=== PATIENT | female | born 1985 | race Caucasian/White ===

== ENCOUNTER 2018-01-27 13:06 | Inpatient (IN) | payer OTHER ==
[2018-01-27] MEDS ORDERED: Ondansetron ODT 4 MG TAB PO PRN (13:47)
[2018-01-27] MEDS ORDERED: Ondansetron PF 4 MG/2 ML Vial IVP PRN (13:47)
[2018-01-27] MEDS ORDERED: Dextrose 5% in Water 1,000 ML IV PRN (13:47)
[2018-01-27] MEDS ORDERED: Dextrose 50% Abboject 50 ML SYRINGE SLOW IVP PRN (13:47)
[2018-01-27] MEDS ORDERED: Sodium Chloride 0.9% 10 ML ONE (13:54)
[2018-01-27] MEDS ORDERED: HumaLOG 300 UNITS/3 ML VIAL SC SCH (14:00)
--- NOTE | 2018-01-27 14:16 | PDOC.FPRHP ---
- History of Present Illness Chief Complaint: uncontrolled blood sugars History of Present Illness: 32F seen today at clinic for routine Ob visit. She is a at 9.3 weeks dated by 6.2 week US. Denies vaginal bleeding, LOF, abdominal pain/cramping. Endorses movement. PMH significant for chronic hypertension and pregestational IDDM. Per patient, her BS normally ranged from 350 to 400 prior to . For the last 9 weeks her fasting AM BS readings have been between 150 and 200. She is being admitted for uncontrolled BS with a need to titrate insulin. She is currently asymptomatic with no complaints. She has been compliant with her medication regimen. PCP has been titrating insulin dosages in OP setting with mild success. - Allergies/Adverse Reactions Allergies Allergy/AdvReac Type Severity Reaction Status Date / Time diphenhydramine Allergy Verified 01/27/18 14:17 [From Benadryl] - Home Medications Comments: She has titrated her Lantus to 20u qAM and Novolog to 13u before meals per her PCP's instructions - History PMHx: chronic HTN, IDDM, HLD, depression PSHx: bilateral tympanostomy tubes, adenoidectomy FHx: mother of lung cancer at age 60; father of colon cancer at age 53 Social: negative x 3 - Review of Systems General: denies: fever/chills, weight/appetite/sleep changes ENT: denies: nasal congestion, rhinorrhea Respiratory: denies: cough, congestion Cardiovascular: denies: chest pain, palpitation Gastrointestinal: reports: nausea. denies: diarrhea, abdominal pain Genitourinary: denies: dysuria, polyuria Skin: denies: rashes, lesions Musculoskeletal: denies: pain, tenderness Neurological: denies: numbness, syncope Psychological: denies: anxiety, depression - Vital signs BP: 125/75 HR: 94 RR: 16 Tmax: 97.6 Pox: 98% on RA - Physical Exam Constitutional: NAD HEENT: normocephalic and atraumatic Neck: supple, trachea midline Heart: RRR, normal S1/S2 Lungs: CTAB, no respiratory distress Abdomen: soft, non-tender, no masses/distention Neurological: no focal deficit, CN II-XII intact Skin: no rash/lesions, good turgor Psychiatric: normal mood and affect FMR H&P: Results - Labs Result Diagrams: 01/27/18 14:11 FMR H&P: A/P - Problem List (1) IDDM (insulin dependent diabetes mellitus) Current Visit: No Status: Chronic Priority: High Code(s): E11.9 - TYPE 2 DIABETES MELLITUS WITHOUT COMPLICATIONS; Z79.4 - INDUSTRIAL HYGIENIST (CURRENT) USE OF INSULIN Assessment and Plan: Last A1C: 10.3 Initiate Lantus 30u qAM with Humalog 17u premeal and mild SSI to cover Accuchecks: fasting AM, premeal, 2 hours post-prandial, and 0200 overnight Titrate accordingly (2) Hypertension Current Visit: No Status: Chronic Priority: Medium Code(s): I10 - ESSENTIAL (PRIMARY) HYPERTENSION Qualifiers: Hypertension type: essential hypertension Qualified Code(s): I10 - Essential (primary) hypertension Assessment and Plan: 2+ urine protein in office today Order 24h urine protein CMP pending Pressures well controlled on admission; continue to monitor (3) Intrauterine normal Current Visit: No Status: Acute Code(s): Z34.90 - ENCNTR FOR SUPRVSN OF NORMAL , UNSP, UNSP TRIMESTER FMR H&P: Upper Level - Plan Date/Time: 01/27/18 1408 I, [], have evaluated this patient and agree with findings/plan as outlined by internal medicine doctor resident. Pertinent changes/additions are listed here. Attending Addendum - Attending Addendum Date/Time: 01/28/18 1051 I personally evaluated the patient and discussed the management with Dr. Sheriff. I agree with and repeated the History, Examination, Assessment and Plan documented above with any addition or exceptions noted below. I have previously discussed in clinic her risks, including malformations, CHD, IUGR, LGA, Shoulder dystocia and NICU stay. She has failed outpatient titration and we will watch her very closely in the hospital. She voices understanding.
[2018-01-27 14:38] LABS: ALT (SGPT) 25 U/L (8-55); AST (SGOT) 20 U/L (5-34); Albumin 3.5 g/dL (3.5-5.0); Alkaline Phosphatase 66 U/L (40-150); Anion Gap 11 mmol/L (10-20); BUN (Urea Nitrogen) 9 mg/dL (7.0-18.7); Bilirubin, Total 0.2 mg/dL (0.2-1.2); Calc. Creatinine Clearance 0 mL/min (70-130); Carbon Dioxide 23 mmol/L (22-29); Chloride 106 mmol/L (98-107); Estimated GFR-MDRD Greater than 90; Glucose 190 mg/dL (70-105); Potassium 3.9 mmol/L (3.5-5.1); Protein, Total 6.5 g/dL (6.0-8.3); Sodium 136 mmol/L (136-145)
[2018-01-27] MEDS: HumaLOG 300 UNITS/3 ML VIAL SC SCH ×2 (15:28→18:57)
[2018-01-27] MEDS: HumaLOG 300 UNITS/3 ML VIAL SC PRN ×2 (15:29→18:57)
[2018-01-27 16:12] VITALS: BMI 50.1
[2018-01-27] MEDS: Acetaminophen 325 MG TAB PO PRN (19:22)
[2018-01-28 02:44] LABS: Glucose Accucheck Confirmation 109 mg/dl (70-105)
[2018-01-28] MEDS: Acetaminophen 325 MG TAB PO PRN ×2 (06:07→16:46)
--- NOTE | 2018-01-28 08:34 | PDOC.FM ---
- Subjective Subjective: 32 yo @9.4wks by 6.4wk elver admitted for uncontrolled type 2 diabetes. She was started on insulin about one week ago with difficulty in obtaining control. Prior to insulin she was on metformin and glyburide. Her regimen was increased yesterday upon admission to 30U Lantus qAM and 17U humalog AC. So far she has needed an additional 4 units. She denies complaints this morning. She was diagnosed with type 2 diabetes at 21 years old and she also has hypertension. She used to take amlodipine, which was dc'd upon discovering she was . Her father has it as well. Her mother and father also have hypertension also. - Objective MAR Reviewed: Yes Vital Signs & Weight: Vital Signs (12 hours) Temp Pulse Resp BP Pulse Ox 01/28/18 08:15 91 131/74 01/28/18 07:51 98.3 F 90 18 154/74 H 99 01/28/18 03:39 98.3 F 94 16 123/78 98 01/27/18 23:20 98.2 F 85 20 130/75 Weight Weight 131.995 kg I&O: 01/27/18 01/28/18 01/29/18 06:59 06:59 06:59 Output Total 750 Balance -750 Result Diagrams: 01/27/18 14:11 <Kesha Lockett - Last Filed: 01/28/18 09:19> - Objective Vital Signs & Weight: Vital Signs (12 hours) Temp Pulse Resp BP Pulse Ox 01/28/18 11:49 97.8 F 88 20 129/60 01/28/18 08:15 91 131/74 99 01/28/18 07:51 98.3 F 90 18 154/74 H 99 01/28/18 03:39 98.3 F 94 16 123/78 98 Weight Weight 131.995 kg I&O: 01/27/18 01/28/18 01/29/18 06:59 06:59 06:59 Output Total 750 150 Balance -750 -150 Result Diagrams: 01/27/18 14:11 <Magdi Zhang - Last Filed: 01/28/18 13:56> Phys Exam - Physical Examination Constitutional: NAD HEENT: PERRLA, moist MMs Respiratory: no wheezing, no rales, no rhonchi, clear to auscultation bilateral Cardiovascular: RRR, no significant murmur Gastrointestinal: soft, non-tender, no distention Musculoskeletal: no edema, pulses present Neurological: non-focal, normal sensation Psychiatric: normal affect, A&O x 3 Skin: no rash <Kesha Lockett - Last Filed: 01/28/18 09:19> Dx/Plan (1) Type 2 diabetes mellitus affecting in first trimester, antepartum Code(s): O24.111 - PRE-EXISTING TYPE 2 DIABETES, IN , FIRST TRIMESTER Status: Chronic (2) First trimester Code(s): Z34.91 - ENCNTR FOR SUPRVSN OF NORMAL PREG, UNSP, FIRST TRIMESTER Status: Acute (3) Hypertension Code(s): I10 - ESSENTIAL (PRIMARY) HYPERTENSION Status: Chronic Qualifiers: Hypertension type: essential hypertension Qualified Code(s): I10 - Essential (primary) hypertension - Plan Plan: 32 yo @9.4wks by 6.4wk sono admitted for uncontrolled type 2 diabetes. #sIUP #Type 2 Diabetes, uncontrolled, affecting -accuchecks AC, postprandial, and qAm fasting -regimen increased to 30U Lantus daily and 17U Humalog AC -mild sliding scale onboard; so far since admission yesterday afternoon, pt has required 4U Humalog additionally -will consult dietitian for support on diet #Chronic Hypertension -pt was taking amlodipine which was dc'd in -will monitor here -24 hour urine protein in progess 2/2 2+ protein on urine dip in clinic -24 hour urine protien in clinic: 1500mg/24 hr #sIUP- -HR, would recommend aspirin at 12 weeks and recommend MFM referral, and surveillance starting at 32 weeks -Follow-up with him upon discharge regarding management <Kesha Lockett - Last Filed: 01/28/18 09:19> Attending Addendum - Attending Addendum Date/Time: 01/28/18 0682 I personally evaluated the patient and discussed the management with Dr. Lizet Zamarripa. I agree with the History, Examination, Assessment and Plan documented above with any addition or exceptions noted below. No c/o's. Vitals stable, single episode SBP >140. Insulin adjusted. Dietary counselling. Weight neutral . Supervised self-administration of insulin and monitoring of accuchecks. <Magdi Zhang - Last Filed: 01/28/18 13:56>
[2018-01-28] MEDS ORDERED: Insulin Glargine 30 UNITS in Pre-Filled Syringe 1 EACH SC SCH (09:00)
[2018-01-28] MEDS: HumaLOG 300 UNITS/3 ML VIAL SC SCH ×3 (09:01→17:49)
[2018-01-28 14:56] LABS: Collection Duration 24 hrs; Urine Total Volume 1200 mL (600-1600)
[2018-01-28 15:24] LABS: Protein - 24 Hr 1080 mg/24 hr (Less than 300); Protein, Urine 90 mg/dL (1-14)
[2018-01-28] MEDS ORDERED: Ondansetron ODT 4 MG TAB PO PRN (16:03)
[2018-01-28] MEDS: HumaLOG 300 UNITS/3 ML VIAL SC PRN (17:49)
--- NOTE | 2018-01-29 08:07 | PDOC.FM ---
- Subjective Subjective: No acute events overnight. - Objective MAR Reviewed: Yes Vital Signs & Weight: Vital Signs (12 hours) Temp Pulse Resp BP Pulse Ox 01/29/18 03:24 98.3 F 92 18 140/81 97 01/28/18 23:37 97.9 F 82 18 140/73 100 Weight Weight 86.183 kg I&O: 01/28/18 01/29/18 01/30/18 06:59 06:59 06:59 Output Total 750 150 Balance -750 -150 Result Diagrams: 01/27/18 14:11 Phys Exam - Physical Examination Constitutional: NAD HEENT: PERRLA, moist MMs Respiratory: no wheezing, no rales, clear to auscultation bilateral Cardiovascular: RRR, no significant murmur Gastrointestinal: soft, non-tender Musculoskeletal: no edema, pulses present Neurological: non-focal Psychiatric: normal affect, A&O x 3 Skin: no rash Dx/Plan (1) Type 2 diabetes mellitus affecting in first trimester, antepartum Code(s): O24.111 - PRE-EXISTING TYPE 2 DIABETES, IN , FIRST TRIMESTER Status: Chronic (2) First trimester Code(s): Z34.91 - ENCNTR FOR SUPRVSN OF NORMAL PREG, UNSP, FIRST TRIMESTER Status: Acute (3) Hypertension Code(s): I10 - ESSENTIAL (PRIMARY) HYPERTENSION Status: Chronic Qualifiers: Hypertension type: essential hypertension Qualified Code(s): I10 - Essential (primary) hypertension - Plan Plan: 32 yo @9.5wks by 6.4wk elver admitted for uncontrolled type 2 diabetes. #Type 2 Diabetes, uncontrolled, affecting -accuchecks AC, postprandial, and qAm fasting -regimen increased to 30U Lantus daily and 17U Humalog AC, required additional 6U Lispo overnight -Increased 33U Lantus daily and to 18U AC today. Will also change sliding scale to the same short acting that she is using before meals. -will consult dietitian for support on diet #Chronic Hypertension -pt was taking amlodipine which was dc'd in -will monitor here -24 hour urine protein here showed 1080mg/24 hours -24 hour urine protien in clinic: 1500mg/24 hr #sIUP- -High risk, would recommend aspirin at 12 weeks and recommend MFM referral -Follow-up with him upon discharge regarding management
[2018-01-29] MEDS ORDERED: Insulin Glargine 33 UNITS in Pre-Filled Syringe 1 EACH SC SCH (09:00)
[2018-01-29] MEDS: HumaLOG 300 UNITS/3 ML VIAL SC SCH ×3 (09:46→18:08)
[2018-01-29] MEDS: HumaLOG 300 UNITS/3 ML VIAL SC PRN (12:48)
[2018-01-29 20:20] VITALS: BP 139/70; TEMP 98
== END 2018-01-29 21:30 | disposition home or self-care (01) | DRG 832 ==
LOC: OBSVTOIN 13:06 → 3SW 13:06
PROVIDERS: ADMIT Family Medicine; ATTEND Family Medicine
DX: O24.111 Pre-existing type 2 diabetes mellitus, in pregnancy, first trimester (principal); O10.011 Pre-existing essential hypertension complicating pregnancy, first trimester; E11.65 Type 2 diabetes mellitus with hyperglycemia; Z3A.09 9 weeks gestation of pregnancy; N76.0 Acute vaginitis; O09.891 Supervision of other high risk pregnancies, first trimester; O99.341 Other mental disorders complicating pregnancy, first trimester; F41.9 Anxiety disorder, unspecified; F32.9 Major depressive disorder, single episode, unspecified; Z79.4 Long term (current) use of insulin; E78.5 Hyperlipidemia, unspecified
CPT/HCPCS: 36415; 36416; 80053; 82947; 84156; Q0162

== ENCOUNTER 2018-06-17 21:00 | Inpatient (IN) | payer OTHER ==
[~2018-06-17 21:00] MED LIST: ISOVUE-370 76%-LOCM 1 ML ONE
[2018-06-17 21:50] VITALS: BMI 46.3
[2018-06-17 23:25] LABS: #Eosinphils 0.1 thou/uL (0.0-0.7); #Lymphocytes 3.2 thou/uL (1.20-3.40); #Monocytes 0.7 thou/uL (0.11-0.59); #Neutrophils 12.2 thou/uL (1.40-6.50); %Basophils 0.2 % (0.0-1.0); %Eosinophils 0.5 % (0.0-10.0); %Lymphocytes 19.7 % (21.0-51.0); %Monocytes 4.2 % (0.0-10.0); %Neutrophils 75.4 % (42.0-75.0); Hemoglobin 11.2 g/dL (12.0-16.0); Mean Corpuscular Hemoglobin 25.4 pg (27.0-31.0); Mean Corpuscular Volume 79.4 fL (78.0-98.0); Mean Platelet Volume 7.1 fL (7.4-10.4); Platelet Count 282 thou/uL (130-400); RBC Distribution Width 13.6 % (11.5-14.5); Red Blood Cell (RBC) Count 4.43 mill/uL (4.20-5.40); White Blood Cell (WBC) Count 16.1 thou/uL (4.8-10.8)
--- NOTE | 2018-06-17 23:25 | PDOC.FPRHP ---
- Allergies/Adverse Reactions Allergies Allergy/AdvReac Type Severity Reaction Status Date / Time diphenhydramine Allergy Hives Verified 06/17/18 21:37 [From Benadryl] - Home Medications Medication Instructions Recorded Confirmed Type Pnv No.95/Ferrous Fum/Folic AC 1 each PO DAILY 01/27/18 06/17/18 History [ Vitamin Tablet] metFORMIN HCl [Metformin HCl] 1 tablet PO DAILY 01/27/18 06/17/18 History pyridOXINE [Vitamin B 6] 100 mg PO DAILY 01/27/18 06/17/18 History FLUoxetine HCl [Prozac] 20 mg PO HS 06/17/18 06/17/18 History HumaLOG [HumaLOG Vial] 21 units SC AC 06/17/18 06/17/18 History Insulin Glargine [Lantus Vial] 40 units SC QPM 06/17/18 06/17/18 History Ranitidine HCl [Zantac 75] 75 mg PO DAILY 06/17/18 06/17/18 History - History PMHx: PSHx: FHx: Social: - Vital signs BP: [] HR: [] RR: [] Tmax: [] Pox: []% on [] Wt: [] FMR H&P: Upper Level - Plan Date/Time: 06/17/18 8053 I, [], have evaluated this patient and agree with findings/plan as outlined by design intern resident. Pertinent changes/additions are listed here.
--- NOTE | 2018-06-17 23:28 | PDOC.FPROB ---
FMR OB H&P: HPI - History of Present Illness Chief Complaint: Headache Indentification: G1 History of Present Illness: 33yo G1 at 30.3w EGA by 12.1w US with hx of cHTN, DM2, and migraine presents for evaluation of headache, and stroke like symptoms. Pt reports she took her BP at work on a self checking station and had 203/100. She checked again at home and 140/80. She decided to come to [facility] because she started having a HEAD that has worsened up to time of evaluation. Additionally pt complains of "white blobs" visual disturbance in her peripheral vision. She reports that she has hx of migrain but became concerned when she also started having L facial numbness and facial droop. Facial symptoms lasted 10 minutes, resolved spontaneously and resumed an hour later only to resolve again after 2 minutes. No vaginal bleeding /LOF/contractions, good mvmt. Primary Care Physician: Doctor Mal Vargas FMR OB H&P: Current - Care : 1 Gestational age: 30.3 Dating Criteria: 12.1w US - OB Labs Blood type: O RH: positive Antibody Screen: negative HIV: negative RPR: negative HepBsAg: negative Gonorrhea: negative Chlamydia: negative FMR OB H&P: History - Past Medical History PMH: DM2, cHTN, PCOS, seizure d/o, migraine, chronic sinus tachycardia - Surgical History Sx History: tonsills - Social History Social History: denies t/a/d - Family History Family History: [place]- mother FMR OB H&P: Medications - Current Home Medications: Medication Instructions Recorded Confirmed Type Pnv No.95/Ferrous Fum/Folic AC 1 each PO DAILY 01/27/18 06/17/18 History [ Vitamin Tablet] metFORMIN HCl [Metformin HCl] 1 tablet PO DAILY 01/27/18 06/17/18 History pyridOXINE [Vitamin B 6] 100 mg PO DAILY 01/27/18 06/17/18 History FLUoxetine HCl [Prozac] 20 mg PO HS 06/17/18 06/17/18 History HumaLOG [HumaLOG Vial] 21 units SC AC 06/17/18 06/17/18 History Insulin Glargine [Lantus Vial] 40 units SC QPM 06/17/18 06/17/18 History Ranitidine HCl [Zantac 75] 75 mg PO DAILY 06/17/18 06/17/18 History Allergies/Adverse Reactions: Allergies Allergy/AdvReac Type Severity Reaction Status Date / Time diphenhydramine Allergy Hives Verified 06/17/18 21:37 [From Benadryl] FMR OB H&P: ROS - Review of Systems General: denies: fever/chills, fatigue, recent trauma Eyes: reports: vision changes. denies: double vision ENT: denies: nasal congestion, ringing in ears Cardiovascular: denies: chest pain, palpitation Respiratory: denies: cough, congestion Gastrointestinal: denies: abdominal pain, diarrhea Genitourinary (Female): denies: incontinence, dysuria Musculoskeletal: denies: pain, stiffness Neurologic: reports: numbness, headache. denies: syncope, seizures, weakness, loss of counsciousness Integumentary: denies: itching, rash Endocrine: denies: cold intolerance, heat intolerance Hematologic/Lymphatic: denies: prolonged or excessive bleeding Psychological: denies: anxiety, paranoia FMR OB H&P: Vital Signs - Maternal Vital signs: Vital Signs - First Documented Temp Pulse Resp BP 98.2 F 105 H 20 140/82 06/17/18 21:22 06/17/18 21:22 06/17/18 21:22 06/17/18 21:22 FMR OB H&P: Physical Exam - Physical Exam General: NAD, awake, alert and oriented HEENT: EOMI, grossly normal vision, grossly normal hearing Neck: supple, trachea midline Chest: non-tender to palpation Breast: symmetric Heart: RRR, normal S1/S2 General: CTAB, no respiratory distress Abdomen: soft, gravid Musculoskeletal: pulses present, no atrophy Neurological: sensation to pain,touch and proprioception grossly normal, DTR +2 , strength +5, no clonus, no tremor, no focal deficit, other (L facial sensation 4/5, otherwise CN 2-12 intact) Skin: no rash, good tugor Lymphatic: no purpura, no petechia Psychiatric: intact recent and remote memory, good judgement and insight FMR OB H&P: Results - Labs Lab results: Laboratory Results - last 24 hr 06/17/18 23:18 WBC 16.1 H RBC 4.43 Hgb 11.2 L Hct 35.2 L MCV 79.4 MCH 25.4 L MCHC 32.0 RDW 13.6 Plt Count 282 MPV 7.1 L Neutrophils % 75.4 H Lymphocytes % 19.7 L Monocytes % 4.2 Eosinophils % 0.5 Basophils % 0.2 Neutrophils # 12.2 H Lymphocytes # 3.2 Monocytes # 0.7 H Eosinophils # 0.1 Basophils # 0.0 FMR OB H&P: A/P - Problem List (1) Diabetes Current Visit: Yes Status: Acute Code(s): E11.9 - TYPE 2 DIABETES MELLITUS WITHOUT COMPLICATIONS (2) Migraine Current Visit: Yes Status: Acute Code(s): G43.909 - MIGRAINE, UNSP, NOT INTRACTABLE, WITHOUT STATUS MIGRAINOSUS (3) Hypertension Current Visit: No Status: Chronic Code(s): I10 - ESSENTIAL (PRIMARY) HYPERTENSION Qualifiers: Hypertension type: essential hypertension Qualified Code(s): I10 - Essential (primary) hypertension Discussion: Complex migraine vs. TIA vs. CVA A- L facial symptoms and home BP taken at work concerning for stroke though pt does have hx of migraine and visual aura is typical. BPs are stable on floor now with SBP not exceeding 140. P- Activate code green/code stroke with attached imaging and labwork -CT brain w/o contrast -CTA head and neck w/wo contrast -use shield to avoid irradiating fetus -pending normal workup will consider transfer to [facility] with neuro checks, q- shift NST, and AM MRI chronic hypertension A- readings on self check machine at [facility] were quite elevated however checks at home and in labor and delivery consistent with pressures taken in clinic SBP 140 at highest. Pt had 24hr protein collected in clinic early in the morning P- CBC, CMP, urine protein/cr - will check to see if clinic lab 24 urine protein has resulted - monitor BP and for severe pressure symptoms DM -home meds Addendum - Attending - Attending Attestation Date/Time: 06/18/18 0600 I personally evaluated the patient and discussed the management with Dr. Zimmerman and Divine. I agree with and repeated the History, Examination, Assessment and Plan documented above with any addition or exceptions noted below. Headache resolved by the time I evaluated her. She has had a couple episodes of facial numbness and feeling like her face is weak. No arm or leg numbness or weakness. No dysarthria or dysphagia. CN II-XII specifically testing and symmetric with the exception of v1 on the left. Motor 5/5; SILT otherwise. No clonus. No inc DTRs.
[2018-06-17 23:30] LABS: PTT 26.8 SEC (22.9-36.1); Prothrombin Time 13.6 SEC (12.0-14.7)
--- NOTE | 2018-06-17 23:39 | CT ---
FHead CT without contrast 06/17/2018 COMPARISON: none HISTORY: Left-sided facial droop and numbness, headache TECHNIQUE: Axial CT imaging at 5 mm intervals from vertex through skull base without contrast FINDINGS: The imaged paranasal sinuses/mastoid air cells demonstrate a few inferior opacified mastoid air cells on the right. No acute osseous abnormality is noted. No intracranial hemorrhage, midline s hift, mass effect, or ventricular enlargement. IMPRESSION: No intracranial hemorrhage.
[2018-06-17 23:40] LABS: ALT (SGPT) 27 U/L (8-55); AST (SGOT) 22 U/L (5-34); Albumin 3.4 g/dL (3.5-5.0); Alkaline Phosphatase 70 U/L (40-150); Anion Gap 16 mmol/L (10-20); BUN (Urea Nitrogen) 9 mg/dL (7.0-18.7); Bilirubin, Total 0.2 mg/dL (0.2-1.2); CK (CPK) 37 U/L (29-168); Calc. Creatinine Clearance 284 mL/min (70-130); Calcium 9.3 mg/dL (7.8-10.44); Carbon Dioxide 21 mmol/L (22-29); Chloride 104 mmol/L (98-107); Estimated GFR-MDRD Greater than 90; Globulin 3.5 g/dL (2.4-3.5); Glucose 102 mg/dL (70-105); Potassium 3.7 mmol/L (3.5-5.1); Protein, Total 6.9 g/dL (6.0-8.3); Sodium 137 mmol/L (136-145)
[2018-06-17 23:45] LABS: CKMB 1.1 ng/mL (0-6.6); Troponin I Less than 0.010 ng/mL (< 0.028)
[2018-06-17 23:58] LABS: Syphilis Antibody Nonreactive (Nonreactive); Syphilis Antibody Index 0.11 S/CO (<1.00 Non-Reactive)
--- NOTE | 2018-06-17 23:58 | CT ---
FCT angiogram of head and neck: 06/17/2018 COMPARISON: None HISTORY: Headache, left-sided facial droop and numbness TECHNIQUE: Axial CT imaging at 1.25 mm intervals from vertex through lung apices with IV contrast usi ng a CT angiogram protocol. Coronal and sagittal 3-D reformatted imaging obtained. FINDINGS: The visualized lung apices are unremarkable. The paranasal sinuses and mastoid air cells demonstrate partial opacification of the right mastoid ai r cells. Polypoid mucosal thickening of the left maxillary sinus inferiorly noted. Parotid glands and submandibular glands grossly unremarkable. Thyroid gland, cricoid cartilage, thyroid cartilage, hyoi d bone, and tonsillar pillars grossly unremarkable. No lymphadenopathy is seen within the neck. Origin of the great vessels appears grossly unremarkable. Detailed assessment of the structures of th e neck somewhat limited on the basis of streak artifact associated with body habitus. Bilateral verte bral arteries appear grossly unremarkable. No hemodynamically significant stenosis on the basis of NASCET criteria is seen involving the common carotid artery or the internal carotid artery on either side. The basilar artery appears patent as do the branches of the basilar artery. The M1 segment and A1 seg ment appears patent bilaterally. No central arterial occlusion. No acute osseous abnormality. IMPRESSION: No acute findings. Results called to Dr. Zimmerman at 11:55 PM 06/17/2018
[2018-06-17 23:59] LABS: HBSAg Index 0.43 S/CO (0-0.99); Hep B Surf Ag Non-Reactive S/CO (NonReactive)
[2018-06-18] MEDS ORDERED: Ondansetron PF 4 MG/2 ML Vial IVP PRN (00:19)
[2018-06-18 00:21] LABS: Amphetamine Not Detected (NotDetected); Barbiturates Screen Not Detected (NotDetected); Benzodiazepine Screen Not Detected (NotDetected); Cocaine Metabolite Screen Not Detected (NotDetected); Medtox Reader # READER 1; Methadone Not Detected (NotDetected); Methamphetamine Not Detected (NotDetected); Opiate Screen Not Detected (NotDetected); Oxycodone Screen Not Detected (NotDetected); Phencyclidine (PCP) Not Detected (NotDetected); THC/Cannabinoid Screen Not Detected (NotDetected); Tricyclic Screen Not Detected (NotDetected)
[2018-06-18 00:22] LABS: Medtox Control Line Valid? VALID (VALID)
[2018-06-18 00:25] LABS: Creatinine, Urine 186.42 mg/dL (47-110)
[2018-06-18] MEDS ORDERED: Dextrose 50% Abboject 50 ML SYRINGE SLOW IVP PRN (00:30)
[2018-06-18] MEDS ORDERED: Dextrose 5% in Water 1,000 ML IV PRN (00:30)
[2018-06-18] MEDS ORDERED: Acetaminophen 500 MG TAB PO PRN (01:14)
--- NOTE | 2018-06-18 02:19 | CON ---
DATE OF CONSULTATION: 06/18/2018 REFERRING PHYSICIAN: Dr. Chiang. CHIEF COMPLAINT: Headache and elevated blood pressures with facial paresthesias or tingling. HISTORY OF PRESENT ILLNESS: The patient is a 33-year-old G1, P0 female with an intrauterine at 30 weeks and 4 days, who presented to Labor and Delivery after experiencing a high blood pressure in the 200 systolic by a [employer] automatic cuff and associated facial drooping and numbness. Upon arrival, the patient was noted to have blood pressures in the 140s. A code green was called and a stroke assessment was performed and imaging was also performed, which revealed negative results. At time of my evaluation, the patient reports that she is feeling somewhat better. She is still having headache that she describes as frontal. She denies any light or sound sensitivity or any significant nausea associated with it. She does report she has a history of migraines and in the last month or so has been having about 3 migraines a week. The patient reports that this headache does not have the intensity that her migraines have. She did take Tylenol earlier today and has had some benefit. The patient reports that she has been having borderline normal to elevated blood pressures in the office in the 130s to 140s over 80s to 90s. Her nurse did report that she had a 24 hour urine collection that was turned in earlier today. The patient denies any recent fever. She does report a chronic intermittent cough. She reports nausea with vomiting a couple times a week. She denies chest pain. She reports some shortness of breath in the last few weeks. Denies diarrhea or constipation. Denies any new rashes. Denies hip problems, knee problems, or muscle weakness. Denies vaginal bleeding or leakage of fluid. Denies urinary urgency. The patient reports that she is a diabetic and her blood sugars have been ranging in the 130s to 140s 2 hours postprandial. PAST MEDICAL HISTORY: Anxiety, prediabetes and heartburn. ALLERGIES: BENADRYL. MEDICATIONS: 1. Metformin. 2. B6. 3. Prozac 20 mg at night. 4. Humalog 21 units before meals and Lantus 40 units at night. 5. Zantac 75 mg daily. SOCIAL HISTORY: Denies drug, alcohol or tobacco use. OB LABS: Unavailable at time of dictation. REVIEW OF SYSTEMS: Per HPI. PAST SURGICAL HISTORY: The patient reports tonsillectomy. PHYSICAL EXAMINATION: VITAL SIGNS: The patient's blood pressure here in Labor and Delivery have been primarily in the mild range, 140s to 150 systolic over 70s to 80s diastolic. She has had a single 166/86 and had couple normal blood pressures as low as 125/65, heart rate in the 100s, respiratory rate 20, temperature 98.2. GENERAL: She appears to be in no acute distress. She is alert, oriented, cooperative, pleasant to interact with. HEAD: Normocephalic, atraumatic. LUNGS: Clear to auscultation bilaterally. HEART: Has regular rate, was slightly tachycardic and regular rhythm. heart tracing demonstrates the fetus in the 140s with moderate long-term variability, positive 15/15 accelerations. Tocometer showing no contractions. LABORATORY DATA: White count of 16.1, hemoglobin 11.2, hematocrit 35.2, platelets 282,000. PT 13.6, INR 1.08, PTT 26.8. Sodium 137, potassium 3.7, creatinine 0.59, glucose of 102, AST of 22, ALT of 27, CK-MB 1.1, troponin less than 0.010. Urine shows a urine random protein of 88 and creatinine of 186, which gives her a ratio of 0.47. Urine drug screen is negative. Syphilis is nonreactive. Blood type is O positive. Antibody screen is negative. ASSESSMENT AND PLAN: The patient is a 33-year-old female with preeclampsia, diabetes and anxiety. Preeclampsia is diagnosed by elevated blood pressures and proteinuria. Her diabetes is reportedly under moderate control. Her blood sugar at this time is within normal limits at 102. The patient has had a single severe range pressure. Should she continue to have severe range pressures, recommendations would be to institute magnesium and attempt to find an oral regimen that can control her pressures into the 140s and 150 systolic and 90s diastolic. Should this be difficult to do, recommendations with the delivery after institution of steroids is possible. However, this time her pressures have been primarily mild range without any intervention. Should she need intervention, labetalol 20 mg IV or hydralazine 10 mg would be at reasonable place to start. Another option would be 20 mg of nifedipine sublingually. The patient is being admitted to the Family Medicine team. We would continue her home medications and given that the patient has just returned a 24 hour urine collection this morning, we would not necessarily repeat another one at this time. If not done so yet, an ultrasound to determine presentation and weight would be appropriate. Also given her total picture, it may be appropriate to institute a course of steroids for lung maturity. Thank you for the opportunity to participate in Ms. Casi Sheriff's acid missed care. Addendum. correction: Pt does have baseline proteinuria with baseline at 1500- and repeat 24hr urine protein at 250 Pt has chtn but no clear evidence of si preeclampsia at this time. Job ID: [id number] [facility] CENTERStalin
--- NOTE | 2018-06-18 06:08 | PDOC.EVN ---
Event Note - Event Note Event Note: 24 urine protein from clinic in 1T was 1500 mg.
[2018-06-18] MEDS: HumaLOG 300 UNITS/3 ML VIAL SC SCH ×2 (07:52→12:33)
--- NOTE | 2018-06-18 08:07 | PDOC.OBAPN ---
FMR OB AP PN: Sub - Interval History Hospital Day: 2 Chief Complaint: HEAD, elevated BP Indentification: 33yo G1 @ 30.3 wks Interval History: Patient doing well this AM, resting in bed. No recurrence of symptoms. FMR OB AP PN: Obj - Maternal Vital signs: BP: 128-141/54-91 HR: 92-112 RR: 20 Tmax: 98.2 Pox: 98% on RA Wt: 130.2kg - Urine output I&O: 06/17/18 06/18/18 06/19/18 06:59 06:59 06:59 Intake Total 600 Output Total 150 Balance 450 FMR OB AP PN: Exam - Physical Exam General: NAD, awake, alert and oriented HEENT: normocephalic and atraumatic, PERRLA, EOMI, MMM, grossly normal vision, grossly normal hearing Neck: supple, FROM Chest: non-tender to palpation, no lesions Heart: RRR, normal S1/S2, no murmurs/rubs/gallops, pulses present, no edema General: CTAB, no respiratory distress, good air movement, no rales/rhonchi, no wheezing, no retractions Abdomen: soft, non-tender, bowel sound present Musculoskeletal: normal gait and station, FROM in all four extremities Neurological: cranial nerves II through XII intact, sensation to pain,touch and proprioception grossly normal Skin: no rash, good tugor, capillary refill <2 seconds Psychiatric: intact recent and remote memory, good judgement and insight, normal mood and affect FMR OB AP PN: Data - Labs Lab results: Laboratory Results - last 24 hr 06/17/18 06/17/18 06/17/18 23:16 23:18 23:18 WBC RBC Hgb Hct MCV MCH MCHC RDW Plt Count MPV Neutrophils % Lymphocytes % Monocytes % Eosinophils % Basophils % Neutrophils # Lymphocytes # Monocytes # Eosinophils # Basophils # PT 13.6 INR 1.0 APTT 26.8 Sodium Potassium Chloride Carbon Dioxide Anion Gap BUN Creatinine Estimated GFR (MDRD) Glucose POC Glucose Calcium Total Bilirubin AST ALT Alkaline Phosphatase Creatine Kinase CK-MB (CK-2) Troponin I Serum Total Protein Albumin Globulin Albumin/Globulin Ratio U Random Total Protein Urine Creatinine Urine Opiates Screen Ur Oxycodone Screen Urine Methadone Screen Ur Propoxyphene Screen Ur Barbiturates Screen Ur Tricyclics Screen Ur Phencyclidine Scrn Ur Amphetamines Screen U Methamphetamines Scrn U Benzodiazepines Scrn U Cocaine Metab Screen U Cannabinoids Screen Drug Screen Comment Syphilis IgG/IgM Ab Nonreactive Hep Bs Antigen Non-Reactive Blood Type Antibody Screen 06/17/18 06/17/18 06/17/18 23:18 23:18 23:18 WBC 16.1 H RBC 4.43 Hgb 11.2 L Hct 35.2 L MCV 79.4 MCH 25.4 L MCHC 32.0 RDW 13.6 Plt Count 282 MPV 7.1 L Neutrophils % 75.4 H Lymphocytes % 19.7 L Monocytes % 4.2 Eosinophils % 0.5 Basophils % 0.2 Neutrophils # 12.2 H Lymphocytes # 3.2 Monocytes # 0.7 H Eosinophils # 0.1 Basophils # 0.0 PT INR APTT Sodium 137 Potassium 3.7 Chloride 104 Carbon Dioxide 21 L Anion Gap 16 BUN 9 Creatinine 0.59 L Estimated GFR (MDRD) Greater than 90 Glucose 102 POC Glucose Calcium 9.3 Total Bilirubin 0.2 AST 22 ALT 27 Alkaline Phosphatase 70 Creatine Kinase 37 CK-MB (CK-2) Troponin I Serum Total Protein 6.9 Albumin 3.4 L Globulin 3.5 Albumin/Globulin Ratio 1.0 L U Random Total Protein Urine Creatinine Urine Opiates Screen Ur Oxycodone Screen Urine Methadone Screen Ur Propoxyphene Screen Ur Barbiturates Screen Ur Tricyclics Screen Ur Phencyclidine Scrn Ur Amphetamines Screen U Methamphetamines Scrn U Benzodiazepines Scrn U Cocaine Metab Screen U Cannabinoids Screen Drug Screen Comment Syphilis IgG/IgM Ab Hep Bs Antigen Blood Type O POSITIVE Antibody Screen NEGATIVE 06/17/18 06/17/18 06/17/18 23:18 23:56 23:56 WBC RBC Hgb Hct MCV MCH MCHC RDW Plt Count MPV Neutrophils % Lymphocytes % Monocytes % Eosinophils % Basophils % Neutrophils # Lymphocytes # Monocytes # Eosinophils # Basophils # PT INR APTT Sodium Potassium Chloride Carbon Dioxide Anion Gap BUN Creatinine Estimated GFR (MDRD) Glucose POC Glucose Calcium Total Bilirubin AST ALT Alkaline Phosphatase Creatine Kinase CK-MB (CK-2) 1.1 Troponin I Less than 0.010 Serum Total Protein Albumin Globulin Albumin/Globulin Ratio U Random Total Protein 88 H Urine Creatinine 186.42 H Urine Opiates Screen Not Detected Ur Oxycodone Screen Not Detected Urine Methadone Screen Not Detected Ur Propoxyphene Screen Not Detected Ur Barbiturates Screen Not Detected Ur Tricyclics Screen Not Detected Ur Phencyclidine Scrn Not Detected Ur Amphetamines Screen Not Detected U Methamphetamines Scrn Not Detected U Benzodiazepines Scrn Not Detected U Cocaine Metab Screen Not Detected U Cannabinoids Screen Not Detected Drug Screen Comment Syphilis IgG/IgM Ab Hep Bs Antigen Blood Type Antibody Screen 06/18/18 06/18/18 06/18/18 00:00 01:19 06:29 WBC RBC Hgb Hct MCV MCH MCHC RDW Plt Count MPV Neutrophils % Lymphocytes % Monocytes % Eosinophils % Basophils % Neutrophils # Lymphocytes # Monocytes # Eosinophils # Basophils # PT INR APTT Sodium Potassium Chloride Carbon Dioxide Anion Gap BUN Creatinine Estimated GFR (MDRD) Glucose POC Glucose 111 H 100 Calcium Total Bilirubin AST ALT Alkaline Phosphatase Creatine Kinase CK-MB (CK-2) Troponin I Serum Total Protein Albumin Globulin Albumin/Globulin Ratio U Random Total Protein Urine Creatinine Urine Opiates Screen Ur Oxycodone Screen Urine Methadone Screen Ur Propoxyphene Screen Ur Barbiturates Screen Ur Tricyclics Screen Ur Phencyclidine Scrn Ur Amphetamines Screen U Methamphetamines Scrn U Benzodiazepines Scrn U Cocaine Metab Screen U Cannabinoids Screen Drug Screen Comment Syphilis IgG/IgM Ab Hep Bs Antigen Blood Type O POSITIVE Antibody Screen - Imaging Imaging: CT brain: nml CTA head/neck: nml MRI pending FMR OB AP PN: A/P - Problem List (1) Diabetes Current Visit: Yes Status: Acute Code(s): E11.9 - TYPE 2 DIABETES MELLITUS WITHOUT COMPLICATIONS (2) Migraine Current Visit: Yes Status: Acute Code(s): G43.909 - MIGRAINE, UNSP, NOT INTRACTABLE, WITHOUT STATUS MIGRAINOSUS (3) Intrauterine normal Current Visit: No Status: Acute Code(s): Z34.90 - ENCNTR FOR SUPRVSN OF NORMAL , UNSP, UNSP TRIMESTER (4) Hypertension Current Visit: No Status: Chronic Code(s): I10 - ESSENTIAL (PRIMARY) HYPERTENSION Qualifiers: Hypertension type: essential hypertension Qualified Code(s): I10 - Essential (primary) hypertension (5) IDDM (insulin dependent diabetes mellitus) Current Visit: No Status: Chronic Code(s): E11.9 - TYPE 2 DIABETES MELLITUS WITHOUT COMPLICATIONS; 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 TIA A- L facial symptoms and home BP taken at work concerning for stroke though pt does have hx of migraine and visual aura is typical. BPs are stable on floor now with SBP not exceeding 140. Suspect complex migraine more likely. - CT brain w/o contrast: nml; CTA head and neck w/wo contrast: nml - used shield to avoid irradiating fetus during these exams - Will continue with neuro checks, q-shift NST, and AM MRI pending Chronic hypertension A- readings on self check machine at [facility] were quite elevated however checks at home and in labor and delivery consistent with pressures taken in clinic SBP 140 at highest. Pt had 24hr protein collected in clinic early in the morning on 06/17/18 that came back 1500. - CBC: WBC 16.1, Hgb 11.2, Plt 282; CMP nml, urine protein/cr:0.46 - monitor BP and for severe pressure symptoms - continue daily asa DM - Will discuss stopping metformin on rounds, need to gain better control of sugars IUP, complicated by above factors - Will give dose of steroids for lung maturity DISPO: discharge today after results of MRI Case discussed with Dr. Ellison Discussion: Date/Time: 06/18/18 08 This H&P was discussed with [] and [] who agree with the above documentation and plan. FMR H&P: Upper Level - Pertinent history Upper Level/AOB Attestation 33 yo G1 at 30.4 wks dated by 12.1 wk US. PMH includes cHTN, Type F Diabetes, hx seizure disorder not currently on medications, hx migraines. Presented from work with CC of HEAD, flashing lights in her vision, and left sided facial numbness and left facial droop. Checked BP at work and found to be 200s/100s. Had resolved upon arrival to hospital. - Pertinent findings Vitals: 2 BP of 140s/90s. otherwise WNL CV: RRR Pulm CTA-B Neuro: CN2-12 intact, no focal deficits Labs: at baseline. - Plan Date/Time: 06/18/18 09 I, Mal Vargas MD, have evaluated this patient and agree with findings/plan as outlined by wedding planning internship resident. Pertinent changes/additions are listed here. 1. TIA vs Complex migraine vs. Pre-eclampsia superimposed on cHTN: BP have returned to baseline. Labs normal. CT normal. Plan for MRI today. Suspect complex migraine. 2. cHTN: BP meds not indicated 3. DM type F: continue accuchecks. will discuss stopping metformin on . 4. Patient had repeat baseline labs drawn in clinic on Thursday. results pending. Will call [facility] today. Addendum - Attending - Attending Attestation Date/Time: 06/18/18 [id number] I personally evaluated the patient and discussed the management with Dr. Beltran and Dr. Vargas I agree with the History, Examination, Assessment and Plan documented above with any addition or exceptions noted below. 33 yo female at 29.5 wks by 6.2 wk sono here for evaluation of elevated blood pressure HD#1 HERRERA: 08/29/18 Patient denies any symptoms currently. Patient reports increase in frequency of migraine headaches over the past 2 wks. Reports previously only occurred a few times a month during now occurring 3 times per week. No change in type of headache just increase in frequency. Patient concerned yesterday due to severe range blood pressures at work. Patient reports monitoring blood pressure at work 3 times at 10 minute rest intervals. Blood pressure ranged from 170 to 200 sBP over 100 dBP. Associated yesterday with facial numbness. No longer with symptoms. Does report noticing spots in her vision the other day that lasted only seconds. VS reviewed. Labs reviewed. Imaging reviewed. NAD. RRR. No murmurs. CTAB. No wheezing. Gravid. Nontender. BS present. Trace edema 1. cHTN with superimposed preeclampsia: Patient with spikes of severe range blood pressures. Reviewed nurse monitoring. Report severe range pressures but not documented in chart. Instructed to document all blood pressures. Instructed to call with severe range pressures. Patient's home logs consistent with normotension to mild range pressures only (until last night). Patient with improved proteinuria. Labs stable. Uric acid increased to 7.3 which is concerning for progression of disease. EKG without evidence of arrhythmia or conduction abnormality. Will start steroids for FLM due to risk for PTD because of early preE. Continue to closely monitor daily weights and blood pressures. Will obtain growth q 2 to 4 wks. Weekly BPP and umbilical artery dopplers as indicated. Trend labs q 72 hours or as indicated. Keep inpatient at this time. Will re-evaluate on daily basis to adjust plan but currently patient appears to have superimposed preeclampsia with risk for progression. 24 hour protein = 1500 mg (01/12/18) --> 225 mg (06/17/18) Cr = 0.52 --> 0.45 --> 0.59 --> 0.55 AST = 17 --> 19 --> 22 --> 21 PLT = 285 --> 299 --> 282 --> 220 Uric acid = 7.3 --> 7.3 29.5 wks EFW = 1465g (42%) JAY = 10.3 cm BPP = 8/8 S/D ratio = 1.89 2. Class F, pregestational DM: Has been seen by M for level II sono and ECHO. Reports reviewed. Grossly normal. However, patient has not been following up as directed. Patient currently on Lantus and Lispro. Will continue and adjust as needed for fasting goal of < 95 and 2 hours pp < 120. Continue carb controlled diet with 3 regular meals and 2 snacks. Adjustments made based on steroid dosing. A1c = 10.7% (01/12/18) --> 6.2% (06/17/18) 3. BMI 47: Patient with metabolic syndrome and PCOS. Unsure total weight gain in at this time. Continue daily weights. TSH (3.050 --> 0.948) WNL. Encourage breast feeding. 4. Migraine with aura: Patient with longstanding history of migraine headaches. Notes an increase in frequency over the past 2 wks. Yesterday possible complex migraine due to facial parasthesia. CT/CTA negative. 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 5. Rule out TIA: see #4. ECHO reviewed. No structural abnormalities. 6. hx of childhood seizure disorder: Last seizure age 9. Initial seizure at age 5. Was on Tegretol up to age 11. Level II sono grossly normal. 7. MDD: On SSRI. Watch for progression due to new diagnosis. 8. Childhood asthma: Resolved. 9. Family hx: CVA, CHD, HTN, DM, Thyroid dz, lung cancer, colon cancer 10. sIUP: IOB labs reviewed. No NIPT. Anatomy reviewed. Flu 01/2018. Tdap 2018. 3T negative. GBS negative (4/4/19) Dispo: Will continue to monitor inpatient. Will have laborist re-evaluate every 48 to 72 hours if stable. Vishal
[2018-06-18] MEDS: Prenatal Vitamin 1 TAB PO SCH (08:59)
[2018-06-18] MEDS: Famotidine 20 MG TAB PO SCH (08:59)
[2018-06-18] MEDS: pyridOXINE 50 MG (B6) TAB PO SCH (09:00)
[2018-06-18] MEDS ORDERED: metFORMIN 500 MG TAB PO SCH (09:00)
[2018-06-18] MEDS ORDERED: Aspirin 81 mg Enteric Coated Tablet PO SCH (10:15)
[2018-06-18 10:41] LABS: #Eosinphils 0.2 thou/uL (0.0-0.7); #Lymphocytes 2.6 thou/uL (1.20-3.40); #Monocytes 0.7 thou/uL (0.11-0.59); #Neutrophils 8.1 thou/uL (1.40-6.50); %Eosinophils 1.8 % (0.0-10.0); %Lymphocytes 22.2 % (21.0-51.0); %Monocytes 5.6 % (0.0-10.0); %Neutrophils 70.4 % (42.0-75.0); Hemoglobin 10.5 g/dL (12.0-16.0); Mean Corpuscular HGB CONC 32.7 g/dL (32.0-36.0); Mean Corpuscular Hemoglobin 25.5 pg (27.0-31.0); Mean Platelet Volume 6.8 fL (7.4-10.4); Platelet Count 220 thou/uL (130-400); RBC Distribution Width 13.5 % (11.5-14.5); Red Blood Cell (RBC) Count 4.11 mill/uL (4.20-5.40); White Blood Cell (WBC) Count 11.6 thou/uL (4.8-10.8)
[2018-06-18 11:04] LABS: ALT (SGPT) 27 U/L (8-55); AST (SGOT) 21 U/L (5-34); Albumin 2.9 g/dL (3.5-5.0); Alkaline Phosphatase 61 U/L (40-150); Anion Gap 11 mmol/L (10-20); BUN (Urea Nitrogen) 8 mg/dL (7.0-18.7); Bilirubin, Total 0.2 mg/dL (0.2-1.2); Calc. Creatinine Clearance 305 mL/min (70-130); Calcium 9.1 mg/dL (7.8-10.44); Carbon Dioxide 24 mmol/L (22-29); Chloride 105 mmol/L (98-107); Estimated GFR-MDRD Greater than 90; Glucose 94 mg/dL (70-105); Potassium 3.8 mmol/L (3.5-5.1); Protein, Total 5.9 g/dL (6.0-8.3); Sodium 136 mmol/L (136-145); Uric Acid 7.3 mg/dL (2.6-6.0)
--- NOTE | 2018-06-18 12:16 | ULT ---
OB ULTRASOUND UMBILICAL DOPPLER NONSTRESS BIOPHYSICAL PROFILE: HISTORY: Hypertension. Diabetes. TIA versus stroke. COMPARISON: None. TECHNIQUE: Sagittal and transverse imaging of a gravid uterus is performed. Nonstress biophysical profile is performed. Umbilical Doppler imaging is performed with color flow and Doppler imaging. FINDINGS: There is a single intrauterine gestation with variable/vertex presentation. Posterior placenta. The presence or absence of previa is difficult to assess on this examination due to shadowing. Cervix i s poorly defined. heart tones with a rate of 140 to 152 b.p.m. Amniotic fluid index is 10.3. BIOMETRY: BPD 7.80 cm, 31 weeks 2 days Head circumference 29.26 cm, 32 weeks 2 days Abdominal circumference 26.23 cm, 30 weeks 3 days Femur length 5.25 cm, 28 weeks 0 days Average age by sonography 30 weeks 4 days. Estimated delivery date is 08/23/2018. Estimated weight is 1,465 gm +/- 217 gm. NONSTRESS BIOPHYSICAL PROFILE: tone: 2. movement: 2. breathin. Amniotic fluid: 2. Total Score: 8 out of 8. Amniotic fluid index is 10.3 cm. UMBILICAL DOPPLER: At cord insertion 47.5 cm/s, at mid umbilical 42.8 cm/s, at placenta 51.4 cm/s. SD RATIOS: At the level of fetus 2.51, mid umbilical 1.89, at placenta 2.11. IMPRESSION: 1. Limited evaluation of the cervix. 2. Single intrauterine gestation with heart tones. Average age by sonography is 30 weeks 4 da ys. 3. Estimated weight is 1,465 gm +/- 217 gm. 4. Limited evaluation of the cervix. Cervical length cannot be determined. 5. Umbilical artery Doppler as above. 6. 8 out of 8 nonstress biophysical profile. POS: OFF
--- NOTE | 2018-06-18 12:41 | MRI ---
FBrain MRI without contrast: 06/18/2018 COMPARISON: None HISTORY: Facial droop and numbness TECHNIQUE: Multiplanar multisequence MR imaging of the brain obtained without contrast FINDINGS: The cerebellar tonsils extend approximately 7 mm below the axial level of the foramen magnu m suggesting mild Chiari I malformation. There is polypoid mucosal thickening involving the alveolar recess of the left maxillary sinus. Nonspecific right mastoid effusion. The diffusion weighted imaging demonstrates no evidence for acute infarction. The axial gradient echo imaging demonstrates no evidence for intracranial hemorrhage. No midline shift or mass effect. No ab normal white matter signal. Regional bone marrow signal intensity appears within normal limits. IMPRESSION: No evidence for acute infarction or intracranial hemorrhage. Incidental findings as detai led above.
--- NOTE | 2018-06-18 14:33 | EKG ---
Test Reason : STAT Blood Pressure : / mmHG Vent. Rate : 098 BPM Atrial Rate : 098 BPM P-R Int : 126 ms QRS Dur : 082 ms QT Int : 370 ms P-R-T Axes : 043 026 018 degrees QTc Int : 472 ms Normal sinus rhythm Normal ECG No previous ECGs available Confirmed by KAMERON ODONNELL, DR. John ([id number]) on 06/18/2018 2:32:56 PM Referred By: CHUCHO Confirmed By:DR. Alvaro MELO MD
--- NOTE | 2018-06-18 14:41 | PDOC.EVN ---
Event Note - Event Note Event Note: Performed through review of patient's clinic chart. Baseline 24 urine protein was 1500mg/24hr. Repeat from yesterday showed 225mg/24hr. A1c trended down from 10.7% to 6.2%. GBS negative. echo report obtained and was normal. Repeat labs from this morning show slight down trending in H&H and platelets. CMP unremarkable. Uric acid is 7.3 which is unchanged from last night. BPP/NST 10/ 10 today with normal growth and umbilical cord dopplers. MRI was negative except for an incidental Chiari 1 malformation noted. Discussed PMH and HPI in detail with patient and Dr. Ellison present. Stated her chronic migraines have become more frequent. No seizures since she was between age 9 and 11. Dx with DM2 and HTN at age 24 and has had intermittent care for these conditions as funding was available. 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 States she had a diabetic eye exam this . A&P: 1. Complex migraine vs cHTN with superimposed pre-eclampsia: continue ASA until delivery. Continue to monitor BP. Patient given specific instructions for when to call nursing staff. Nursing staff given specific parameters to contact residents. Instructed to document every BP and notify residents if 2 consecutive BP >160/100. Repeat CBC, CMP and uric acid in the morning. Discussed with patient and her sister potential clinical courses which include d /c home with close follow up vs hospitalization until delivery. They were both in agreement with either course. Will discuss case with neonatology in the event the child must be delivered early. Will start betamethasone injections today to promote lung maturity. 2. Type F DM2: Increased insulin dose to compensate for steroids. Will monitor closely. Q shift NSTs. SSI coverage provided. Metformin discontinued. CARMEN for eye exam sent today. 3. Sinus tachycardia: TTE ordered 4. Hx Seizure: monitor. has been seizure free for > 15 years.
[2018-06-18] MEDS: Betamet Acet/Betamet Na Ph 30 MG/5 ML VIAL IM SCH (14:49)
[2018-06-18] MEDS ORDERED: HumaLOG 300 UNITS/3 ML VIAL SC SCH ×2 (17:00→18:38)
[2018-06-18] MEDS: FLUoxetine HCl 20 MG CAP PO SCH (20:22)
[2018-06-18] MEDS: Ubidecarenone 50 MG CAP PO SCH (20:23)
[2018-06-18] MEDS: Magnesium Oxide 400 MG TAB PO SCH (20:24)
[2018-06-18] MEDS ORDERED: Insulin Glargine 80 UNITS in Pre-Filled Syringe 1 EACH SC SCH (21:00)
[2018-06-18] MEDS ORDERED: Insulin Glargine 40 UNITS in Pre-Filled Syringe 1 EACH SC SCH (21:00)
[2018-06-18] MEDS: Insulin Glargine 60 UNITS in Pre-Filled Syringe SC SCH (21:41)
--- NOTE | 2018-06-18 22:37 | PDOC.EVN ---
Event Note - Event Note Event Note: Evening-shift NST Contractions: absent Baseline rate: 140s Accelerations: present Variability: moderate Overall assessment: reactive tracing. Attending Note: Tracing reviewed. Reactive. Vishal
[2018-06-19 06:14] LABS: #Lymphocytes 2.2 thou/uL (1.20-3.40); #Monocytes 0.6 thou/uL (0.11-0.59); #Neutrophils 13.5 thou/uL (1.40-6.50); %Basophils 0.1 % (0.0-1.0); %Eosinophils 0.3 % (0.0-10.0); %Lymphocytes 13.4 % (21.0-51.0); %Monocytes 3.7 % (0.0-10.0); %Neutrophils 82.6 % (42.0-75.0); Hemoglobin 11.1 g/dL (12.0-16.0); Mean Corpuscular HGB CONC 32.4 g/dL (32.0-36.0); Mean Corpuscular Hemoglobin 25.6 pg (27.0-31.0); Mean Corpuscular Volume 78.9 fL (78.0-98.0); Mean Platelet Volume 7.3 fL (7.4-10.4); Platelet Count 260 thou/uL (130-400); RBC Distribution Width 13.4 % (11.5-14.5); Red Blood Cell (RBC) Count 4.34 mill/uL (4.20-5.40); White Blood Cell (WBC) Count 16.4 thou/uL (4.8-10.8)
[2018-06-19 06:36] LABS: ALT (SGPT) 36 U/L (8-55); AST (SGOT) 29 U/L (5-34); Albumin 3.2 g/dL (3.5-5.0); Alkaline Phosphatase 69 U/L (40-150); Anion Gap 13 mmol/L (10-20); BUN (Urea Nitrogen) 8 mg/dL (7.0-18.7); Bilirubin, Total 0.3 mg/dL (0.2-1.2); Calc. Creatinine Clearance 289 mL/min (70-130); Calcium 9.2 mg/dL (7.8-10.44); Carbon Dioxide 22 mmol/L (22-29); Chloride 104 mmol/L (98-107); Estimated GFR-MDRD Greater than 90; Globulin 3.3 g/dL (2.4-3.5); Glucose 115 mg/dL (70-105); Potassium 3.8 mmol/L (3.5-5.1); Protein, Total 6.5 g/dL (6.0-8.3); Sodium 135 mmol/L (136-145); Uric Acid 7.8 mg/dL (2.6-6.0)
--- NOTE | 2018-06-19 06:49 | PDOC.OBAPN ---
FMR OB AP PN: Sub - Interval History Hospital Day: 3 Chief Complaint: migraine/L sided facial droop Indentification: 33 yo @ 29.5wks by 6.2wk US (EDC 08/29/18) Interval History: Patient doing well this AM, no complaints or concerns FMR OB AP PN: Obj - Maternal Vital signs: BP: 117/57 HR: 98-119 RR: 18-24 Tmax: 98.3 Pox: 98% on RA Wt: 130kg - Urine output I&O: 06/17/18 06/18/18 06/19/18 06:59 06:59 06:59 Intake Total 600 870 Output Total 150 700 Balance 450 170 FMR OB AP PN: Exam - Physical Exam General: NAD, awake, alert and oriented HEENT: normocephalic and atraumatic, PERRLA, EOMI, MMM, grossly normal vision, grossly normal hearing Neck: supple, FROM Chest: non-tender to palpation, no lesions Heart: RRR, normal S1/S2, no murmurs/rubs/gallops, pulses present General: CTAB, no respiratory distress, good air movement, no wheezing, no retractions Abdomen: soft, non-tender, bowel sound present Musculoskeletal: FROM in all four extremities Neurological: no focal deficit Skin: no rash, good tugor, capillary refill <2 seconds Psychiatric: intact recent and remote memory, good judgement and insight, normal mood and affect FMR OB AP PN: Data - Labs Lab results: Laboratory Results - last 24 hr 06/17/18 06/18/18 06/18/18 23:18 10:33 10:33 WBC 11.6 H RBC 4.11 L Hgb 10.5 L Hct 32.1 L MCV 78.0 MCH 25.5 L MCHC 32.7 RDW 13.5 Plt Count 220 MPV 6.8 L Neutrophils % 70.4 Lymphocytes % 22.2 Monocytes % 5.6 Eosinophils % 1.8 Basophils % 0.0 Neutrophils # 8.1 H Lymphocytes # 2.6 Monocytes # 0.7 H Eosinophils # 0.2 Basophils # 0.0 Sodium 136 Potassium 3.8 Chloride 105 Carbon Dioxide 24 Anion Gap 11 BUN 8 Creatinine 0.55 L Estimated GFR (MDRD) Greater than 90 Glucose 94 POC Glucose Uric Acid 7.3 H 7.3 H Calcium 9.1 Total Bilirubin 0.2 AST 21 ALT 27 Alkaline Phosphatase 61 Serum Total Protein 5.9 L Albumin 2.9 L Globulin 3.0 Albumin/Globulin Ratio 1.0 L 06/18/18 06/18/18 06/18/18 12:33 16:03 21:08 WBC RBC Hgb Hct MCV MCH MCHC RDW Plt Count MPV Neutrophils % Lymphocytes % Monocytes % Eosinophils % Basophils % Neutrophils # Lymphocytes # Monocytes # Eosinophils # Basophils # Sodium Potassium Chloride Carbon Dioxide Anion Gap BUN Creatinine Estimated GFR (MDRD) Glucose POC Glucose 101 103 164 H Uric Acid Calcium Total Bilirubin AST ALT Alkaline Phosphatase Serum Total Protein Albumin Globulin Albumin/Globulin Ratio 06/19/18 06/19/18 06/19/18 02:47 05:52 05:52 WBC 16.4 H RBC 4.34 Hgb 11.1 L Hct 34.2 L MCV 78.9 MCH 25.6 L MCHC 32.4 RDW 13.4 Plt Count 260 MPV 7.3 L Neutrophils % 82.6 H Lymphocytes % 13.4 L Monocytes % 3.7 Eosinophils % 0.3 Basophils % 0.1 Neutrophils # 13.5 H Lymphocytes # 2.2 Monocytes # 0.6 H Eosinophils # 0.0 Basophils # 0.0 Sodium 135 L Potassium 3.8 Chloride 104 Carbon Dioxide 22 Anion Gap 13 BUN 8 Creatinine 0.58 L Estimated GFR (MDRD) Greater than 90 Glucose 115 H POC Glucose 113 H Uric Acid 7.8 H Calcium 9.2 Total Bilirubin 0.3 AST 29 ALT 36 Alkaline Phosphatase 69 Serum Total Protein 6.5 Albumin 3.2 L Globulin 3.3 Albumin/Globulin Ratio 1.0 L FMR OB AP PN: A/P - Problem List (1) Diabetes Current Visit: Yes Status: Acute Code(s): E11.9 - TYPE 2 DIABETES MELLITUS WITHOUT COMPLICATIONS (2) Migraine Current Visit: Yes Status: Acute Code(s): G43.909 - MIGRAINE, UNSP, NOT INTRACTABLE, WITHOUT STATUS MIGRAINOSUS (3) Intrauterine normal Current Visit: No Status: Acute Code(s): Z34.90 - ENCNTR FOR SUPRVSN OF NORMAL , UNSP, UNSP TRIMESTER (4) Hypertension Current Visit: No Status: Chronic Code(s): I10 - ESSENTIAL (PRIMARY) HYPERTENSION Qualifiers: Hypertension type: essential hypertension Qualified Code(s): I10 - Essential (primary) hypertension (5) IDDM (insulin dependent diabetes mellitus) Current Visit: No Status: Chronic Code(s): E11.9 - TYPE 2 DIABETES MELLITUS WITHOUT COMPLICATIONS; 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 - Continue to monitor BP. Patient given specific instructions for when to call nursing staff. Nursing staff given specific parameters to contact residents. Instructed to document every BP and notify residents if 2 consecutive BP >160/ 100. - MRI: Chiari [address] and CTA wnl - Repeat CBC, CMP and uric acid in the morning. - Discussed with patient and her sister potential clinical courses which include d/c home with close follow up vs hospitalization until delivery. They were both in agreement with either course. - Will discuss case with neonatology in the event the child must be delivered early. NICU is full at the current time. - Will start betamethasone injections today to promote lung maturity. Type F DM2: - Increased insulin dose to compensate for steroids. Will monitor closely. - Q shift NSTs. - SSI coverage provided. Metformin discontinued. A1C 6.2%. - [facility] for eye exam sent today. Sinus tachycardia: - Echo: LVEF: 55-60%, trace MR/TR Hx Seizure: - monitor. has been seizure free for > 15 years. IUP, complicated by above factors: - US: BPP 8/8. FHT 140-152, JAY 10.3. Biometry: BPD 7.8 cm, HC 29.26cm, AC: 26.23, Femur length 5.25cm. EFW 1465gm. Case discussed with Dr. Ellison Discussion: Date/Time: 06/19/18 0647 This H&P was discussed with [] and [] who agree with the above documentation and plan. Addendum - Attending - Attending Attestation Date/Time: 06/19/18 1120 I personally evaluated the patient and discussed the management with Dr. Beltran I agree with the History, Examination, Assessment and Plan documented above with any addition or exceptions noted below. 33 yo female at 29.6 wks by 6.2 wk sono here for evaluation of elevated blood pressure and brief left sided facial droop HD#2 HERRERA: 08/29/18 Patient doing well. No episodes of visual changes, abdominal pain, CP, palpitations, SOB, edema, or headaches. Denies VB, LOF, ctx. +FM. VS reviewed. Labs reviewed. NAD. RRR. No murmurs. CTAB. No wheezing. Gravid. Nontender. BS present. Trace edema 1. cHTN with likely superimposed preeclampsia: Majority of BP normotensive yesterday. Reviewed blood pressures with nursing staff, all blood pressures were documented. On review from admission, several severe range blood pressures were not documented. Instead staff waited and repositioned patient and collected a repeat BP and documented the repeat only. At this time there is still concern for superimposed preeclampsia instead of worsening cHTN. Will continue to monitor closely as inpatient due to severe maternal and risk. 2nd and last steroid dose to be given today. Patient has a 5x higher risk for superimposed early preeclampsia due to her underlying conditions. AST up trended but still WNL. PLT up trended due to steroids. Uric acid continues to trend up as well. 24 hour protein = 1500 mg (01/12/18) --> 225 mg (06/17/18) Cr = 0.52 --> 0.45 --> 0.59 --> 0.55 --> 0.58 AST = 17 --> 19 --> 22 --> 21 --> 29 PLT = 285 --> 299 --> 282 --> 220 --> 260 (steroids) Uric acid = 7.3 --> 7.3 --> 7.8 29.5 wks EFW = 1465g (42%) JAY = 10.3 cm BPP = 8/8 S/D ratio = 1.89 FLM steroids -- 06/18/18, 06/19/18 Will repeat labs on Thursday morning or if symptoms arise. Repeat growth at 34 wks. BPP q week. NST BID. 2. Class F, pregestational DM: Has been seen by [facility] for level II sono and ECHO. Reports reviewed. Grossly normal. However, patient has not been following up as directed. Patient currently on Lantus and Lispro. Will continue and adjust as needed for fasting goal of < 95 and 2 hours pp < 120. Continue carb controlled diet with 3 regular meals and 2 snacks. Adjustments made based on steroid dosing. A1c = 10.7% (01/12/18) --> 6.2% (06/16/18) 3. BMI 47: Patient with metabolic syndrome and PCOS. Unsure total weight gain in at this time. Continue daily weights. TSH (3.050 --> 0.948) WNL. Encourage breast feeding. 4. Migraine with aura: Patient with longstanding history of migraine headaches. Notes an increase in frequency over the past 2 wks. Yesterday possible complex migraine due to facial parasthesia. CT/CTA negative. 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 Started on ppx -- mag/coQ10 5. Rule out TIA: see #4. ECHO reviewed. No structural abnormalities. 6. hx of childhood seizure disorder: Last seizure age 9. Initial seizure at age 5. Was on Tegretol up to age 11. Level II sono grossly normal. 7. MDD: On SSRI. Watch for progression due to new diagnosis. 8. Childhood asthma: Resolved. 9. Family hx: CVA, CHD, HTN, DM, Thyroid dz, lung cancer, colon cancer 10. Chronic Sinus Tachycardia?: Patient reports a longstanding diagnosis but chart view does not support. Appears episodic at best. Continue to monitor. No arrhythmia on EKG. ECHO WNL. 11. sIUP: IOB labs reviewed. No NIPT. Anatomy reviewed. Flu 01/2018. Tdap 2018. 3T negative. GBS negative (06/16/18) Dispo: Will continue to monitor inpatient closely. To receive second dose of steroid today. Monitor BP, symptoms, and glucose very closely. Vishal
[2018-06-19] MEDS ORDERED: HumaLOG 300 UNITS/3 ML VIAL SC SCH (07:30)
[2018-06-19] MEDS: Ubidecarenone 50 MG CAP PO SCH ×3 (08:55→22:58)
[2018-06-19] MEDS: Magnesium Oxide 400 MG TAB PO SCH ×2 (08:55→23:51)
[2018-06-19] MEDS: Prenatal Vitamin 1 TAB PO SCH (08:55)
[2018-06-19] MEDS: Aspirin 81 mg Enteric Coated Tablet PO SCH (08:55)
[2018-06-19] MEDS: pyridOXINE 50 MG (B6) TAB PO SCH (08:55)
[2018-06-19] MEDS: Famotidine 20 MG TAB PO SCH (08:55)
[2018-06-19] MEDS: HumaLOG 300 UNITS/3 ML VIAL SC SCH ×3 (08:57→19:27)
[2018-06-19] MEDS ORDERED: Ubidecarenone 50 MG CAP PO SCH (09:00)
--- NOTE | 2018-06-19 10:08 | PDOC.EVN ---
Event Note - Event Note Event Note: 06/19/18 Morning-shift NST Contractions: absent Baseline rate: 140s Accelerations: present Decels: absent Variability: moderate Overall assessment: reactive tracing. Attending Note: Reactive tracing. Vishal
[2018-06-19] MEDS: Betamet Acet/Betamet Na Ph 30 MG/5 ML VIAL IM SCH (14:15)
--- NOTE | 2018-06-19 22:04 | PDOC.EVN ---
Event Note - Event Note Event Note: 06/19/18 Evening-shift NST 1st NST Contractions: absent Baseline rate: 145 Accelerations: present Decels: 1 present Variability: moderate 2nd/Repeat NST Contractions: absent Baseline rate: 150 Accelerations: present Decels: absent Variability: moderate Overall assessment: Reactive tracing.
[2018-06-19] MEDS ORDERED: Insulin Glargine 65 UNITS in Pre-Filled Syringe 1 EACH SC SCH (22:30)
[2018-06-19] MEDS: FLUoxetine HCl 20 MG CAP PO SCH (22:58)
[2018-06-19] MEDS: Melatonin 3 MG TAB PO PRN (23:51)
[2018-06-20] MEDS: Insulin Glargine 60 UNITS in Pre-Filled Syringe SC SCH (00:38)
--- NOTE | 2018-06-20 07:00 | PDOC.OBAPN ---
FMR OB AP PN: Sub - Interval History Hospital Day: 4 Chief Complaint: migraine/facial droop/vision changes Indentification: 33 yo @ 29.7wks by 6.2wk US (EDC 08/29/18) Interval History: Doing well, resting comfortably. No concerns FMR OB AP PN: Obj - Maternal Vital signs: BP: 105-135/52-67 HR: 92-102 RR: 16-18 Tmax: 97.8 Pox: 98% on RA Wt: 130kg - Urine output I&O: 06/18/18 06/19/18 06/20/18 06:59 06:59 06:59 Intake Total 365 291 8571 Output Total 150 700 Balance 881 748 6931 FMR OB AP PN: Exam - Physical Exam General: NAD, awake, alert and oriented HEENT: normocephalic and atraumatic, PERRLA, EOMI, MMM, grossly normal vision, grossly normal hearing Neck: supple, FROM Chest: non-tender to palpation, no lesions Heart: RRR, normal S1/S2, no murmurs/rubs/gallops, pulses present, no edema General: CTAB, no respiratory distress, good air movement, no rales/rhonchi, no wheezing, no retractions Abdomen: soft, non-tender, bowel sound present Deviation from normal: obese abdomen Musculoskeletal: FROM in all four extremities Neurological: no focal deficit Skin: no rash, good tugor, capillary refill <2 seconds, no jaundice Lymphatic: no unusual bruising or bleeding, no purpura, no petechia Psychiatric: intact recent and remote memory, good judgement and insight, normal mood and affect FMR OB AP PN: Data - Labs Lab results: Laboratory Results - last 24 hr 06/19/18 06/19/18 06/19/18 08:07 10:05 11:18 POC Glucose 113 H 126 H 92 06/19/18 06/19/18 06/19/18 12:38 14:21 15:27 POC Glucose 80 139 H 119 H 06/19/18 06/19/18 18:44 21:41 POC Glucose 194 H 162 H FMR OB AP PN: A/P - Problem List (1) Diabetes Current Visit: Yes Status: Acute Code(s): E11.9 - TYPE 2 DIABETES MELLITUS WITHOUT COMPLICATIONS (2) Migraine Current Visit: Yes Status: Acute Code(s): G43.909 - MIGRAINE, UNSP, NOT INTRACTABLE, WITHOUT STATUS MIGRAINOSUS (3) Intrauterine normal Current Visit: No Status: Acute Code(s): Z34.90 - ENCNTR FOR SUPRVSN OF NORMAL , UNSP, UNSP TRIMESTER (4) Hypertension Current Visit: No Status: Chronic Code(s): I10 - ESSENTIAL (PRIMARY) HYPERTENSION Qualifiers: Hypertension type: essential hypertension Qualified Code(s): I10 - Essential (primary) hypertension (5) IDDM (insulin dependent diabetes mellitus) Current Visit: No Status: Chronic Code(s): E11.9 - TYPE 2 DIABETES MELLITUS WITHOUT COMPLICATIONS; Z79.4 - CUSTODIAL (CURRENT) USE OF INSULIN Disposition: Complex migraine vs cHTN with superimposed pre-eclampsia: - continue ASA until delivery. - Continue to monitor BP. Patient given specific instructions for when to call nursing staff. Nursing staff given specific parameters to contact residents. Instructed to document every BP and notify residents if 2 consecutive BP >160/ 100. - MRI: Chiari [address] and CTA wnl - Repeat CBC, CMP and uric acid AM series to trend - elevated transaminases on - Discussed with patient and her sister potential clinical courses which include d/c home with close follow up vs hospitalization until delivery. They were both in agreement with either course. - Will discuss case with neonatology in the event the child must be delivered early. NICU is full at the current time. - Pt received 2 betamethasone injections to promote lung maturity. Type F DM2: - Increased insulin dose to compensate for steroids. Will monitor closely. Will make adjustments as needed. - Q shift NSTs. Pt had variable decel on evening 4/6 NST, repeat NST no decel present. - SSI coverage provided. Metformin discontinued. A1C 6.2%. - [facility] for eye exam sent today. Sinus tachycardia: - Echo: LVEF: 55-60%, trace MR/TR Hx Seizure: - monitor. has been seizure free for > 15 years. IUP, complicated by above factors: - US: BPP 10/21. FHT 140-152, JAY 10.3. Biometry: BPD 7.8 cm, HC 29.26cm, AC: 26.23, Femur length 5.25cm. EFW 1465gm. Case discussed with Dr. Ellison Discussion: Date/Time: 06/20/18 0625 This H&P was discussed with [] and [] who agree with the above documentation and plan. Addendum - Attending - Attending Attestation Date/Time: 06/20/18 0930 I personally evaluated the patient and discussed the management with Dr. Beltran I agree with the History, Examination, Assessment and Plan documented above with any addition or exceptions noted below. 33 yo female at 30.0 wks by 6.2 wk sono here for evaluation of elevated blood pressure and brief left sided facial droop HD#3 HERRERA: 08/29/18 Patient doing well. No episodes of visual changes, abdominal pain, CP, palpitations, SOB, edema, or headaches. Denies VB, LOF, ctx. +FM. VS reviewed. Labs reviewed. NAD. RRR. No murmurs. CTAB. No wheezing. Gravid. Nontender. BS present. Trace edema 1. cHTN with likely superimposed preeclampsia: Again BP normotensive to mild range. At time of admission several severe range blood pressures. Some not documented by staff. Addressed and now documenting all blood pressure readings. Still concern for superimposed preeclampsia instead of worsening cHTN (due to increase frequency of migraines, elevations in blood pressure, intermittent visual changes, labs abnormalities). Will continue to monitor closely as inpatient due to severe maternal and risk. Patient has a 5x higher risk for superimposed early preeclampsia due to her underlying conditions. AST continues to up trend along with uric acid. 24 hour protein = 1500 mg (01/12/18) --> 225 mg (06/17/18) Cr = 0.52 --> 0.45 --> 0.59 --> 0.55 --> 0.58 --> 0.6 AST = 17 (12/2017) --> 19 (01/2018) --> 22 --> 21 --> 29 --> 45 PLT = 285 --> 299 --> 282 --> 220 --> 260 (steroids) --> 258 (steroids) Uric acid = 7.3 --> 7.3 --> 7.8 --> 7.7 29.5 wks EFW = 1465g (42%) JAY = 10.3 cm BPP = 8/8 S/D ratio = 1.89 FLM steroids -- 06/18/18, 06/19/18 Will repeat labs on Thursday morning or if symptoms arise. Repeat growth at 34 wks. BPP q week. NST BID. 2. Class F, pregestational DM: Has been seen by [facility] for level II sono and ECHO. Reports reviewed. Grossly normal. However, patient has not been following up as directed. Patient currently on Lantus and Lispro. Will continue and adjust as needed for fasting goal of < 95 and 2 hours pp < 120. Continue carb controlled diet with 3 regular meals and 2 snacks. Adjustments made based on steroid dosing. A1c = 10.7% (01/12/18) --> 6.2% (06/16/18) 3. BMI 47: Patient with metabolic syndrome and PCOS. Unsure total weight gain in at this time. Continue daily weights. TSH (3.050 --> 0.948) WNL. Encourage breast feeding. 4. Migraine with aura: Patient with longstanding history of migraine headaches. Notes an increase in frequency over the past 2 wks. Yesterday possible complex migraine due to facial parasthesia. CT/CTA negative. 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 Started on ppx -- mag/coQ10 5. Rule out TIA: see #4. ECHO reviewed. No structural abnormalities. Symptoms resolved in minutes. 6. hx of childhood seizure disorder: Last seizure age 9. Initial seizure at age 5. Was on Tegretol up to age 11. Level II sono grossly normal. 7. MDD: On SSRI. Watch for progression due to new diagnosis. 8. Childhood asthma: Resolved. 9. Family hx: CVA, CHD, HTN, DM, Thyroid dz, lung cancer, colon cancer 10. Chronic Sinus Tachycardia?: Patient reports a longstanding diagnosis but chart view does not support. Appears episodic at best. Continue to monitor. No arrhythmia on EKG. ECHO WNL. 11. sIUP: IOB labs reviewed. No NIPT. Anatomy reviewed. Flu 01/2018. Tdap 2018. 3T negative. GBS negative (06/16/18) Dispo: Will continue to monitor inpatient closely. Monitor BP, symptoms, and glucose very closely. Laborist to re-evaluate in AM. No indication for delivery at this time. Vishal
[2018-06-20 07:18] LABS: #Basophils 0.1 thou/uL (0.0-0.2); #Eosinphils 0.1 thou/uL (0.0-0.7); #Lymphocytes 2.5 thou/uL (1.20-3.40); #Monocytes 0.9 thou/uL (0.11-0.59); #Neutrophils 14.3 thou/uL (1.40-6.50); %Basophils 0.3 % (0.0-1.0); %Eosinophils 0.8 % (0.0-10.0); %Lymphocytes 14.1 % (21.0-51.0); %Monocytes 4.9 % (0.0-10.0); %Neutrophils 79.9 % (42.0-75.0); Hemoglobin 10.7 g/dL (12.0-16.0); Mean Corpuscular HGB CONC 31.8 g/dL (32.0-36.0); Mean Corpuscular Hemoglobin 25.5 pg (27.0-31.0); Mean Corpuscular Volume 80.2 fL (78.0-98.0); Mean Platelet Volume 7.2 fL (7.4-10.4); Platelet Count 258 thou/uL (130-400); RBC Distribution Width 13.6 % (11.5-14.5); Red Blood Cell (RBC) Count 4.19 mill/uL (4.20-5.40); White Blood Cell (WBC) Count 17.9 thou/uL (4.8-10.8)
[2018-06-20 07:32] LABS: ALT (SGPT) 67 U/L (8-55); AST (SGOT) 45 U/L (5-34); Albumin 3.2 g/dL (3.5-5.0); Alkaline Phosphatase 61 U/L (40-150); Anion Gap 12 mmol/L (10-20); BUN (Urea Nitrogen) 9 mg/dL (7.0-18.7); Bilirubin, Total 0.2 mg/dL (0.2-1.2); Calc. Creatinine Clearance 279 mL/min (70-130); Calcium 8.9 mg/dL (7.8-10.44); Carbon Dioxide 21 mmol/L (22-29); Chloride 106 mmol/L (98-107); Estimated GFR-MDRD Greater than 90; Globulin 3.2 g/dL (2.4-3.5); Glucose 133 mg/dL (70-105); Protein, Total 6.4 g/dL (6.0-8.3); Sodium 135 mmol/L (136-145); Uric Acid 7.7 mg/dL (2.6-6.0)
[2018-06-20] MEDS: HumaLOG 300 UNITS/3 ML VIAL SC SCH (08:09)
[2018-06-20] MEDS: Ubidecarenone 50 MG CAP PO SCH ×3 (08:09→21:43)
[2018-06-20] MEDS: Prenatal Vitamin 1 TAB PO SCH (08:10)
[2018-06-20] MEDS: pyridOXINE 50 MG (B6) TAB PO SCH (08:10)
[2018-06-20] MEDS: Famotidine 20 MG TAB PO SCH (08:10)
[2018-06-20] MEDS: Magnesium Oxide 400 MG TAB PO SCH ×2 (08:11→21:52)
[2018-06-20] MEDS: Aspirin 81 mg Enteric Coated Tablet PO SCH (08:11)
--- NOTE | 2018-06-20 09:32 | PDOC.EVN ---
Event Note - Event Note Event Note: 06/20/18 Morning-shift NST Contractions: absent Baseline rate: 145s Accelerations: present Decels: absent Variability: moderate Overall assessment: reactive tracing.
[2018-06-20] MEDS ORDERED: HumaLOG 300 UNITS/3 ML VIAL SC SCH ×3 (11:30→17:00)
[2018-06-20] MEDS: Insulin Regular 300 UNITS/3 ML VIAL SC PRN (15:49)
[2018-06-20] MEDS ORDERED: Insulin Glargine 65 UNITS in Pre-Filled Syringe 1 EACH SC SCH (21:00)
[2018-06-20] MEDS ORDERED: Insulin Glargine 60 UNITS in Pre-Filled Syringe 1 EACH SC SCH (21:00)
[2018-06-20] MEDS ORDERED: Insulin Glargine 68 UNITS in Pre-Filled Syringe 1 EACH SC SCH (21:00)
[2018-06-20] MEDS: FLUoxetine HCl 20 MG CAP PO SCH (21:45)
--- NOTE | 2018-06-20 23:56 | PDOC.EVN ---
Event Note - Event Note Event Note: Evening-shift NST Contractions: absent Baseline rate: 145 Accelerations: present Decels: absent Variability: moderate Overall assessment: reactive tracing. Maryam Cuellar MD
[2018-06-21] MEDS: Melatonin 3 MG TAB PO PRN ×2 (00:59→21:23)
[2018-06-21 05:57] LABS: Hemoglobin 10.4 g/dL (12.0-16.0); Platelet Count 240 thou/uL (130-400)
[2018-06-21 06:13] LABS: AST (SGOT) 38 U/L (5-34); Calc. Creatinine Clearance 284 mL/min (70-130); Estimated GFR-MDRD Greater than 90; Uric Acid 6.1 mg/dL (2.6-6.0)
--- NOTE | 2018-06-21 07:08 | PDOC.OBAPN ---
FMR OB AP PN: Sub - Interval History Hospital Day: 5 Chief Complaint: headache, vision changes, facial paresthesias Indentification: 33 yo @ 30 weeks, EDC 08/29/2018 Interval History: Doing well, currently asymptomatic FMR OB AP PN: Obj - Maternal Vital signs: BP: 110/56 HR: 89 RR: 20 Tmax: 97.6 Pox: 98% on RA Wt: 130Kg - Urine output I&O: 06/20/18 06/21/18 06/22/18 06:59 06:59 06:59 Intake Total 0 1500 Balance 2110 1500 - Heart Tones Baseline: 140 Variability: moderate Acceleration: present Deceleration: absent Bala contractions every: None FMR OB AP PN: Exam - Physical Exam General: NAD HEENT: normocephalic and atraumatic, PERRLA, EOMI, MMM, conjunctiva clear, grossly normal vision, grossly normal hearing Neck: trachea midline Heart: RRR, normal S1/S2, no murmurs/rubs/gallops, pulses present, other (trace edema) General: CTAB, no respiratory distress, good air movement, no rales/rhonchi, no wheezing, no retractions Abdomen: soft, gravid, fundus(cm) (above umbilicus), non-tender, bowel sound present Neurological: sensation to pain,touch and proprioception grossly normal, DTR +2 , no clonus, no focal deficit FMR OB AP PN: Data - Labs Lab results: Laboratory Results - last 24 hr 06/20/18 06/20/18 06/20/18 07:11 07:11 07:12 WBC 17.9 H RBC 4.19 L Hgb 10.7 L Hct 33.6 L MCV 80.2 MCH 25.5 L MCHC 31.8 L RDW 13.6 Plt Count 258 MPV 7.2 L Neutrophils % 79.9 H Lymphocytes % 14.1 L Monocytes % 4.9 Eosinophils % 0.8 Basophils % 0.3 Neutrophils # 14.3 H Lymphocytes # 2.5 Monocytes # 0.9 H Eosinophils # 0.1 Basophils # 0.1 Sodium 135 L Potassium 4.0 Chloride 106 Carbon Dioxide 21 L Anion Gap 12 BUN 9 Creatinine 0.60 Estimated GFR (MDRD) Greater than 90 Glucose 133 H POC Glucose 135 H Uric Acid 7.7 H Calcium 8.9 Total Bilirubin 0.2 AST 45 H ALT 67 H Alkaline Phosphatase 61 Serum Total Protein 6.4 Albumin 3.2 L Globulin 3.2 Albumin/Globulin Ratio 1.0 L 06/20/18 06/20/18 06/20/18 10:18 15:20 21:44 WBC RBC Hgb Hct MCV MCH MCHC RDW Plt Count MPV Neutrophils % Lymphocytes % Monocytes % Eosinophils % Basophils % Neutrophils # Lymphocytes # Monocytes # Eosinophils # Basophils # Sodium Potassium Chloride Carbon Dioxide Anion Gap BUN Creatinine Estimated GFR (MDRD) Glucose POC Glucose 96 167 H 129 H Uric Acid Calcium Total Bilirubin AST ALT Alkaline Phosphatase Serum Total Protein Albumin Globulin Albumin/Globulin Ratio 06/21/18 06/21/18 06/21/18 05:40 05:40 06:36 WBC RBC Hgb 10.4 L Hct 31.9 L MCV MCH MCHC RDW Plt Count 240 MPV Neutrophils % Lymphocytes % Monocytes % Eosinophils % Basophils % Neutrophils # Lymphocytes # Monocytes # Eosinophils # Basophils # Sodium Potassium Chloride Carbon Dioxide Anion Gap BUN Creatinine 0.59 L Estimated GFR (MDRD) Greater than 90 Glucose POC Glucose 129 H Uric Acid 6.1 H Calcium Total Bilirubin AST 38 H ALT Alkaline Phosphatase Serum Total Protein Albumin Globulin Albumin/Globulin Ratio FMR OB AP PN: A/P - Problem List (1) Chronic hypertension with superimposed pre-eclampsia Current Visit: Yes Status: Acute Code(s): O11.9 - PRE-EXISTING HYPERTENSION WITH PRE-ECLAMPSIA, UNSP TRIMESTER (2) Hypertension Current Visit: No Status: Chronic Code(s): I10 - ESSENTIAL (PRIMARY) HYPERTENSION Qualifiers: Hypertension type: essential hypertension Qualified Code(s): I10 - Essential (primary) hypertension (3) Type 2 diabetes mellitus affecting in first trimester, antepartum Current Visit: No Status: Chronic Code(s): O24.111 - PRE-EXISTING TYPE 2 DIABETES, IN , FIRST TRIMESTER Disposition: Stable, LFTs and uric acid have down trended, pt continues to have episodic HTN episodes with some >160/110; however, repeat BP check after elevated readings decreased. Discussion: Date/Time: 06/21/18 0708 1. cHTN with likely superimposed preeclampsia: Again BP normotensive to mild range. Pt does continue to have episodic elevated blood pressures highest 174/ 72 and repeat BP shirtly after 114/60. Pt had elevated LFTs however this continue to down trend. Platelets remain stable. 24 hour protein = 1500 mg (01/12/18) --> 225 mg (06/17/18) Cr = 0.52 --> 0.45 --> 0.59 --> 0.55 --> 0.58 --> 0.6-->.59 AST = 17 (12/2017) --> 19 (01/2018) --> 22 --> 21 --> 29 --> 45-->38 PLT = 285 --> 299 --> 282 --> 220 --> 260 (steroids) --> 258 (steroids)-->240 Uric acid = 7.3 --> 7.3 --> 7.8 --> 7.7-->6.1 29.5 wks EFW = 1465g (42%) JAY = 10.3 cm BPP = 8/8 S/D ratio = 1.89 FLM steroids -- 06/18/18, 06/19/18 Repeat labs show down trending uric acid and LFTs. Platelets and cr stable. 2. Class F, pregestational DM: Has been seen by [facility] for level II sono and ECHO. Reports reviewed. Grossly normal. However, patient has not been following up as directed. Patient currently on Lantus and Lispro. Will continue and adjust as needed for fasting goal of < 95 and 2 hours pp < 120. Continue carb controlled diet with 3 regular meals and 2 snacks. Lantus increased to 74U QHS and meal time insulin increased to 35U AC A1c = 10.7% (01/12/18) --> 6.2% (06/16/18) 3. BMI 47: Patient with metabolic syndrome and PCOS. Unsure total weight gain in at this time. Continue daily weights. 4. sIUP: IOB labs reviewed. No NIPT. Anatomy reviewed. Flu 01/2018. Tdap 2018. 3T negative. GBS negative (06/16/18) Dispo: Will continue to monitor inpatient closely. Monitor BP, symptoms, and glucose very closely. Will continue to adjust insulin PRN for glycemic control. Continue to monitor blood pressures. Cont testing w/ daily NST. This H&P was discussed with [] and [] who agree with the above documentation and plan. Addendum - Attending - Attending Attestation Date/Time: 06/21/18 8317 I personally evaluated the patient and discussed the management with Dr. Hernandez I agree with the History, Examination, Assessment and Plan documented above with any addition or exceptions noted below. 33 yo female at 30.1 wks by 6.2 wk sono here for evaluation of elevated blood pressure and brief left sided facial droop HD#4 HERRERA: 08/29/18 Patient doing well. No episodes of visual changes, abdominal pain, CP, palpitations, SOB, edema, or headaches. Denies VB, LOF, ctx. +FM. 1. cHTN, rule out superimposed preeclampsia: Again BP normotensive to mild range. Only one single BP elevation in severe range but one minute later was normotensive again. Concern for superimposed preeclampsia vs worsening cHTN given lab abnormalities. Labs today appear to have improved. Uric acid is now 6.1 and AST is 38. Will continue to monitor closely as inpatient due to severe maternal and risk. S/P steroids 06/18/18, 06/19/18 24 hour protein = 1500 mg (01/12/18) --> 225 mg (06/17/18) Cr = 0.52 --> 0.45 --> 0.59 --> 0.55 --> 0.58 --> 0.6-->0.59 AST = 17 (12/2017) --> 19 (01/2018) --> 22 --> 21 --> 29 --> 45-->38 PLT = 285 --> 299 --> 282 --> 220 --> 260 (steroids) --> 258 (steroids)--> 240 Uric acid = 7.3 --> 7.3 --> 7.8 --> 7.7-->6.1 2. Class F, pregestational DM: Currently on Lantus and Lispro. Will continue and adjust as needed for fasting goal of < 95 and 2 hours pp < 120. Continue carb controlled diet with 3 regular meals and 2 snacks. Adjustments made based on steroid dosing. A1c = 10.7% (01/12/18) --> 6.2% (06/16/18) 3. BMI 47: 4. Migraine with aura: Patient with longstanding history of migraine headaches. Notes an increase in frequency over the past 2 wks. Presentation possible complex migraine due to facial parasthesia. CT/CTA negative. 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 Started on ppx -- mag/coQ10 5. Rule out TIA: see #4. ECHO reviewed. No structural abnormalities. Symptoms resolved quickly and have not returned. Dispo: Will continue to monitor inpatient closely. Monitor BP, symptoms, and glucose very closely. Requested LABORATORY TECHNOLOGIST hospitalist reevaluate patient. Appreciate recommendations.
[2018-06-21] MEDS ORDERED: HumaLOG 300 UNITS/3 ML VIAL SC SCH (07:30)
[2018-06-21] MEDS ORDERED: PRE FILLED SC SCH (08:17)
[2018-06-21] MEDS ORDERED: INSULIN GLARGINE SC SCH (08:17)
[2018-06-21] MEDS: pyridOXINE 50 MG (B6) TAB PO SCH (09:03)
[2018-06-21] MEDS: Ubidecarenone 50 MG CAP PO SCH ×3 (09:03→21:53)
[2018-06-21] MEDS: Magnesium Oxide 400 MG TAB PO SCH ×2 (09:03→21:23)
[2018-06-21] MEDS: Famotidine 20 MG TAB PO SCH (09:03)
[2018-06-21] MEDS: HumaLOG 300 UNITS/3 ML VIAL SC SCH ×4 (09:04→18:52)
[2018-06-21] MEDS: Aspirin 81 mg Enteric Coated Tablet PO SCH (09:04)
[2018-06-21] MEDS: Prenatal Vitamin 1 TAB PO SCH (09:04)
--- NOTE | 2018-06-21 12:47 | PDOC.EVN ---
Event Note - Event Note Event Note: NST reviewed. baseline 140s positive accels, no late or variable decelerations. Reactive NST.
[2018-06-21] MEDS: Insulin Regular 300 UNITS/3 ML VIAL SC PRN (16:30)
[2018-06-21] MEDS ORDERED: Insulin Glargine 70 UNITS in Pre-Filled Syringe SC SCH (21:00)
[2018-06-21] MEDS: FLUoxetine HCl 20 MG CAP PO SCH (21:21)
--- NOTE | 2018-06-21 22:19 | PDOC.EVN ---
Event Note - Event Note Event Note: 06/21/18 Evening-shift NST Contractions: absent Baseline rate: 145 Accelerations: present Decels: absent Variability: moderate Overall assessment: reactive tracing. Maryam Cuellar MD
--- NOTE | 2018-06-22 05:02 | CON ---
DATE OF CONSULTATION: 06/21/2018 REFERRING PHYSICIAN: Dr. Godfrey. HISTORY OF PRESENT ILLNESS: The patient is a 33-year-old female, G1, P0, with a past medical history of chronic hypertension, type 2 diabetes, and migraines, who was admitted to the hospital for concerns of exacerbation of chronic hypertension and possible superimposed preeclampsia. However, after initial evaluation, the patient was noted to actually have decreased proteinuria from baseline and improvement in her overall blood pressure average. I have been asked to re- evaluate and give recommendations. The patient denies any headache, chest pain, shortness of breath, any abdominal pain, any overall illness. She reports that she has been having fairly decent blood sugar control until she was given steroid administration since her blood sugars have been little bit increased with postprandials in the 140s and fastings in the 120s. The patient is interested in being discharged home if possible. Her blood pressures on review have remained in the last 24-48 hours in the one teens to 120s. She has had only two isolated severe range pressures since admission on 06/18/2018 and on further review, one appears spurious with blood pressure one minute after 114/60 and 166 shortly after admission. The patient' s lab work has been within normal limits apart from baseline proteinuria which again appears to be improved from her initial evaluation early in the . Baseline proteinuria on January 12, 2018 was 1500 mg; on 06/17/2018, it was 225 mg. BPP has been 8/8. JAY is normal at 10 cm. ASSESSMENT AND PLAN: This is a 33-year-old female with chronic hypertension and type 2 diabetes. It is unclear after long-term evaluation if the patient has any significant progression in her chronic hypertension with rest. Things appear to have improved dramatically right since admission. We have recommended that the patient if she is discharged home, that she discontinue work, which the patient has agreed to do. We also recommend twice weekly visits for the near future for close evaluation with weekly lab work if blood pressure began to rise again and twice weekly nst. Delivery in 37th week or sooner if severe features develop. Job ID: [id number] MTDD
[2018-06-22] MEDS: HumaLOG 300 UNITS/3 ML VIAL SC SCH ×2 (08:12→13:22)
[2018-06-22] MEDS: Prenatal Vitamin 1 TAB PO SCH (08:13)
[2018-06-22] MEDS: Famotidine 20 MG TAB PO SCH (08:13)
[2018-06-22] MEDS: Aspirin 81 mg Enteric Coated Tablet PO SCH (08:22)
[2018-06-22] MEDS: pyridOXINE 50 MG (B6) TAB PO SCH (08:23)
[2018-06-22] MEDS: Magnesium Oxide 400 MG TAB PO SCH (08:23)
[2018-06-22] MEDS: Ubidecarenone 50 MG CAP PO SCH (08:23)
--- NOTE | 2018-06-22 09:04 | PDOC.OBAPN ---
FMR OB AP PN: Sub - Interval History Hospital Day: 5 Chief Complaint: HTN, headache Indentification: 33 yo class f daibetic w/ chronic htn hospital day 6 Interval History: Pt doing well and no episodes of elevated BP w/in last 24 hours. BS stable. FMR OB AP PN: Obj - Maternal Vital signs: BP: 119/66 HR: 91 RR: 20 Tmax: 97.7 Pox: 99% on RA - Urine output I&O: 06/21/18 06/22/18 06/23/18 06:59 06:59 06:59 Intake Total 1999 2199 Balance 1999 2199 FMR OB AP PN: Exam - Physical Exam General: NAD, awake, alert and oriented HEENT: normocephalic and atraumatic, PERRLA, EOMI, MMM, conjunctiva clear Neck: trachea midline Heart: RRR, normal S1/S2, no murmurs/rubs/gallops General: CTAB, no respiratory distress, good air movement, no rales/rhonchi, no wheezing, no retractions Abdomen: soft, gravid, fundus(cm), non-tender, bowel sound present Musculoskeletal: FROM in all four extremities Neurological: no focal deficit FMR OB AP PN: Data - Labs Lab results: Laboratory Results - last 24 hr 06/21/18 06/21/18 06/21/18 11:13 16:14 21:21 POC Glucose 78 150 H 77 06/22/18 06:02 POC Glucose 83 FMR OB AP PN: A/P - Problem List (1) Chronic hypertension with superimposed pre-eclampsia Current Visit: Yes Status: Ruled-out Code(s): O11.9 - PRE-EXISTING HYPERTENSION WITH PRE-ECLAMPSIA, UNSP TRIMESTER (2) Hypertension Current Visit: No Status: Chronic Code(s): I10 - ESSENTIAL (PRIMARY) HYPERTENSION Qualifiers: Hypertension type: essential hypertension Qualified Code(s): I10 - Essential (primary) hypertension (3) Type 2 diabetes mellitus affecting in first trimester, antepartum Current Visit: No Status: Chronic Code(s): O24.111 - PRE-EXISTING TYPE 2 DIABETES, IN , FIRST TRIMESTER Disposition: Sable, plan for DC to home today. Discussion: Date/Time: 06/22/18 0904 1. cHTN with superimposed preeclampsia:ruled out Pt had elevated LFTs however this continue to down trend. Platelets remain stable. 24 hour protein = 1500 mg (01/12/18) --> 225 mg (06/17/18) Cr = 0.52 --> 0.45 --> 0.59 --> 0.55 --> 0.58 --> 0.6-->.59 AST = 17 (12/2017) --> 19 (01/2018) --> 22 --> 21 --> 29 --> 45-->38 PLT = 285 --> 299 --> 282 --> 220 --> 260 (steroids) --> 258 (steroids)-->240 Uric acid = 7.3 --> 7.3 --> 7.8 --> 7.7-->6.1 29.5 wks EFW = 1465g (42%) JAY = 10.3 cm BPP = 8/8 S/D ratio = 1.89 FLM steroids -- 06/18/18, 06/19/18 Repeat labs show down trending uric acid and LFTs. Platelets and cr stable. Will plan for DC to home today with return precautions and instruction to return to clinic twice weekly. 2. Class F, pregestational DM: Has been seen by [facility] for level II sono and ECHO. Reports reviewed. Grossly normal. However, patient has not been following up as directed. Patient currently on Lantus and Lispro. Will continue and adjust as needed for fasting goal of < 95 and 2 hours pp < 120. Continue carb controlled diet with 3 regular meals and 2 snacks. A1c = 10.7% (01/12/18) --> 6.2% (06/16/18) Lantus increased to 70, will decrease to 60U nightly and pt to resume premeal insulin prior to hospitalization @ 21U. 3. BMI 47: Patient with metabolic syndrome and PCOS. Unsure total weight gain in at this time. Continue daily weights. - Monitor OP, stable for DC to home 4. sIUP: IOB labs reviewed. No NIPT. Anatomy reviewed. Flu 01/2018. Tdap 2018. 3T negative. GBS negative (06/16/18) Dispo: Stable and ok for discahrge to home with instruction to f/u twice weekly until planned delivery @ 37 weeks. Return precautions discussed. F/U scheduled with Dr Vargas on 06/24/2018 This H&P was discussed with [] and [] who agree with the above documentation and plan. Addendum - Attending - Attending Attestation Date/Time: 06/22/18 1313 I personally evaluated the patient and discussed the management with Dr. Bacon I agree with the History, Examination, Assessment and Plan documented above with any addition or exceptions noted below. 33 yo female at 30.2 wks by 6.2 wk sono here for evaluation of elevated blood pressure and brief left sided facial droop HD#5 HERRERA: 08/29/18 Patient doing well. No episodes of visual changes, abdominal pain, CP, palpitations, SOB, edema, or headaches. Denies VB, LOF, ctx. +FM. 1. cHTN. Unlikely with superimposed preeclampsia at this time. BP normotensive x last 24hrs. Labs stable last check. Pt seen by Dr Salgado yesterday who felt she was stable for d/c to home with close outpatient followup. S/P steroids 06/18/18, 06/19/18 2. Class F, pregestational DM: Currently on Lantus and Lispro. Will continue and adjust as needed for fasting goal of < 95 and 2 hours pp < 120. Continue carb controlled diet with 3 regular meals and 2 snacks. Resume same mealtime dosing at discharge and increase lantus to 60 units qHS. She will likely need to decrease insulin further once steroid effect is resolved. 3. BMI 47: 4. Migraine with aura: Patient with longstanding history of migraine headaches. Notes an increase in frequency over the past 2 wks. Presentation possible complex migraine due to facial parasthesia. CT/CTA negative. 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 Started on ppx -- mag/coQ10 Dispo: Can d/c to home today. has appointment at [facility] on with Dr. Vargas. She will need to followup twice weekly for labs/pcp visit and have testing. She will continue to check her glucose and BP four times daily Strict ER precautions reviewed.
[2018-06-22 11:31] VITALS: BP 133/55; TEMP 98
--- NOTE | 2018-06-22 14:19 | CT ---
CT angiogram of head and neck: 06/17/2018 COMPARISON: None HISTORY: Headache, left-sided facial droop and numbness TECHNIQUE: Axial CT imaging at 1.25 mm intervals from vertex through lung apices with IV contrast usi ng a CT angiogram protocol. Coronal and sagittal 3-D reformatted imaging obtained. FINDINGS: The visualized lung apices are unremarkable. The paranasal sinuses and mastoid air cells demonstrate partial opacification of the right mastoid ai r cells. Polypoid mucosal thickening of the left maxillary sinus inferiorly noted. Parotid glands and submandibular glands grossly unremarkable. Thyroid gland, cricoid cartilage, thyroid cartilage, hyoi d bone, and tonsillar pillars grossly unremarkable. No lymphadenopathy is seen within the neck. Origin of the great vessels appears grossly unremarkable. Detailed assessment of the structures of th e neck somewhat limited on the basis of streak artifact associated with body habitus. Bilateral verte bral arteries appear grossly unremarkable. No hemodynamically significant stenosis on the basis of NASCET criteria is seen involving the common carotid artery or the internal carotid artery on either side. The basilar artery appears patent as do the branches of the basilar artery. The M1 segment and A1 seg ment appears patent bilaterally. No central arterial occlusion. No acute osseous abnormality. IMPRESSION: No acute findings. Results called to Dr. Zimmerman at 11:55 PM 06/17/2018 Transcribed Date/Time: 06/22/2018 2:18 PM
[2018-06-22] MEDS ORDERED: Insulin Glargine 60 UNITS in Pre-Filled Syringe SC SCH (21:00)
== END 2018-06-22 13:41 | disposition home or self-care (01) | DRG 832 ==
LOC: L&D/OP 21:00 → 3SE 06-18 01:35 → OBSVTOIN 06-18 01:35 → 3SW 06-19 18:14
PROVIDERS: ADMIT Emergency Medicine; ATTEND Emergency Medicine
DX: O10.913 Unspecified pre-existing hypertension complicating pregnancy, third trimester (principal); O24.113 Pre-existing type 2 diabetes mellitus, in pregnancy, third trimester; E11.9 Type 2 diabetes mellitus without complications; G40.909 Epilepsy, unspecified, not intractable, without status epilepticus; O99.353 Diseases of the nervous system complicating pregnancy, third trimester; O99.343 Other mental disorders complicating pregnancy, third trimester; F41.9 Anxiety disorder, unspecified; G43.109 Migraine with aura, not intractable, without status migrainosus; R00.0 Tachycardia, unspecified; E88.81 Metabolic syndrome and other insulin resistance; O99.283 Endocrine, nutritional and metabolic diseases complicating pregnancy, third trimester; E28.2 Polycystic ovarian syndrome; Z79.84 Long term (current) use of oral hypoglycemic drugs; Z3A.30 30 weeks gestation of pregnancy; Z79.4 Long term (current) use of insulin
CPT/HCPCS: 36415; 36416; 59025; 70450; 70496; 70498; 70551; 76700; 76805; 76819; 80053; 80306; 82550; 82553; 82565; 82570; 84156; 84450; 84484; 84550; 85014; 85018; 85025; 85027; 85049; 85610; 85730; 86780; 86850; 86900; 86901; 87340; 93005; 93010; 93306; J0702; J1815; J1825; Q9966

== ENCOUNTER 2018-07-08 13:23 | Observation (INO) | payer OTHER ==
--- NOTE | 2018-07-08 13:32 | PDOC.FPROB ---
Addendum entered and electronically signed by Bakari Lynn MD 07/08/18 16:42 : I Bakari Lynn-[id number] was in the room with the international marketing coordinator during the interview and agree with her history and physical. I agree with the plan at this time. We will await labs and U/S report to determine plan. We extensively reviewed pts clinic records. It appears pt had past visit in hospital with Severe range pressures and elevated Uric acid. Pt possibly has Pre -Eclampsia at this time. No severe range pressures noted at this time. Original Note: FMR OB H&P: HPI - History of Present Illness Chief Complaint: prolonged reactive NST, decreased JAY Indentification: 33yo @ 32.4 wks by 6.2 wk sono History of Present Illness: 33yo @ 32.4 wks by 6.2 wk sono with White class F DM on insulin, cHTN (not on BP medication), and class III obesity presents for prolonged reactive NST, and decreasing JAY, in clinic 5.5. Pt denies LOF, VB, abnormal discharge. Reports good mvmt. Denies headache, vision changes, CP. Reports she is always slightly SOB because she is overweight. Of note, patient also had recent admission for "stroke like symptoms" and was worked up for pre-eclampsia. Primary Care Physician: Mal Vargas FMR OB H&P: Current - Care : 1 Para: 0 Gestational age: 32.4 Due date: 08/29/18 Dating Criteria: 6.2 wk sono Course/Complications: cHTN White Class F DM, on insulin class III obesity - OB Labs Blood type: O RH: positive Antibody Screen: negative HIV: negative RPR: negative HepBsAg: negative Rubella: immune Gonorrhea: negative Chlamydia: negative Pap Smear: ASCUS, HPV neg A1c: 10.8-> 6.2 GBS: negative H&H: 11.6 - Additional Ultrasound Additional: JAY 8.3 on 07/01/18 with Braulio MFM: placenta: posterior 3 vessel cord [place] 36% Visualized stomach, kidneys, bladder, 3 vessel cord FMR OB H&P: History - Past Medical History PMH: Chiari malformation type I Hearing loss, right ear DM Class F on insulin Obesity Class III Anxiety/depression chronic HTN asthma in childhood history of seizures in childhood age 11, likely clonic-tonic history of syncopal episodes many years ago - NURSING DIRECTOR History NURSING DIRECTOR History: ASCUS on pap - Surgical History Sx History: tympanostomy tubes adenoidectomy - Social History Social History: denies t/a/d use - Family History Family History: Mother- lung cancer age 60, thyroid disease, CHF Father - colon cancer age 52 Uncle, grandpa, and aunt with cancers as well FMR OB H&P: Medications - Current Home Medications: Medication Instructions Recorded Confirmed Type Pnv No.95/Ferrous Fum/Folic AC 1 each PO DAILY 01/27/18 06/17/18 History [ Vitamin Tablet] pyridOXINE [Vitamin B 6] 100 mg PO DAILY 01/27/18 07/08/18 History FLUoxetine HCl [Prozac] 20 mg PO HS 06/17/18 07/08/18 History Ranitidine HCl [Zantac 75] 75 mg PO DAILY 06/17/18 07/08/18 History Aspirin [Ecotrin Low Strength] 81 mg PO DAILY #90 tab 06/22/18 07/08/18 Rx Melatonin 3 mg PO HS PRN tab 06/22/18 07/08/18 Rx Blood-Glucose Control, Normal 1 bot ONE #1 bot 07/10/18 Rx [Control Solution] Blood-Glucose Meter [One Touch 1 each ASDIR #1 kit 07/10/18 Rx Ultra 2 Glucose Meter] Insulin Glargine [Lantus Vial] 62 units SC HS vial 07/10/18 Rx Insulin Glargine [Lantus Vial] 62 units SC HS #0 07/10/18 07/08/18 Rx Lancets [One Touch Delica Lancets] 1 box ASDIR #1 box 07/10/18 Rx Lancets [One Touch Delica Lancets] 2 box ASDIR #2 box 07/10/18 Rx Allergies/Adverse Reactions: Allergies Allergy/AdvReac Type Severity Reaction Status Date / Time diphenhydramine Allergy Hives Verified 07/08/18 14:28 [From Benadryl] FMR OB H&P: ROS - Review of Systems General: denies: fever/chills, weight/appetite/sleep changes Eyes: reports: others (some hearing loss right ear). denies: eye pain, vision changes ENT: reports: nasal congestion, rhinorrhea. denies: sore throat Cardiovascular: reports: edema (mild). denies: chest pain, palpitation Respiratory: reports: congestion, shortness of breath (patient reports she is always SOB due to being overweight, chronic). denies: cough Gastrointestinal: reports: nausea. denies: abdominal pain, vomiting, diarrhea, constipation, bright red blood, dark black tarry stools Genitourinary (Female): denies: dysuria, hematuria, vaginal bleeding, contractions Musculoskeletal: denies: stiffness, tenderness Neurologic: denies: numbness, syncope, seizures, weakness Psychological: reports: depression, anxiety FMR OB H&P: Vital Signs - Maternal Vital signs: 139/68, HR 98, R 18, 99% RA, T 99 - Heart Tones Baseline: 140 Variability: moderate Acceleration: present (1 accel present) Deceleration: absent [place] contractions every: none FMR OB H&P: Physical Exam - Physical Exam General: NAD, awake, alert and oriented HEENT: normocephalic and atraumatic, PERRLA, EOMI, MMM, conjunctiva clear, oropharynx clear Neck: supple Heart: RRR, normal S1/S2, no murmurs/rubs/gallops, pulses present, no edema General: CTAB, no respiratory distress, good air movement, no rales/rhonchi, no wheezing Abdomen: soft, gravid, non-tender, bowel sound present Musculoskeletal: pulses present, FROM in all four extremities, no atrophy Skin: no rash, good tugor, capillary refill <2 seconds Lymphatic: no unusual bruising or bleeding, no purpura, no petechia Psychiatric: intact recent and remote memory, good judgement and insight, normal mood and affect FMR OB H&P: A/P - Problem List (1) Maternal diabetes mellitus in third trimester Status: Acute Code(s): O24.913 - UNSPECIFIED DIABETES MELLITUS IN , THIRD TRIMESTER (2) Anxiety Status: Acute Code(s): F41.9 - ANXIETY DISORDER, UNSPECIFIED (3) Depression Status: Acute Code(s): F32.9 - MAJOR DEPRESSIVE DISORDER, SINGLE EPISODE, UNSPECIFIED (4) Obesity Status: Acute Code(s): E66.9 - OBESITY, UNSPECIFIED (5) Obesity affecting in third trimester Status: Acute Code(s): O99.213 - OBESITY COMPLICATING , THIRD TRIMESTER (6) Hearing loss Status: Acute Code(s): H91.90 - UNSPECIFIED HEARING LOSS, UNSPECIFIED EAR (7) Hypertension Status: Chronic Code(s): I10 - ESSENTIAL (PRIMARY) HYPERTENSION Qualifiers: Hypertension type: essential hypertension Qualified Code(s): I10 - Essential (primary) hypertension (8) IDDM (insulin dependent diabetes mellitus) Status: Chronic Code(s): E11.9 - TYPE 2 DIABETES MELLITUS WITHOUT COMPLICATIONS; Z79.4 - LONGTERM (CURRENT) USE OF INSULIN Discussion: Date/Time: 07/08/18 1332 33yo @ 32.4 wks by 6.2 wk sono with White class F DM on insulin, cHTN (not on BP medication), and class III obesity presents for prolonged reactive NST and decreasing JAY. sIUP, , High risk Concern for oligohydramnios - Sent from [facility] clinic - borderline JAY of 5.5 in clinic - NST reactive after 40 min in clinic - Repeat BPP/NST, with umb art dopplers, 3 vessel cord, visualize placenta, kidneys, stomach, bladder - CMP, uric acid pending - UDS pending DM class F - Continue home regimen of insulin - Lantus QPM 65 u - Humalog 38 u TID-WM - fasting and 2 hr post prandial accuchecks - continue asa 81 mg cHTN, with possible super-imposed Pre-eclampsia - not on HTN medication - Patient had recent admission with migraines, was having severe range pressures - Pt was on CoQ10 and mag for migraine ppx, does not seem to be currently taking outpatient - BP now not in severe range - Consider early delivery - monitor BPs - HH, CC diet Mild dehydration - Urine appears very concentrated - LR 1 L bolus, maintenance at 170 ml/hr - UA pending - Encourage PO hydration Anxiety/Depression - continue home fluoxetine Obesity Class III Hearing Loss right ear Chiari malformation Abnormal pap -ASCUS - will need follow up post- PCP: Alicia Diet: CC, HH DVT ppx: SCDs GI ppx: home ranitidine Dispo: admit to wood pattern maker for observation Addendum - Attending - Attending Attestation Date/Time: 07/08/18 1632 I personally evaluated the patient and discussed the management with Dr. Cuellar and Dr. Lynn I agree with the History, Examination, Assessment and Plan documented above with any addition or exceptions noted below. 33 yo female at 32.4 wks by 6.2 wk sono with very high risk here for evaluation of low amniotic fluid and nonreactive NST. HERRERA: 08/29/18 Patient was seen earlier today for routine testing. Nonreactive NST in clinic with low JAY. Patient denies LOF, VB, or contractions. Reports good movement. Also denies headaches, visual changes, abdominal pain, N/V, CP, SOB. NAD. RRR. No murmurs. CTAB. No wheezing. Gravid. Nontender. BS present. Trace edema FHT: Reactive. +FM No contractions. BPP: 10/21 with DVP of 2 x 1 cm Labs: 24 hour protein =1500 mg (01/12/18) --> 1080 (01/27/18) --> 225 mg (06/17/18) Cr = 0.52 --> 0.45 --> 0.59 --> 0.55 --> 0.58 --> 0.6 (06/18/18) --> 0.5 (07/08/18) AST = 17 (12/2017) --> 19 (01/2018) --> 22 --> 21 --> 29 --> 45 (06/18/18) --> 19 (07/08/18) PLT = 285 --> 299 --> 282 --> 220 --> 260 (steroids) --> 258 (steroids) Uric acid = 7.3 --> 7.3 --> 7.8 --> 7.7 (06/18/18) --> 6.5 (07/08/18) A1c = 10.7% (01/12/18) --> 6.2% (06/16/18) --> FLM steroids -- 06/18/18, 06/19/18 1. sIUP: IOB labs reviewed. No NIPT. Anatomy reviewed (level II: normal stomach , kidneys, bladder, 3VC). ECHO WNL. Flu 01/2018. Tdap 06/2018. 3T negative. GBS negative (06/16/18) 2. cHTN: Appears to have superimposed preeclampsia. Noted to have elevated BP above baseline, AST 45, CR 0.6, Uric acid 7.8 with increased frequency of headaches/migraines. Admitted 06/17/18 for workup. Symptoms improved 3 days later. FLM steriods given due to risk. Has been discharged with close follow up. Laborist consulted. Plan to continue weekly labs, testing, TID home BP readings, weekly PCP visits. Has been following with [facility]. Continue ASA. Normotension to mild range pressures since discharge. Normotension today. Now with low JAY. Concern for progression. Admit to obs. 3. Class F, pregestational DM: [facility] following and co-managing outpatient. Reviewed level II sono reports and ECHO. No concerns. Normal growth and dopplers. Patient reports she has been self-titrating insulin at home to reach goals of < 95/120. Patient currently on Lantus 65 and Lispro 38//. Discussed concerns with patient in regards to amount of insulin. Glucose log from home reviewed. Appears to be at goal. Will start with current insulin regiment but will monitor closely. Adjust as needed. Repeat A1C. 4. BMI 47: Patient with metabolic syndrome and PCOS. Keep weight gain at most 15 lbs total. TSH (3.050 --> 0.948) WNL. Encourage breast feeding. 5. Migraine with aura and mild Chiari malformation: No issues since earlier this month. Has stopped ppx medications. 6. hx of childhood seizure disorder: Last seizure age 9. Initial seizure at age 5. Was on Tegretol up to age 11. Level II sono grossly normal anatomy. 7. MDD: On SSRI. Stable. 8. Childhood asthma: Resolved. 9. Family hx: CVA, CHD, HTN, DM, Thyroid dz, lung cancer, colon cancer 10. Chronic Sinus Tachycardia: Resolved. Patient reports a longstanding diagnosis but chart view does not support. Appears episodic at best. ECHO WNL. 11. Borderline JAY: Mulitple possible etiologies. Low risk for ROM. AMNisure negative. No significant history. Will defer pelvic exam at this time. Repeat BPP in AM after overnight hydration. Close monitoring of blood pressure and glucose readings. Will add umbilical artery dopplers. Recent EFW last week appropriate for gestational age. No evidence of SGA, FGR, or LGA. Dispo: Monitor closely. Trend labs, blood pressure, and glucose. Repeat JAY in [facility]. Vishal
[2018-07-08 14:59] VITALS: BMI 46.5
[2018-07-08] MEDS ORDERED: HumaLOG 300 UNITS/3 ML VIAL SC SCH (15:00)
[2018-07-08] MEDS ORDERED: Dextrose 50% Abboject 50 ML SYRINGE SLOW IVP PRN (15:24)
[2018-07-08] MEDS ORDERED: Dextrose 5% in Water 1,000 ML IV PRN (15:24)
[2018-07-08] MEDS ORDERED: Melatonin 3 MG TAB PO PRN (15:35)
[2018-07-08 15:57] LABS: Chloride 108 mmol/L (98-107); Potassium 3.7 mmol/L (3.5-5.1); Sodium 138 mmol/L (136-145)
[2018-07-08 15:58] LABS: Glucose 146 mg/dL (70-105)
[2018-07-08 16:00] LABS: Anion Gap 13 mmol/L (10-20); Carbon Dioxide 21 mmol/L (22-29)
--- NOTE | 2018-07-08 16:01 | ULT ---
EXAM: US Biophysical Profile Umbilical artery Doppler evaluation with spectral analysis PROVIDED CLINICAL HISTORY: Low amniotic fluid index COMPARISON: 06/18/2018 FINDINGS: Again noted is a single intrauterine gestation in cephalic presentation. Cardiac Doppler demonstrates heart tones with a heart rate of 139 bpm. The placenta is located posteriorly without evidence of placenta previa. The amniotic fluid is decreased with decrease in amniotic fluid index me asuring 4.6 cm. Amniotic fluid index on prior study was 10.3 cm. This examination was not performed for evaluation of the anatomical structures. However the borrero ited visualized lower kidneys and imaged urinary bladder demonstrate a normal sonographic appearance. Non-stress biophysical profile demonstrates a score of 2 each for tone, breathing, movements, and amniotic fluid volume. Umbilical artery Doppler: Systolic velocity measurements at the placental cord insertion is 39.8 cm/s, 31 cm/s in the mid cord, and 59.7 cm/s at the cord insertion. Systolic to diastolic ratio at the placental cord insertion is 2.4, in the mid cord 2.3, and cord ins ertion at the level of the fetus 2.97. IMPRESSION: 1. Oligohydramnios. 2. Single intrauterine gestation in cephalic presentation with heart tones documented. 3. Total biophysical profile score of 8 out of 8. 4. Umbilical artery Doppler evaluation is as described above. 5. Above findings discussed with [facility], labor and delivery nurse in charge of patient's hospital car gennaro on 07/08/2018 at 1557 hours.
[2018-07-08 16:02] LABS: Calc. Creatinine Clearance 285 mL/min (70-130); Estimated GFR-MDRD Greater than 90
[2018-07-08 16:03] LABS: BUN (Urea Nitrogen) 8 mg/dL (7.0-18.7)
--- NOTE | 2018-07-08 16:06 | ULT ---
EXAM: US Abd Pel DupArt Ash Flow Cmp PROVIDED CLINICAL HISTORY: Low amniotic fluid index COMPARISON: 06/18/2018 FINDINGS/IMPRESSION:: The umbilical artery Dopplers were described on the ultrasound biophysical profile, please see that dictation for further details. On the report of biophysical profile, imaging of the stomach was performed, and the stomach is distended but has a normal sonographic appearance.
[2018-07-08 16:08] LABS: ALT (SGPT) 24 U/L (8-55); AST (SGOT) 19 U/L (5-34); Albumin 2.9 g/dL (3.5-5.0); Alkaline Phosphatase 68 U/L (40-150); Bilirubin, Total 0.2 mg/dL (0.2-1.2); Protein, Total 5.9 g/dL (6.0-8.3); Uric Acid 6.5 mg/dL (2.6-6.0)
[2018-07-08] MEDS ORDERED: Lactated Ringer's 1,000 ML IV SCH ×2 (16:15)
[2018-07-08] MEDS ORDERED: Acetaminophen 500 MG TAB PO PRN (16:32)
[2018-07-08] MEDS ORDERED: Docusate 100 MG CAP PO PRN (16:32)
[2018-07-08] MEDS ORDERED: Ondansetron PF 4 MG/2 ML Vial IVP PRN (16:32)
[2018-07-08 16:35] LABS: Bilirubin Small (Negative); Blood, Urine Negative (Negative); Clarity TURBID (Clear); Glucose, Urine (Dipstick) Negative (Negative); Leukocyte Moderate (Negative); Nitrite Negative (Negative); Protein, Urine (Dipstick) 30 mg/dL (Neg-Trace); Specific Gravity, Urine 1.026 (1.002-1.036); pH, Urine 5.5 (5.0-9.0)
[2018-07-08 16:37] LABS: Bacteria/HPF 1+ HPF (None Seen); Hyaline Casts/LPF 7-10 HYALINE CAST LPF (0-3 Hyaline); Pathc Cast-AUWi Flag 2.17 (0-2.49); WBC/HPF 21-50 HPF (0-3)
[2018-07-08 16:45] LABS: Amphetamine Not Detected (NotDetected); Barbiturates Screen Not Detected (NotDetected); Benzodiazepine Screen Not Detected (NotDetected); Cocaine Metabolite Screen Not Detected (NotDetected); Medtox Control Line Valid? VALID (VALID); Medtox Reader # READER 4; Methadone Not Detected (NotDetected); Methamphetamine Not Detected (NotDetected); Opiate Screen Not Detected (NotDetected); Oxycodone Screen Not Detected (NotDetected); Phencyclidine (PCP) Not Detected (NotDetected); THC/Cannabinoid Screen Not Detected (NotDetected); Tricyclic Screen Not Detected (NotDetected)
[2018-07-08 16:50] LABS: RBC/HPF 0-3 HPF (0-3)
[2018-07-08 16:51] LABS: Crystals/HPF 2+ AMORPH URATES HPF (Negative)
[2018-07-08 16:52] LABS: Amnisure Internal Control QC ACCEPTABLE (ACCEPTABLE); Amnisure Test No Membranes Rupture (No Rupture)
[2018-07-08] MEDS: Lactated Ringer's 1,000 ML IV SCH ×2 (16:54→23:15)
[2018-07-08] MEDS: cefTRIAXone\\ROCEPHIN 2 GM in Sodium Chloride 0.9% 100 ML IVPB SCH (17:55)
[2018-07-08] MEDS: HumaLOG 300 UNITS/3 ML VIAL SC SCH (19:22)
[2018-07-08] MEDS ORDERED: Insulin Glargine 65 UNITS in Pre-Filled Syringe 1 EACH SC SCH (21:00)
[2018-07-08] MEDS: FLUoxetine HCl 20 MG CAP PO SCH (21:45)
[2018-07-08 22:45] LABS: Glucose Accucheck Confirmation 52 mg/dl (70-105)
[2018-07-09] MEDS: Lactated Ringer's 1,000 ML IV SCH ×2 (05:12→10:43)
--- NOTE | 2018-07-09 08:00 | PDOC.OBAPN ---
FMR OB AP PN: Sub - Interval History Hospital Day: 2 Chief Complaint: No complaint offered Indentification: 33yo @ 32.5 wks by 6.2 wk s Interval History: Pt had hypoglycemic episode last night. FMR OB AP PN: Obj - Maternal Vital signs: BP: [130/66] HR: [88] RR: [18] Tmax: [98.6] Pox: [98]% on [ra] - Urine output I&O: 07/08/18 07/09/18 07/10/18 06:59 06:59 06:59 Intake Total 2400 Balance 2400 - Heart Tones Baseline: 140 Variability: absent Deceleration: absent Category: category 1 [place] contractions every: none visualized FMR OB AP PN: Exam - Physical Exam General: NAD, awake, alert and oriented HEENT: normocephalic and atraumatic, PERRLA, grossly normal vision, grossly normal hearing Neck: supple, trachea midline Chest: non-tender to palpation Heart: RRR, normal S1/S2, no murmurs/rubs/gallops, pulses present, no edema General: CTAB, no respiratory distress, good air movement, no rales/rhonchi, no wheezing Abdomen: soft, gravid, non-tender, bowel sound present, no masses Musculoskeletal: normal gait and station, FROM in all four extremities Neurological: sensation to pain,touch and proprioception grossly normal Skin: no rash, capillary refill <2 seconds Psychiatric: intact recent and remote memory, normal mood and affect FMR OB AP PN: Data - Labs Lab results: Laboratory Results - last 24 hr 07/08/18 07/08/18 07/08/18 13:58 15:35 16:07 Sodium 138 Potassium 3.7 Chloride 108 H Carbon Dioxide 21 L Anion Gap 13 BUN 8 Creatinine 0.59 L Estimated GFR (MDRD) Greater than 90 Glucose 146 H POC Glucose 131 H Glucose Meter Confirm Uric Acid 6.5 H Calcium 9.0 Total Bilirubin 0.2 AST 19 ALT 24 Alkaline Phosphatase 68 Serum Total Protein 5.9 L Albumin 2.9 L Globulin 3.0 Albumin/Globulin Ratio 1.0 L Urine Color Urine Clarity Urine pH Ur Specific [place] Urine Protein Urine Glucose (UA) Urine Ketones Urine Blood Urine Nitrite Urine Bilirubin Urine Urobilinogen Ur Leukocyte Esterase Urine RBC Urine WBC Ur Squamous Epith Cells Urine Crystals Urine Bacteria Hyaline Casts Amnio Swab Test Urine Opiates Screen Not Detected Ur Oxycodone Screen Not Detected Urine Methadone Screen Not Detected Ur Propoxyphene Screen Not Detected Ur Barbiturates Screen Not Detected Ur Tricyclics Screen Not Detected Ur Phencyclidine Scrn Not Detected Ur Amphetamines Screen Not Detected U Methamphetamines Scrn Not Detected U Benzodiazepines Scrn Not Detected U Cocaine Metab Screen Not Detected U Cannabinoids Screen Not Detected Drug Screen Comment 07/08/18 07/08/18 07/08/18 16:07 16:07 22:10 Sodium Potassium Chloride Carbon Dioxide Anion Gap BUN Creatinine Estimated GFR (MDRD) Glucose POC Glucose Glucose Meter Confirm 52 L* Uric Acid Calcium Total Bilirubin AST ALT Alkaline Phosphatase Serum Total Protein Albumin Globulin Albumin/Globulin Ratio Urine Color ADRIÁN Urine Clarity TURBID Urine pH 5.5 Ur Specific [place] 1.026 Urine Protein 30 H Urine Glucose (UA) Negative Urine Ketones Negative Urine Blood Negative Urine Nitrite Negative Urine Bilirubin Small H Urine Urobilinogen 1.0 Ur Leukocyte Esterase Moderate H Urine RBC 0-3 Urine WBC 21-50 H Ur Squamous Epith Cells 4-6 H Urine Crystals 2+ AMORPH URATES Urine Bacteria 1+ H Hyaline Casts 7-10 HYALINE CAST H Amnio Swab Test No Membranes Rupture Urine Opiates Screen Ur Oxycodone Screen Urine Methadone Screen Ur Propoxyphene Screen Ur Barbiturates Screen Ur Tricyclics Screen Ur Phencyclidine Scrn Ur Amphetamines Screen U Methamphetamines Scrn U Benzodiazepines Scrn U Cocaine Metab Screen U Cannabinoids Screen Drug Screen Comment 07/08/18 07/09/18 22:32 06:17 Sodium Potassium Chloride Carbon Dioxide Anion Gap BUN Creatinine Estimated GFR (MDRD) Glucose POC Glucose 77 71 Glucose Meter Confirm Uric Acid Calcium Total Bilirubin AST ALT Alkaline Phosphatase Serum Total Protein Albumin Globulin Albumin/Globulin Ratio Urine Color Urine Clarity Urine pH Ur Specific [place] Urine Protein Urine Glucose (UA) Urine Ketones Urine Blood Urine Nitrite Urine Bilirubin Urine Urobilinogen Ur Leukocyte Esterase Urine RBC Urine WBC Ur Squamous Epith Cells Urine Crystals Urine Bacteria Hyaline Casts Amnio Swab Test Urine Opiates Screen Ur Oxycodone Screen Urine Methadone Screen Ur Propoxyphene Screen Ur Barbiturates Screen Ur Tricyclics Screen Ur Phencyclidine Scrn Ur Amphetamines Screen U Methamphetamines Scrn U Benzodiazepines Scrn U Cocaine Metab Screen U Cannabinoids Screen Drug Screen Comment FMR OB AP PN: A/P - Problem List (1) Oligohydramnios Status: Acute Code(s): O41.00X0 - OLIGOHYDRAMNIOS, UNSP TRIMESTER, NOT APPLICABLE OR UNSP (2) Anxiety Status: Acute Code(s): F41.9 - ANXIETY DISORDER, UNSPECIFIED (3) Depression Status: Acute Code(s): F32.9 - MAJOR DEPRESSIVE DISORDER, SINGLE EPISODE, UNSPECIFIED (4) Maternal diabetes mellitus in third trimester Status: Acute Code(s): O24.913 - UNSPECIFIED DIABETES MELLITUS IN , THIRD TRIMESTER (5) Diabetes Status: Acute Code(s): E11.9 - TYPE 2 DIABETES MELLITUS WITHOUT COMPLICATIONS Qualifiers: Diabetes mellitus type: type 2 Diabetes mellitus half-way insulin use: without half-way use (6) UTI (urinary tract infection) Status: Acute Disposition: 33yo @ 32.5 wks by 6.2 wk sono with White class F DM on insulin, cHTN (not on BP medication), and class III obesity presents for prolonged reactive NST and decreasing JAY. sIUP, , High risk Oligohydramnios - Sent from [facility] - borderline JAY of 5.5 in clinic - NST reactive after 40 min in clinic - 07/08 BPP yesterday showed JAY 4.6 but BPP 8/8. DVP was above 2 cm. Umbilical Artery Doppler above 50%tile. 05/11 BPP shows JAY 4.1. DVP 2.01 cm. - Uric acid 6.5 -Got LR bolus and been on LR 170 mls/hr - UDS negative -FHT show baseline 140. No sign of stress. Good variability. Cat 1 strip. DM class F - Had episode of hypoglycemia yesterday evening. May want to decrease evening dose of humalog. Diet may not be as accurate to home diet her while inpatient. Will continue to watch sugars and adjust as needed. - Lantus QPM 65 u - Humalog 38 u TID-WM - fasting and 2 hr post prandial accuchecks - continue asa 81 mg cHTN, with possible super-imposed Pre-eclampsia - not on HTN medication - Patient had recent admission with migraines, was having severe range pressures - Pt was on CoQ10 and mag for migraine ppx, does not seem to be currently taking outpatient - No severe range pressures noted. Pt had a few BP above 140. Pt meets criteria for pre-eclampsia at this time with elevated BP and elevated uric acid. - Consider early delivery - monitor BPs - HH, CC diet UTI -LE +, Bact 1+, 21-50 WBC, Nit neg -Urine very cloudy. -Started on Rocephin IV abx. Will await cx at this time. Mild dehydration - Urine appears very concentrated - LR 1 L bolus, maintenance at 170 ml/hr - Encourage PO hydration Anxiety/Depression - continue home fluoxetine Obesity Class III Hearing Loss right ear Chiari malformation Abnormal pap -ASCUS - will need follow up post- Discussion: Date/Time: 07/09/18 4970 This H&P was discussed with [] and [] who agree with the above documentation and plan. Addendum - Attending - Attending Attestation Date/Time: 07/08/18 1011 I personally evaluated the patient and discussed the management with Dr. Lynn I agree with the History, Examination, Assessment and Plan documented above with any addition or exceptions noted below. 33 yo female at 32.4 wks by 6.2 wk sono with very high risk here for evaluation of low amniotic fluid and nonreactive NST. HERRERA: 08/29/18 HD#1 +FM. No headache, visual changes, abdominal pain, N/V. No LOF or VB. No contractions. Reactive monitoring. However multiple episodes of hypoglycemia. Labs: 24 hour protein =1500 mg (01/12/18) --> 1080 (01/27/18) --> 225 mg (06/17/18) Cr = 0.52 --> 0.45 --> 0.59 --> 0.55 --> 0.58 --> 0.6 (06/18/18) --> 0.5 (07/08/18) AST = 17 (12/2017) --> 19 (01/2018) --> 22 --> 21 --> 29 --> 45 (06/18/18) --> 19 (07/08/18) PLT = 285 --> 299 --> 282 --> 220 --> 260 (steroids) --> 258 (steroids) Uric acid = 7.3 --> 7.3 --> 7.8 --> 7.7 (06/18/18) --> 6.5 (07/08/18) A1c = 10.7% (01/12/18) --> 6.2% (06/16/18) --> 5.2% (07/09/18) FLM steroids -- 06/18/18, 06/19/18 BPP: 8 (07/08), 8 (07/09) 1. sIUP: IOB labs reviewed. No NIPT. Anatomy reviewed (level II: normal stomach , kidneys, bladder, 3VC). ECHO WNL. Flu 01/2018. Tdap 06/2018. 3T negative. GBS negative (06/16/18) 2. cHTN: Normotensive to mild range but < 140/90. No medications. Continue ASA. Appears to have superimposed preeclampsia. Noted to have elevated BP above baseline, AST 45, CR 0.6, Uric acid 7.8 with increased frequency of headaches/ migraines. Admitted 06/17/18 for workup. Symptoms improved 3 days later. FLM steriods given due to risk. Has been discharged with close follow up. Plan to continue weekly labs, testing, TID home BP readings, weekly PCP visits. Has been following with [facility]. 3. Class F, pregestational DM: Now with continued hypoglycemia. Likely dietary vs self titration vs abnormal meter readings. Patient to bring meter for measuring. Will hold all premeal. Continue obs. A1c down to 5.2%. Will need to keep goal of 6.5% due to hypoglycemia risk. Repeat BPP this AM 10/21. NST reactive. MFM following and co-managing outpatient. Reviewed level II sono reports and ECHO. No concerns. Normal growth and dopplers. 4. BMI 47: Patient with metabolic syndrome and PCOS. Keep weight gain at most 15 lbs total. TSH (3.050 --> 0.948) WNL. Encourage breast feeding. 5. Migraine with aura and mild Chiari malformation: No issues since earlier this month. Has stopped ppx medications. 6. hx of childhood seizure disorder: Last seizure age 9. Initial seizure at age 5. Was on Tegretol up to age 11. Level II sono grossly normal anatomy. 7. MDD: On SSRI. Stable. 8. Childhood asthma: Resolved. 9. Family hx: CVA, CHD, HTN, DM, Thyroid dz, lung cancer, colon cancer 10. Chronic Sinus Tachycardia: Resolved. Patient reports a longstanding diagnosis but chart view does not support. Appears episodic at best. ECHO WNL. 11. Borderline JAY: Improved with hydration. Now with recurrent hypoglycemia. Will adjust maternal insulin regiment. Images reviewed. Will repeat bedside JAY tomorrow. Dispo: Monitor closely. Trend glucose closely. Repeat JAY in AM. Vishal
--- NOTE | 2018-07-09 08:03 | ULT ---
Sonographic biophysical profile exam HISTORY: Oligohydramnios. FINDINGS: At the time of sonography, good tone, breathing movement, and gross movements are dem onstrated. A vertical pocket of fluid in quadrant 2 is 2.0 cm depth. Amniotic fluid index 4.1. IMPRESSION: Sonographic biophysical profile score 8/8. Amniotic fluid index 4.1.
[2018-07-09] MEDS: HumaLOG 300 UNITS/3 ML VIAL SC SCH ×3 (08:41→15:23)
[2018-07-09] MEDS ORDERED: Famotidine 20 MG TAB PO SCH (09:00)
[2018-07-09] MEDS ORDERED: Prenatal Vitamin 1 TAB PO SCH (09:00)
[2018-07-09] MEDS ORDERED: pyridOXINE 50 MG (B6) TAB PO SCH (09:00)
[2018-07-09] MEDS ORDERED: Aspirin 81 mg Enteric Coated Tablet PO SCH (09:00)
[2018-07-09 10:09] LABS: Hemoglobin A1c 5.2 % (4.0-6.0)
[2018-07-09 19:10] VITALS: BP 135/68
[2018-07-09] MEDS: cefTRIAXone\\ROCEPHIN 2 GM in Sodium Chloride 0.9% 100 ML IVPB SCH (19:16)
--- NOTE | 2018-07-09 23:37 | PDOC.EVN ---
Event Note - Event Note Event Note: NST reactive. JAY 7.25 with deepest vertical pocket of 2.6. Per nurse, 2 hour postprandial BG 89 and BG reading of 115 on patient's home glucometer. Notes it appears home glucometer reads about 15 higher. Mealtime humalog stopped. To continue am lantus.
[2018-07-10] MEDS: FLUoxetine HCl 20 MG CAP PO SCH (02:51)
[2018-07-10 03:57] VITALS: TEMP 98.3
--- NOTE | 2018-07-10 05:48 | PDOC.OBAPN ---
FMR OB AP PN: Sub - Interval History Hospital Day: 3 Chief Complaint: concern for low JAY Indentification: 33yo @ 32.6 wks today 07/10 by 6.2 wk sono Interval History: Patient is eating and drinking well, no complaints this AM. FMR OB AP PN: Obj - Maternal Vital signs: BP: [135/68] HR: [75] RR: [18] Tmax: [98.5] Pox: []% on [] Wt: [] - Urine output I&O: 07/08/18 07/09/18 07/10/18 06:59 06:59 06:59 Intake Total 2400 Balance 2400 FMR OB AP PN: Exam - Physical Exam General: NAD, awake, alert and oriented HEENT: normocephalic and atraumatic Heart: RRR, normal S1/S2 General: CTAB, no respiratory distress, no wheezing Abdomen: soft, gravid, non-tender, bowel sound present Skin: no rash, good tugor, capillary refill <2 seconds Lymphatic: no unusual bruising or bleeding, no purpura Psychiatric: intact recent and remote memory, good judgement and insight, normal mood and affect FMR OB AP PN: Data - Labs Lab results: Laboratory Results - last 24 hr 07/08/18 07/09/18 07/09/18 21:45 06:17 09:21 POC Glucose 55 L* 71 Hemoglobin A1c 5.2 07/09/18 07/09/18 07/09/18 11:31 14:42 16:06 POC Glucose 55 L* 111 H 91 Hemoglobin A1c R OB AP PN: A/P - Problem List (1) Maternal diabetes mellitus in third trimester Status: Acute Code(s): O24.913 - UNSPECIFIED DIABETES MELLITUS IN , THIRD TRIMESTER (2) Anxiety Status: Acute Code(s): F41.9 - ANXIETY DISORDER, UNSPECIFIED (3) Depression Status: Acute Code(s): F32.9 - MAJOR DEPRESSIVE DISORDER, SINGLE EPISODE, UNSPECIFIED (4) Obesity Status: Acute Code(s): E66.9 - OBESITY, UNSPECIFIED (5) Obesity affecting in third trimester Status: Acute Code(s): O99.213 - OBESITY COMPLICATING , THIRD TRIMESTER (6) Hearing loss Status: Acute Code(s): H91.90 - UNSPECIFIED HEARING LOSS, UNSPECIFIED EAR (7) Hypertension Status: Chronic Code(s): I10 - ESSENTIAL (PRIMARY) HYPERTENSION Qualifiers: Hypertension type: essential hypertension Qualified Code(s): I10 - Essential (primary) hypertension (8) IDDM (insulin dependent diabetes mellitus) Status: Chronic Code(s): E11.9 - TYPE 2 DIABETES MELLITUS WITHOUT COMPLICATIONS; Z79.4 - RESIDENTIAL (CURRENT) USE OF INSULIN Discussion: Date/Time: 07/10/18 0538 33yo @ 32.6 wks today 07/10 by 6.2 wk sono with White class F DM on insulin , cHTN (not on BP medication), and class III obesity presents for prolonged reactive NST and borderline JAY. Oligohydramnios -Borderline JAY 5.5 in clinic -BPP (07/08) 8/ with JAY 4.6. DVP >2cm. Umb artery doppler >50%. -BPP (07/09) JAY 4.1. DVP 2.01 -repeat JAY (07/09) JAY 7.25, DVP 2.6. DM White Class F -Home glucometer reading about 15 u higher -Continue QPM lantus 65 U -Continue 2hr postprandial glucose checks and fasting AM -continue baby aspirin daily -continue HH, CC diet cHTN with possible super-imposed Pre-eclampsia -patient had recent admission with migraines, was having severe range pressures - No severe range pressures noted. Pt had a few BP above 140. Pt meets criteria for pre-eclampsia at this time with elevated BP and elevated uric acid. -consider early delivery Mild dehydration -resolved UTI -cultures appear to be mixed korey, discontinue rocephin Anxiety/depression -Home fluoxetine Obesity Class III Hearing Loss right ear Chiari malformation Abnormal pap -ASCUS - will need follow up post- Addendum - Attending - Attending Attestation Date/Time: 07/10/18 1043 I personally evaluated the patient and discussed the management with Dr. Cuellar I agree with the History, Examination, Assessment and Plan documented above with any addition or exceptions noted below. 33 yo female at 32.4 wks by 6.2 wk sono with very high risk here for evaluation of low amniotic fluid and nonreactive NST. HERRERA: 08/29/18 HD#2 +FM. No LOF. No episodes of hypoglycemia. New machine to be tested today. Labs: 24 hour protein =1500 mg (01/12/18) --> 1080 (01/27/18) --> 225 mg (06/17/18) Cr = 0.52 --> 0.45 --> 0.59 --> 0.55 --> 0.58 --> 0.6 (06/18/18) --> 0.5 (07/08/18) AST = 17 (12/2017) --> 19 (01/2018) --> 22 --> 21 --> 29 --> 45 (06/18/18) --> 19 (07/08/18) PLT = 285 --> 299 --> 282 --> 220 --> 260 (steroids) --> 258 (steroids) Uric acid = 7.3 --> 7.3 --> 7.8 --> 7.7 (06/18/18) --> 6.5 (07/08/18) A1c = 10.7% (01/12/18) --> 6.2% (06/16/18) --> 5.2% (07/09/18) FLM steroids -- 06/18/18, 06/19/18 BPP: 8/8 (07/08), 8/8 (07/09) 1. sIUP: IOB labs reviewed. No NIPT. Anatomy reviewed (level II: normal stomach , kidneys, bladder, 3VC). ECHO WNL. Flu 01/2018. Tdap 06/2018. 3T negative. GBS negative (06/16/18) 2. cHTN: Normotensive to mild range but < 140/90. No medications. Continue ASA. Appears to have superimposed preeclampsia. Noted to have elevated BP above baseline, AST 45, CR 0.6, Uric acid 7.8 with increased frequency of headaches/ migraines. Admitted 06/17/18 for workup. Symptoms improved 3 days later. FLM steriods given due to risk. Has been discharged with close follow up. Plan to continue weekly labs, testing, TID home BP readings, weekly PCP visits. Has been following with M. 3. Class F, pregestational DM: No more episodes of hypoglycemia. Insulin adjusted. Will continue to hold premeals. Patient now with new glucometer. Will give short acting as needed. A1c down to 5.2%. Will need to keep goal of 6.5% due to hypoglycemia risk. NST reactive. MFM following and co-managing outpatient. Reviewed level II sono reports and ECHO. No concerns. Normal growth and dopplers. 4. BMI 47: Patient with metabolic syndrome and PCOS. Keep weight gain at most 15 lbs total. TSH (3.050 --> 0.948) WNL. Encourage breast feeding. 5. Migraine with aura and mild Chiari malformation: No issues since earlier this month. Has stopped ppx medications. 6. hx of childhood seizure disorder: Last seizure age 9. Initial seizure at age 5. Was on Tegretol up to age 11. Level II sono grossly normal anatomy. 7. MDD: On SSRI. Stable. 8. Childhood asthma: Resolved. 9. Family hx: CVA, CHD, HTN, DM, Thyroid dz, lung cancer, colon cancer 10. Chronic Sinus Tachycardia: Resolved. Patient reports a longstanding diagnosis but chart view does not support. Appears episodic at best. ECHO WNL. 11. Borderline JAY: Improved with hydration and improved glucose readings. Now WNLs. Will have patient follow up on Thursday for repeat testing and PCP visit. Dispo: Ok to d/c to home. Will call ([phone], ) over weekend to monitor glucose readings. Appointment scheduled for Thursday at [facility]. Precautions discussed. Vishal
[2018-07-10] MEDS ORDERED: Insulin Glargine 62 UNITS in Pre-Filled Syringe 1 EACH SC SCH (10:00)
--- NOTE | 2018-07-11 11:01 | PDOC.EVN ---
Event Note - Event Note Event Note: 07/11/18 at 11:00 Call to speak to patient about glucose readings. Left VM. Will call patient back later today. Vishal 07/11/18 at 1337 Spoke with patient. Still has not require short acting insulin. Has not been consistent on eating. Discussed risk due to hypoglycemia and patient not being aware due to lack of reported symptoms. Instructed patient must eat 3 meals with at least bedtime snack. Took 62 units of Lantus last night. 07/10: Dinner 2 hour = 126 07/11: fasting = 93, Did not eat breakfast. Dinner 2 hour = 119. Has appointment for testing on 07/13 at 11:00. Has appointment with PCP on 07/13 at 13:00. Has appointment with MFM on 07/14/18. Vishal
--- NOTE | 2018-07-12 14:07 | DIS ---
DATE OF ADMISSION: 07/08/2018 DATE OF DISCHARGE: 07/11/2018 RESIDENT: Carmen Cuellar MD ADMITTING ATTENDING: Neyda Ellison MD DISCHARGE ATTENDING: Neyda Ellison MD CONSULTS: None. PROCEDURES: 1. BPP on 07/08/18, BPP / with JAY of 4.6. Deepest pocket greater than 2 cm. Umbilical artery Doppler greater than 50%. Oligohydramnios. A single intrauterine gestation in cephalic presentation with heart tones documented. 2. BPP 07/09 showed an JAY of 4.1, deepest pocket 2.01. 3. Repeat bedside JAY 07/09, JAY of 7.25, deepest pocket of 2.6 cm. 4. Abdomen and pelvis ultrasound 07/08, biophysical profile, imaging of the stomach was performed and the stomach is distended with a normal sonographic appearance. PRIMARY DIAGNOSES: 1. Oligohydramnios ruled out. 2. Diabetes mellitus white class F. 3. Chronic hypertension with possible superimposed preeclampsia. SECONDARY DIAGNOSES: 1. Mild dehydration. 2. Anxiety and depression. 3. Obesity, class 3. 4. Hearing loss, right ear. 5. Chiari malformation. 6. Abnormal Pap. DISCHARGE MEDICATIONS: 1. Lantus 62 units subcutaneous at bedtime. 2. vitamin once daily. 3. Pyridoxine 100 mg p.o. daily. 4. Ranitidine 75 mg p.o. daily. 5. Fluoxetine 20 mg p.o. at bedtime. 6. Aspirin 81 mg p.o. daily. 7. Melatonin 3 mg p.o. at bedtime p.r.n. for insomnia. DISCONTINUED MEDICATIONS: 1. Lantus 65 units at bedtime. 2. Humalog subcutaneous with meals. HISTORY OF PRESENT ILLNESS/HOSPITAL COURSE: A 33-year-old, G4, P1111 at 32 and 4 weeks by 6.2 weeks sono presented with white class F diabetes mellitus, on insulin; chronic hypertension, not on BP medication; class 3 obesity, presented for prolonged reactive NST and decreasing JAY in clinic, JAY measured at 5.5 in clinic. The patient denied loss of fluid, vaginal bleeding or abnormal discharge. The patient reported good movement. The patient denied headache, vision changes, or chest pain. The patient does report slight shortness of breath that is chronic due to her weight. Of note, the patient also had a recent admission for stroke-like symptoms and was worked up for preeclampsia. Patient was admitted for borderline oligohydramnios , the patient had serial AFIs done. All 3 of the AFIs showed the deepest pocket greater than 2 cm. artery Dopplers were normal. Stomach, kidneys, and bladder were visualized on ultrasound. The last JAY done at the bedside showed an JAY of 7.25 with the deepest pocket being 2.6 cm. The patient's diabetes was closely monitored while she was here. Her medication regimen was changed to Lantus 62 units at night time. During the stay , Her home glucometer was reading about 15 units higher than 2 hospital glucometers. A new glucometer was prescribed with control solution and compared to a hospital glucometer and found to be accurate. Chronic hypertension. The patient's blood pressures were well controlled during her stay. She was noted to have one blood pressure above 140. Pre-Eclampsia. The patient does meet criteria for preeclampsia at this time with elevated blood pressure and elevated uric acid. However, no severe range of pressures are noted. The patient should consider early delivery secondary to her comorbidities. The patient was mildly dehydrated and given IV fluid. The patient is tolerating p.o. well at discharge. The patient was thought to have UTI based off of her UA clean-catch that was done. However, the cultures grew mixed skin korey and her antibiotics discontinued. For anxiety and depression, continue on home fluoxetine. The patient had an abnormal Pap outpatient that was ASCUS. The patient will need followup for that. DISPOSITION: Stable. DISCHARGE INSTRUCTIONS: 1. Location: Home. 2. Diet: Consistent carb, heart healthy. 3. Activity: As tolerated. 4. Followup: Follow up with PCP, Dr. Mal Vargas, within 3 days. Job ID: [id number] [facility]
== END 2018-07-10 11:39 | disposition home health service (06) ==
LOC: L&D/OP 13:23 → L&D 18:15
PROVIDERS: ADMIT Student in an Organized Health Care Education/Training Program; ATTEND Student in an Organized Health Care Education/Training Program
DX: O36.8330 Maternal care for abnormalities of the fetal heart rate or rhythm, third trimester, not applicable or unspecified (principal); O41.03X0 Oligohydramnios, third trimester, not applicable or unspecified; O99.213 Obesity complicating pregnancy, third trimester; O10.913 Unspecified pre-existing hypertension complicating pregnancy, third trimester; O99.343 Other mental disorders complicating pregnancy, third trimester; F41.9 Anxiety disorder, unspecified; F32.9 Major depressive disorder, single episode, unspecified; O99.89 Other specified diseases and conditions complicating pregnancy, childbirth and the puerperium; H91.90 Unspecified hearing loss, unspecified ear; O99.283 Endocrine, nutritional and metabolic diseases complicating pregnancy, third trimester; E28.2 Polycystic ovarian syndrome; E86.0 Dehydration; O99.353 Diseases of the nervous system complicating pregnancy, third trimester; G93.5 Compression of brain; O24.313 Unspecified pre-existing diabetes mellitus in pregnancy, third trimester; E11.9 Type 2 diabetes mellitus without complications; O23.43 Unspecified infection of urinary tract in pregnancy, third trimester; Z3A.32 32 weeks gestation of pregnancy; Z79.4 Long term (current) use of insulin; Z79.82 Long term (current) use of aspirin; Z79.899 Other long term (current) drug therapy
CPT/HCPCS: 36415; 36416; 59025; 76700; 76819; 80306; 81001; 83036; 84112; 84550; 87086; 96361; 96374; 96376; 99285; G0378; J0696; J1825; J3490

== ENCOUNTER 2018-08-01 16:43 | Day surgery (SDC) | payer OTHER ==
[2018-08-01 17:24] VITALS: BMI 47.2
--- NOTE | 2018-08-01 18:09 | ULT ---
EXAM: US Biophysical Profile PROVIDED CLINICAL HISTORY: Decreased movement. COMPARISON: 07/09/2018. FINDINGS: Again noted is a single intrauterine gestation in cephalic presentation. Cardiac Doppler demonstrates heart tones with a heart rate of 158 bpm. Subjectively, there does appear to be decrease in amniotic fluid volume. However, an amniotic fluid index of 14.5 cm was obtained. A score of 2 was obtained each for tone, breathing, movements, and amniotic fluid v olume. IMPRESSION: 1. Subjectively, there does appear to be a decrease in the amniotic fluid volume. However, an amnioti c fluid index of 14.5 cm was obtained. Amniotic fluid index on the prior study was calculated at 4.1 cm. 2. Total biophysical profile score of 8 out of 8.
--- NOTE | 2018-08-01 19:17 | PDOC.FPROB ---
FMR OB H&P: HPI - History of Present Illness Chief Complaint: Decrease FM Indentification: 33yo at 36wks by 6.2wk US History of Present Illness: 33yo at 36wks by 6.2wk US with White class F DM on Lantus insulin, cHTN, HLD presenting for decreased FM since last night. Typically more activity at night and last night denies any FM. She ate dinner at normal time as well as breakfast this morning. Denies LOF, VB, change in discharge or CTX. Denies HEAD, vision changes, edema, SOB. Primary Care Physician: Dr Mal Vargas FMR OB H&P: Current - Care : 1 Para: 0 Gestational age: 36wks Due date: 08/29/18 Dating Criteria: 6.2wk US - OB Labs Blood type: O RH: positive Antibody Screen: negative HIV: negative RPR: negative HepBsAg: negative Rubella: immune Urine drug screen: negative Gonorrhea: negative Chlamydia: negative Pap Smear: ASCUS with neg HPV on 01/19/2018 A1c: 6.2% on 06/18/18 GBS: negative H&H: 11.6 on 07/06 - First Trimester Ultrasound First trimester: 6.2wk US FMR OB H&P: History - Past Medical History PMH: DMII, cHTN, depression, HLD, Childhood asthma, seizure (last one age 11) - OB History OB History: White Class F DM on Lantus 60U qHS with recent fasting BG around 100 and PP 140. 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 - Family History Family History: Mother- lung cancer age 60 Father- colon cancer age 53 FMR OB H&P: Medications - Current Home Medications: Medication Instructions Recorded Confirmed Type Pnv No.95/Ferrous Fum/Folic AC 1 each PO DAILY 01/27/18 08/01/18 History [ Vitamin Tablet] pyridOXINE [Vitamin B 6] 100 mg PO DAILY 01/27/18 08/01/18 History FLUoxetine HCl [Prozac] 20 mg PO HS 06/17/18 08/01/18 History Ranitidine HCl [Zantac 75] 75 mg PO DAILY 06/17/18 08/01/18 History Aspirin [Ecotrin Low Strength] 81 mg PO DAILY #90 tab 06/22/18 08/01/18 Rx Melatonin 3 mg PO HS PRN tab 06/22/18 08/01/18 Rx Blood-Glucose Control, Normal 1 bot ONE #1 bot 07/10/18 08/01/18 Rx [Control Solution] Blood-Glucose Meter [One Touch 1 each ASDIR #1 kit 07/10/18 08/01/18 Rx Ultra 2 Glucose Meter] Insulin Glargine [Lantus Vial] 62 units SC HS vial 07/10/18 Rx Lancets [One Touch Delica Lancets] 1 box ASDIR #1 box 07/10/18 08/01/18 Rx Lancets [One Touch Delica Lancets] 2 box ASDIR #2 box 07/10/18 08/01/18 Rx Insulin Glargine [Lantus Vial] 60 units SC HS 08/01/18 08/01/18 History Allergies/Adverse Reactions: Allergies Allergy/AdvReac Type Severity Reaction Status Date / Time diphenhydramine Allergy Hives Verified 08/01/18 17:17 [From Benadryl] FMR OB H&P: ROS - Review of Systems General: denies: fever/chills, weight/appetite/sleep changes, fatigue FMR OB H&P: Physical Exam - Physical Exam General: NAD, awake, alert and oriented HEENT: normocephalic and atraumatic, MMM, conjunctiva clear, oropharynx clear Neck: supple, trachea midline Breast: non-tender Heart: RRR, no murmurs/rubs/gallops General: CTAB Abdomen: soft, gravid Deviation from normal: obese Musculoskeletal: normal gait and station, pulses present, no misalignment/ asymmetry, no atrophy FMR OB H&P: A/P Disposition: 33yo at 36wks by 6.2wk US presents for decreased FM sIUP - NST reactive - BPP 8/8, JAY 14.5 - Induction scheduled for 08/08 - F/u with PCP Discussion: Date/Time: 05/19/19 1917 This H&P was discussed with [] and [] who agree with the above documentation and plan. Addendum - Attending - Attending Attestation Date/Time: 08/02/18 0809 I personally evaluated the patient and discussed the management with Dr. Hernandez I agree with the History, Examination, Assessment and Plan documented above with any addition or exceptions noted below. Reactive NST and BPP 8/8 indicating wellbeing at this time. Induction scheduled for next week.
== END 2018-08-01 20:06 | disposition home or self-care (01) ==
LOC: L&D/OP 16:43
PROVIDERS: ATTEND Family Medicine
DX: O36.8130 Decreased fetal movements, third trimester, not applicable or unspecified (principal); O24.113 Pre-existing type 2 diabetes mellitus, in pregnancy, third trimester; E11.9 Type 2 diabetes mellitus without complications; O99.283 Endocrine, nutritional and metabolic diseases complicating pregnancy, third trimester; E78.5 Hyperlipidemia, unspecified; O10.913 Unspecified pre-existing hypertension complicating pregnancy, third trimester; O99.343 Other mental disorders complicating pregnancy, third trimester; F32.9 Major depressive disorder, single episode, unspecified; Z3A.36 36 weeks gestation of pregnancy; Z79.4 Long term (current) use of insulin; Z79.82 Long term (current) use of aspirin; Z79.899 Other long term (current) drug therapy; Z88.8 Allergy status to other drugs, medicaments and biological substances
CPT/HCPCS: 76819; 99282

== ENCOUNTER 2018-08-08 19:45 | Inpatient (IN) | payer OTHER ==
[2018-08-08 20:23] VITALS: BMI 45.6
[2018-08-08] MEDS ORDERED: Ibuprofen 800 MG TAB PO PRN (21:07)
[2018-08-08] MEDS ORDERED: Ondansetron PF 4 MG/2 ML Vial IVP PRN (21:07)
[2018-08-08] MEDS ORDERED: Butorphanol Tartrate 1 MG/ML VIAL SLOW IVP PRN (21:07)
[2018-08-08] MEDS ORDERED: Lidocaine 1% (PF) 30 ML VIAL SC PRN (21:07)
[2018-08-08] MEDS ORDERED: Promethazine HCl 25 MG/ML VIAL IM PRN (21:07)
[2018-08-08] MEDS ORDERED: NS / Oxytocin 40 units/1000ml 1,000 ML IV PRN (21:07)
[2018-08-08] MEDS ORDERED: hydrALAZINE 20 MG/ML VIAL SLOW IVP PRN (21:07)
[2018-08-08] MEDS ORDERED: Docusate 100 MG CAP PO PRN (21:07)
[2018-08-08] MEDS ORDERED: Misoprostol 200 MCG TAB PR PRN (21:07)
[2018-08-08] MEDS ORDERED: hydrALAZINE 20 MG/ML VIAL ONE (21:08)
--- NOTE | 2018-08-08 21:17 | PDOC.FPROB ---
FMR OB H&P: HPI - History of Present Illness Chief Complaint: DENIS IOL Indentification: History of Present Illness: 33yo at 37wks by 6.2wk US with White class F DM on Lantus insulin, cHTN, & HLD presenting for a DENIS IOL. Denies any LOF, VB, change in discharge or CTX. Denies any HEAD, vision changes, RUQ pain or SOB but does report worsening LE edema. Reports regular movement. Primary Care Physician: RONALD Vargas FMR OB H&P: Current - Care : 1 Para: 0 Gestational age: 37 weeks Due date: 08/29/18 Dating Criteria: 6.2 week sono Course/Complications: poorly controlled White class F GDM Class III obesity cHTN in - OB Labs Blood type: O RH: positive Antibody Screen: negative HIV: negative RPR: negative HepBsAg: negative Rubella: immune Gonorrhea: negative Chlamydia: negative A1c: 6.2 on 06/14/18 GBS: unknown FMR OB H&P: History - Past Medical History PMH: Chiari malformation type I Hearing loss, right ear DM Class F on insulin Obesity Class III Anxiety/depression chronic HTN asthma in childhood history of seizures in childhood age 11, likely clonic-tonic history of syncopal episodes many years ago - OB History OB History: none - 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 - Family History Family History: Mother- lung cancer age 60, thyroid disease, CHF Father - colon cancer age 52 Uncle, grandpa, and aunt with cancers as well FMR OB H&P: Medications - Current Home Medications: Medication Instructions Recorded Confirmed Type Pnv No.95/Ferrous Fum/Folic AC 1 each PO DAILY 01/27/18 08/08/18 History [ Vitamin Tablet] pyridOXINE [Vitamin B 6] 100 mg PO DAILY 01/27/18 08/08/18 History FLUoxetine HCl [Prozac] 20 mg PO HS 06/17/18 08/08/18 History Ranitidine HCl [Zantac 75] 75 mg PO DAILY 06/17/18 08/08/18 History Aspirin [Ecotrin Low Strength] 81 mg PO DAILY #90 tab 06/22/18 08/08/18 Rx Melatonin 3 mg PO HS PRN tab 06/22/18 08/08/18 Rx Blood-Glucose Control, Normal 1 bot ONE #1 bot 07/10/18 08/08/18 Rx [Control Solution] Blood-Glucose Meter [One Touch 1 each ASDIR #1 kit 07/10/18 08/08/18 Rx Ultra 2 Glucose Meter] Insulin Glargine [Lantus Vial] 62 units SC HS vial 07/10/18 08/08/18 Rx Lancets [One Touch Delica Lancets] 1 box ASDIR #1 box 07/10/18 08/08/18 Rx Lancets [One Touch Delica Lancets] 2 box ASDIR #2 box 07/10/18 08/08/18 Rx Allergies/Adverse Reactions: Allergies Allergy/AdvReac Type Severity Reaction Status Date / Time diphenhydramine Allergy Hives Verified 08/09/18 03:32 [From Benadryl] FMR OB H&P: ROS - Review of Systems General: denies: fever/chills, weight/appetite/sleep changes Eyes: denies: vision changes, floaters ENT: denies: nasal congestion, sore throat Cardiovascular: reports: edema. denies: chest pain, palpitation Respiratory: denies: cough, shortness of breath Gastrointestinal: denies: abdominal pain, nausea, vomiting, diarrhea, constipation Genitourinary (Female): denies: dysuria, hematuria, vaginal discharge, vaginal pain, vaginal bleeding, contractions, vaginal pressure Neurologic: denies: headache Psychological: reports: depression, anxiety FMR OB H&P: Vital Signs - Maternal Vital signs: Vital Signs - First Documented Temp Pulse Resp BP Pulse Ox 98.6 F 104 H 18 183/90 H 99 08/08/18 20:16 08/08/18 20:16 08/08/18 20:16 08/08/18 20:16 08/08/18 20:16 - Heart Tones Baseline: 140 Variability: moderate Acceleration: present Deceleration: absent [place] contractions every: no contractions noted FMR OB H&P: Physical Exam - Physical Exam General: NAD, awake, alert and oriented HEENT: normocephalic and atraumatic, grossly normal vision, grossly normal hearing Neck: supple, FROM Heart: RRR, normal S1/S2, other (pitting edema in B/L ankles) General: CTAB, no respiratory distress, good air movement, no rales/rhonchi, no wheezing, no retractions Abdomen: gravid, non-tender Musculoskeletal: normal gait and station, pulses present, FROM in all four extremities Neurological: cranial nerves II through XII intact, sensation to pain,touch and proprioception grossly normal, no focal deficit Skin: no rash, good tugor, capillary refill <2 seconds Lymphatic: no unusual bruising or bleeding, no purpura, no petechia Psychiatric: intact recent and remote memory, good judgement and insight, normal mood and affect - Pelvic Exam Vulva: normal hair distribution, appropriate jamison stage SVE: 2/60/-2 Hansen score: ~7 Membranes: intact Presentation: vertex FMR OB H&P: A/P - Problem List (1) Depression Status: Acute Code(s): F32.9 - MAJOR DEPRESSIVE DISORDER, SINGLE EPISODE, UNSPECIFIED (2) Diabetes Status: Acute Code(s): E11.9 - TYPE 2 DIABETES MELLITUS WITHOUT COMPLICATIONS Qualifiers: Diabetes mellitus type: type 2 Diabetes mellitus detention insulin use: without detention use (3) Hearing loss Status: Acute Code(s): H91.90 - UNSPECIFIED HEARING LOSS, UNSPECIFIED EAR (4) Intrauterine normal Status: Acute Code(s): Z34.90 - ENCNTR FOR SUPRVSN OF NORMAL , UNSP, UNSP TRIMESTER (5) Maternal diabetes mellitus in third trimester Status: Acute Code(s): O24.913 - UNSPECIFIED DIABETES MELLITUS IN , THIRD TRIMESTER (6) Obesity affecting in third trimester Status: Acute Code(s): O99.213 - OBESITY COMPLICATING , THIRD TRIMESTER (7) Hypertension Status: Chronic Code(s): I10 - ESSENTIAL (PRIMARY) HYPERTENSION Qualifiers: Hypertension type: essential hypertension Qualified Code(s): I10 - Essential (primary) hypertension Disposition: 33yo @ 37 wks by 6.2 wk sono with White class F DM on insulin, cHTN (not on BP medication), and class III obesity presents for DENIS IOL. sIUP High risk here for DENIS IOL - Patient scheduled to be induced today 2/2 DM & cHTN in ; however no recent weights have been obtained to assess for possible macrosomia. Will therefore order an U/S to get an EFW prior to initiating induction measures. If EFW <4500g will proceed with routine induction including IV pitocin and a possible balloon placement as first cervical check revealed a Hansen score of 7 @ ~2cm of dilation, 60% effacement and -2 station. DM class F - Continue home regimen of at 50% normal HS dose since patient is NPO. - Will continue accuchecks Q2H but can increase to Q4H if BG levels are well- controlled between 70-126 cHTN - Patient not on any HTN medications at home but initial BP significantly elevated at 177/94; however patient asymptomatic & this was also after multiple IV sticks. Will treat with IV hydralazine and recheck in 15 minutes. Will also order pre-e labwork to r/o pre-e with severe features including a CMP and Urine protein and creatinine to calculate a ratio. - Patient counseled to alert nursing staff should she develop and severe feature symptoms such as severe HEAD, blurry vision, RUQ pain, chest pain or SOB. Patient endorsed understanding. Anxiety/Depression - Will continue home fluoxetine. Obesity Class III - Aware, will encourage lifestyle changes. Hearing Loss right ear Chiari malformation Abnormal pap -ASCUS - will need follow up post- Discussion: Date/Time: 08/08/182116 This H&P was discussed with [] and [] who agree with the above documentation and plan. Addendum - Attending - Attending Attestation Date/Time: 08/09/18 816 I personally evaluated the patient and discussed the management with Dr. Keith at time of admission. See my separate note. I agree with the History, Examination, Assessment and Plan documented above with any addition or exceptions noted below.
[2018-08-08 21:24] LABS: Hemoglobin 11.6 g/dL (12.0-16.0); Mean Corpuscular HGB CONC 34.1 g/dL (32.0-36.0); Mean Corpuscular Hemoglobin 26.6 pg (27.0-31.0); Mean Corpuscular Volume 77.9 fL (78.0-98.0); Mean Platelet Volume 9.2 fL (7.4-10.4); Platelet Count 246 thou/uL (130-400); RBC Distribution Width 14.3 % (11.5-14.5); Red Blood Cell (RBC) Count 4.35 mill/uL (4.20-5.40); White Blood Cell (WBC) Count 14.5 thou/uL (4.8-10.8)
[2018-08-08 21:40] LABS: ALT (SGPT) 17 U/L (8-55); AST (SGOT) 31 U/L (5-34); Alkaline Phosphatase 71 U/L (40-150); Anion Gap 17 mmol/L (10-20); BUN (Urea Nitrogen) 11 mg/dL (7.0-18.7); Bilirubin, Total Less than 0.2 mg/dL (0.2-1.2); Calc. Creatinine Clearance 223 mL/min (70-130); Calcium 9.2 mg/dL (7.8-10.44); Carbon Dioxide 16 mmol/L (22-29); Chloride 106 mmol/L (98-107); Estimated GFR-MDRD Greater than 90; Globulin 3.2 g/dL (2.4-3.5); Glucose 182 mg/dL (70-105); Potassium 5.1 mmol/L (3.5-5.1); Protein, Total 6.2 g/dL (6.0-8.3); Sodium 134 mmol/L (136-145)
[2018-08-08] MEDS ORDERED: hydrALAZINE 20 MG/ML VIAL SLOW IVP SCH (21:45)
[2018-08-08] MEDS ORDERED: NS w/ Oxytocin 10 units 500 ML IV SCH (21:45)
[2018-08-08 21:57] LABS: Syphilis Antibody Nonreactive (Nonreactive); Syphilis Antibody Index 0.08 S/CO (<1.00 Non-Reactive)
[2018-08-08] MEDS ORDERED: Magnesium Sulfate 20 gm/500 ml 0 GM/0 ML BAG ONE (22:00)
[2018-08-08] MEDS ORDERED: HumaLOG 300 UNITS/3 ML VIAL SC SCH (22:15)
[2018-08-08] MEDS: Labetalol HCl 100 MG/20 ML VIAL SLOW IVP SCH (22:25)
[2018-08-08] MEDS ORDERED: Insulin Glargine 30 UNITS in Pre-Filled Syringe 1 EACH SC SCH (22:30)
--- NOTE | 2018-08-08 22:45 | PDOC.EVN ---
Event Note - Event Note Event Note: Date/Time: 08/08/18 7042 I personally evaluated the patient and discussed the management with Dr. Keith. H&P pending. I agree with the History, Examination, Assessment and Plan as discussed. Chronic HTN. HAs otn required meds during care. Some severely elevated BP at admission. meds administered timely. Continue to monitor. Pregestational type II DM. Long acting insulin reduced by half, and q2hour glucose monitoring with humalog SS initiated. Also complicated by morning obesity. Followed by MFM. Induction at 37 weeks advised. Ultrasound for estimated weight ordered, to inform induction planning. Current Hansen is 6. I favor balloon induction with pitocin if weight does not lead to planned . GBS was negative but longer that 5 weeks ago. Pt is GBS unknown.
[2018-08-08 22:52] LABS: HBSAg Index 0.33 S/CO (0-0.99); Hep B Surf Ag Non-Reactive S/CO (NonReactive)
[2018-08-08 23:14] LABS: Bilirubin Negative (Negative); Blood, Urine Negative (Negative); Clarity CLEAR (Clear); Glucose, Urine (Dipstick) Negative (Negative); Leukocyte Negative (Negative); Nitrite Negative (Negative); Protein, Urine (Dipstick) 30 mg/dL (Neg-Trace); Specific Gravity, Urine 1.021 (1.002-1.036); Urobilinogen 0.2 mg/dL (0.2-1.0)
[2018-08-08 23:17] LABS: Bacteria/HPF None Seen HPF (None Seen); Hyaline Casts/LPF 0-3 HYALINE CAST LPF (0-3 Hyaline); RBC/HPF 0-3 HPF (0-3); Squamous Epithelial 0-3 HPF (0-3); WBC/HPF 0-3 HPF (0-3)
[2018-08-08] MEDS: Misoprostol 100 MCG TAB VAG SCH (23:26)
[2018-08-08 23:31] LABS: Creatinine, Urine 106.27 mg/dL (47-110)
--- NOTE | 2018-08-08 23:36 | ULT ---
OB ULTRASOUND: HISTORY: Macrosomia. FINDINGS: Multiple longitudinal and transverse images of an intrauterine obtained using multi hertz c urvilinear transducer. Real-time and spectral waveform Doppler analysis demonstrates a viable intrauterine with the fetus in a cephalic presentation. Amniotic fluid index measures 9.1 cm. BIOMETRICS: Biparietal diameter: 90 mm 36 weeks 3 days Head circumference: 324 mm 36 weeks 5 days Abdominal circumference: 346 mm 38 weeks 3 days Femur length: 68 mm 34 weeks 6 days Composite age: 36 weeks 4 days Estimated date of delivery: 09/01/2018. Estimated weight: 3140 g +/- 465 g. Cardiac activity measures 145 bpm. IMPRESSION: Viable intrauterine . Transcribed Date/Time: 08/08/2018 11:50 PM
--- NOTE | 2018-08-09 00:42 | PDOC.OBLPN ---
FMR OB Labor PN: Subj - Interval History Hospital Day: 1 Chief Complaint: none Indentification: Interval History: EFW ~3600g w/ negative pre-e workup comparing to previous labs. BP now WNLs FMR OB Labor PN: Obj - Maternal Vital signs: BP: 134/94 Remaining vitals WNLs - Procedures Procedures: none Resuscitative measures: maternal IV fluids FMR OB Labor PN: Exam - Physical Exam General: NAD, awake, alert and oriented HEENT: normocephalic and atraumatic, grossly normal vision, grossly normal hearing Heart: RRR, normal S1/S2 General: no respiratory distress Abdomen: gravid Musculoskeletal: FROM in all four extremities Neurological: sensation to pain,touch and proprioception grossly normal, no focal deficit Skin: capillary refill <2 seconds - Pelvic Exam Vulva: normal hair distribution SVE: 3/80/-2 Membranes: intact Presentation: cephalic Estimated Weight: 7 lbs FMR OB Labor PN: Data - Labs Lab results: Laboratory Results - last 24 hr 08/08/18 08/08/18 08/08/18 20:47 20:47 20:47 WBC RBC Hgb Hct MCV MCH MCHC RDW Plt Count MPV Sodium Potassium Chloride Carbon Dioxide Anion Gap BUN Creatinine Estimated GFR (MDRD) Glucose POC Glucose Calcium Total Bilirubin AST ALT Alkaline Phosphatase Serum Total Protein Albumin Globulin Albumin/Globulin Ratio Urine Color Urine Clarity Urine pH Ur Specific [place] Urine Protein Urine Glucose (UA) Urine Ketones Urine Blood Urine Nitrite Urine Bilirubin Urine Urobilinogen Ur Leukocyte Esterase Urine RBC Urine WBC Ur Squamous Epith Cells Urine Bacteria Hyaline Casts U Random Total Protein Urine Creatinine Syphilis IgG/IgM Ab Nonreactive Hep Bs Antigen Non-Reactive Blood Type O POSITIVE Antibody Screen NEGATIVE 08/08/18 08/08/18 08/08/18 20:47 20:47 23:01 WBC 14.5 H RBC 4.35 Hgb 11.6 L Hct 33.9 L MCV 77.9 L MCH 26.6 L MCHC 34.1 RDW 14.3 Plt Count 246 MPV 9.2 Sodium 134 L Potassium 5.1 Chloride 106 Carbon Dioxide 16 L Anion Gap 17 BUN 11 Creatinine 0.74 Estimated GFR (MDRD) Greater than 90 Glucose 182 H POC Glucose Calcium 9.2 Total Bilirubin Less than 0.2 L AST 31 ALT 17 Alkaline Phosphatase 71 Serum Total Protein 6.2 Albumin 3.0 L Globulin 3.2 Albumin/Globulin Ratio 0.9 L Urine Color Urine Clarity Urine pH Ur Specific [place] Urine Protein Urine Glucose (UA) Urine Ketones Urine Blood Urine Nitrite Urine Bilirubin Urine Urobilinogen Ur Leukocyte Esterase Urine RBC Urine WBC Ur Squamous Epith Cells Urine Bacteria Hyaline Casts U Random Total Protein 35 H Urine Creatinine 106.27 Syphilis IgG/IgM Ab Hep Bs Antigen Blood Type Antibody Screen 08/08/18 08/08/18 23:01 23:22 WBC RBC Hgb Hct MCV MCH MCHC RDW Plt Count MPV Sodium Potassium Chloride Carbon Dioxide Anion Gap BUN Creatinine Estimated GFR (MDRD) Glucose POC Glucose 113 H Calcium Total Bilirubin AST ALT Alkaline Phosphatase Serum Total Protein Albumin Globulin Albumin/Globulin Ratio Urine Color YELLOW Urine Clarity CLEAR Urine pH 6.0 Ur Specific [place] 1.021 Urine Protein 30 H Urine Glucose (UA) Negative Urine Ketones Negative Urine Blood Negative Urine Nitrite Negative Urine Bilirubin Negative Urine Urobilinogen 0.2 Ur Leukocyte Esterase Negative Urine RBC 0-3 Urine WBC 0-3 Ur Squamous Epith Cells 0-3 Urine Bacteria None Seen Hyaline Casts 0-3 HYALINE CAST U Random Total Protein Urine Creatinine Syphilis IgG/IgM Ab Hep Bs Antigen Blood Type Antibody Screen - Imaging Imaging: US showed EFW of 3140 +/- 365g FMR OB Labor PN: A/P - Problem List (1) Depression Current Visit: No Status: Acute Code(s): F32.9 - MAJOR DEPRESSIVE DISORDER, SINGLE EPISODE, UNSPECIFIED (2) Diabetes Current Visit: No Status: Acute Code(s): E11.9 - TYPE 2 DIABETES MELLITUS WITHOUT COMPLICATIONS Qualifiers: Diabetes mellitus type: type 2 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 (3) Hearing loss Current Visit: No Status: Acute Code(s): H91.90 - UNSPECIFIED HEARING LOSS, UNSPECIFIED EAR (4) Intrauterine normal Current Visit: No Status: Acute Code(s): Z34.90 - ENCNTR FOR SUPRVSN OF NORMAL , UNSP, UNSP TRIMESTER (5) Maternal diabetes mellitus in third trimester Current Visit: No Status: Acute Code(s): O24.913 - UNSPECIFIED DIABETES MELLITUS IN , THIRD TRIMESTER (6) Obesity affecting in third trimester Current Visit: No Status: Acute Code(s): O99.213 - OBESITY COMPLICATING , THIRD TRIMESTER (7) Hypertension Current Visit: No Status: Chronic Code(s): I10 - ESSENTIAL (PRIMARY) HYPERTENSION Qualifiers: Hypertension type: essential hypertension Qualified Code(s): I10 - Essential (primary) hypertension Disposition: 33yo @ 37.1 wks by 6.2 wk elver with White class F DM on insulin, cHTN (not on BP medication), and class III obesity presents for DENIS IOL. sIUP High risk here for DENIS IOL - U/S showed an EFW of 3600g at the most so will proceed with induction. Attempted to place balloon but patient was dilated to 3cm at the time of placement so balloon did not remain in place. Patient was also effaced to ~80% so proceeded with pitocin drip for induction. Will repeat cervical check in ~3- 4 hours to assess labor progress. DM class F - Most recent accucheck down to 113 s/p 4U Humalog and 30U of lantus. Will continue checks Q2H but consider increasing intervals to Q4H if next accucheck between 70-120. Concern for pre-e superimposed on cHTN - Patient's BP slowly decreased to 134 systolic after only 15mg of hydralazine IV. Patient remains asymptomatic. Will resume routine vital checks and continue to monitor BP closely. -Pre-e labwork revealed a protein to creatinine ratio of 0.32 which is less than it has been previously. LFTs & platelets were WNLs. Therefore, no Mg was initiated as elevated BP likely just 2/2 uncontrolled cHTN. Anxiety/Depression - Will continue home fluoxetine. Obesity Class III - Aware, will encourage lifestyle changes. Hearing Loss right ear Chiari malformation Abnormal pap -ASCUS - will need follow up post- Discussion: Date/Time: 08/09/18 004 This H&P was discussed with Dr. Larry who agrees with the above documentation and plan.
[2018-08-09] MEDS: Lactated Ringer's 1,000 ML IV SCH ×4 (00:43→23:37)
[2018-08-09] MEDS: Labetalol HCl 100 MG/20 ML VIAL SLOW IVP SCH ×5 (00:56→13:22)
[2018-08-09] MEDS ORDERED: Lanolin Ointment 7 GM TUBE TOP PRN (01:19)
--- NOTE | 2018-08-09 01:48 | PDOC.EVN ---
Event Note - Event Note Event Note: reviewed Pre-E labs. While the prot/creat ratio is .32, it is lower than last month. Her labs are not consistent with PRe-E superimposed on cHTN. She has no symptoms of severe features. He Bp initially was severaly elevated but responded to hydralazine. Her overall clincal picture is not consistent with Pre-E superimposed on cHTN. Will continue to monitor. When we attempted to place balloon for induction we noted her cervix to be 3/80/-2, soft, midposition. Se ahsa favorable cervix. Estimated Weight is <4kg. Will proceed with pitocin induction.
[2018-08-09] MEDS ORDERED: Acetaminophen 500 MG TAB PO PRN (03:11)
[2018-08-09] MEDS: Misoprostol 100 MCG TAB VAG SCH ×3 (03:27→08:52)
[2018-08-09] MEDS: diphenhydrAMINE 50 MG/ML VIAL IVP SCH (03:33)
[2018-08-09] MEDS ORDERED: Fentanyl 4 mcg/Bup 0.1% Cadd 100 ML ONE ×2 (07:42→15:00)
--- NOTE | 2018-08-09 07:57 | PDOC.LDPN ---
Labor & Delivery Progress Note - Subjective Subjective: painful contractions, loss of fluid - Objective Abnormal vital signs: elevated BPs General: breathing through contractions Dilation: 6 Effacement: 75% (80) Station: -2 FHT: category 2 [place] contractions every: 3min IUPC placed: yes FSE placed: yes Plan: continue plan of care, labor augmentation, pitocin for augmentation -: 33yo @ 37.1 wks by 6.2 wk sono with White class F DM on insulin, cHTN (not on BP medication), and class III obesity presents for DENIS IOL. Term sIUP High risk , active labor - U/S showed an EFW of 3600g at the most so will proceed with induction - SROM at 0540, FSE and IUPC placed - Epidural placed - Cat II with one isolated late decel, resolved - SVE 0900 6/-2, CTX 2-3min originally which have now spaced out with epidural with MVUs <150. Will restart pitocin A2GDM class F - s/p 4 units lantus with admission POC 160s - Most recent accucheck 163, will give humalog 3units now -start q1hr checks since entering into active labor - if uncontrolled at next check, start insulin gtt - contine home lantus at half dose while in labor Concern for pre-e superimposed on cHTN -Pre-e labwork revealed a protein to creatinine ratio of 0.32, 0.44 at admission in early June and 0.5 on clinic last week -15 mg of hydralazine in total thus far -20mg of labetalol for severe pressures -Has had a few severe range pressures, asx. Labetalol PRN for goal of <160/<110 -Closely monitor blood pressures Anxiety/Depression - Hold home fluoxetine for now Obesity Class III - Aware, will encourage lifestyle changes. Hearing Loss right ear Chiari malformation Abnormal pap -ASCUS - will need follow up post- Discussed w/ Dr. Chiang Addendum - Attending - Attending Attestation Date/Time: 08/09/18 2664 I personally evaluated the patient and discussed the management with Dr. Mendez. I agree with the History, Examination, Assessment and Plan documented above with any addition or exceptions noted below.
[2018-08-09] MEDS ORDERED: HumaLOG 300 UNITS/3 ML VIAL SC ONE ×2 (09:19)
[2018-08-09] MEDS ORDERED: Bupivacaine 0.25% HCL 30 ML VIAL ONE (11:11)
[2018-08-09] MEDS ORDERED: HUMULIN R 100 UNITS in Sodium Chloride 0.9% 100 ML IVPB SCH (11:15)
--- NOTE | 2018-08-09 11:17 | PDOC.LDPN ---
Labor & Delivery Progress Note - Subjective Subjective: comfortable - Objective Abnormal vital signs: severe range pressure Dilation: 6 Effacement: 90% Station: -1 FHT: category 1 [place] contractions every: 2-5min Plan: continue plan of care, labor augmentation -: 33yo @ 37.1 wks by 6.2 wk sono with White class F DM on insulin, cHTN (not on BP medication), and class III obesity presents for DENIS IOL. Term sIUP High risk , active labor - U/S showed an EFW of 3600g at the most so will proceed with induction - SROM at 0540, FSE and IUPC placed - Epidural placed - Cat I strip - SVE 0900 7/90/-1, CTX 2-5 min, inadequate MVUs <200-250. Will inc. pitocin, recheck in 2 hrs A2GDM class F - s/p 4 units lantus with admission POC 160s - Most recent accucheck 163, will give humalog 3units now -start q1hr checks since entering into active labor - if uncontrolled at next check, start insulin gtt - contine home lantus at half dose while in labor Concern for pre-e superimposed on cHTN -Pre-e labwork revealed a protein to creatinine ratio of 0.32, 0.44 at admission in early June and 0.5 on clinic last week -15 mg of hydralazine in total thus far -20mg of labetalol for severe pressures -Has had a few severe range pressures, asx. Labetalol PRN for goal of <160/<110 -2 severe range pressure w/ SBP 160s, given labetalol x1 Anxiety/Depression - Hold home fluoxetine for now Obesity Class III - Aware, will encourage lifestyle changes. Hearing Loss right ear Chiari malformation Abnormal pap -ASCUS - will need follow up post- Addendum - Attending - Attending Attestation Date/Time: 08/09/18 1763 I personally evaluated the patient and discussed the management with Dr. Mendez. I agree with the History, Examination, Assessment and Plan documented above with any addition or exceptions noted below. As she has repeat need for antihypertensives I favor beginning mag for superimposed preeclampsia.
[2018-08-09] MEDS ORDERED: ePHEDrine/0.9% NaCl/PF SYRINGE 50 mg/10 ml SLOW IVP PRN (13:35)
[2018-08-09] MEDS ORDERED: Promethazine HCl 25 MG/ML VIAL IM PRN ×2 (13:35→20:21)
[2018-08-09] MEDS ORDERED: Acetaminophen 325 MG TAB PO PRN (13:35)
[2018-08-09] MEDS ORDERED: diphenhydrAMINE 50 MG/ML VIAL IVP PRN (13:35)
[2018-08-09] MEDS ORDERED: Naloxone HCl 0.4 mg/ml Vial IVP PRN ×4 (13:35→20:21)
[2018-08-09] MEDS ORDERED: Ondansetron PF 4 MG/2 ML Vial IVP PRN ×2 (13:35→20:21)
[2018-08-09] MEDS ORDERED: Lactated Ringer's 500 ML IV PRN (13:35)
[2018-08-09] MEDS ORDERED: Magnesium Sulfate 20 gm/500 ml 20 GM/500 ML BAG ONE (13:38)
[2018-08-09] MEDS ORDERED: Calcium Gluc 4.6 MEQ/10 ML (100 MG/ML) SLOW IVP PRN (13:40)
--- NOTE | 2018-08-09 13:44 | PDOC.LDPN ---
Labor & Delivery Progress Note - Subjective Subjective: comfortable, vaginal pressure - Objective Abnormal vital signs: several severe range pressures General: NAD, resting Dilation: 7 Effacement: 90% Station: -1 FHT: category 1 [place] contractions every: 2-5min Plan: continue plan of care, labor augmentation -: 33yo @ 37.1 wks by 6.2 wk sono with White class F DM on insulin, cHTN (not on BP medication), and class III obesity presents for DENIS IOL. Term sIUP High risk , active labor - U/S showed an EFW of 3600g at the most so will proceed with induction - SROM at 0540, FSE and IUPC placed - Epidural placed - Cat I strip - SVE 0900 /-1 unchnaged. CTX 2-5 min, inadequate MVUs <200-250. Will inc. pitocin, recheck in 2 hrs A2GDM class F - s/p 4 units lantus with admission POC 160s - Most recent accucheck 149, continue insulin gtt, q1hr accuchecks, titrate to scale -start q1hr checks since entering into active labor - contine home lantus at half dose while in labor Concern for pre-e superimposed on cHTN -Pre-e labwork revealed a protein to creatinine ratio of 0.32, 0.44 at admission in early June and 0.5 on clinic last week -15 mg of hydralazine in total thus far -20mg of labetalol for severe pressures -Has had a few severe range pressures, asx. Labetalol PRN for goal of <160/<110 -several severe range pressures, already requiring 100mg of labetalol in total. pt asx, however due to acute worsening of cHTN, there is concern for superimposed preeclampsia. Will start on magnesium -aggressive blood pressure control for <160/<110 -Mg checks Anxiety/Depression - Hold home fluoxetine for now Obesity Class III - Aware, will encourage lifestyle changes. Hearing Loss right ear Chiari malformation Abnormal pap -ASCUS - will need follow up post- Addendum - Attending - Attending Attestation Date/Time: 08/09/18 8280 I personally evaluated the patient and discussed the management with Dr. Mendez. I agree with the History, Examination, Assessment and Plan documented above with any addition or exceptions noted below. See my previous attestation.
[2018-08-09] MEDS ORDERED: Fentanyl 4 mcg/Bupivacaine 0.1% Cassette 100 ML EPIDURAL SCH (13:45)
[2018-08-09] MEDS ORDERED: Communication Order-Pharmacy FS SCH ×2 (13:45→20:30)
[2018-08-09] MEDS ORDERED: Magnesium Sulfate 20 GM/WATER 500 ML BAG IVPB SCH (13:45)
--- NOTE | 2018-08-09 15:52 | PDOC.LDPN ---
Labor & Delivery Progress Note - Subjective Subjective: comfortable, vaginal pressure - Objective Abnormal vital signs: elevated but no severe range pressures General: NAD, resting Dilation: 7 Effacement: 90% Station: -1 FHT: category 2 [place] contractions every: 2-5min Plan: continue plan of care -: 33yo @ 37.1 wks by 6.2 wk sono with White class F DM on insulin, cHTN (not on BP medication), and class III obesity presents for DENIS IOL. Term sIUP High risk , active labor - U/S showed an EFW of 3600g at the most so will proceed with induction - SROM at 0540, FSE and IUPC placed - Epidural placed - Cat II strip due to isolated variable - SVE 0900 7/-1 unchanged from last with adequate CTX for 2 hours - CTX 2-5 min, recheck in 2 hours A2GDM class F - s/p 4 units lantus with admission POC 160s - Most recent accuchecks <120, >80, insulin drip off -continue q1hr accuchecks, titrate insulin gtt to parameters discussed with nurse - contine home lantus at half dose while in labor Concern for pre-e superimposed on cHTN -Pre-e labwork revealed a protein to creatinine ratio of 0.32, 0.44 at admission in early June and 0.5 on clinic last week -has received 15mg hydralazine, 100mg labetalol, continue PRNs for parameters < 160/<110 - BPs since 1330: no severe range. PRN labetalol for parameters above - continue magnesium Anxiety/Depression - Hold home fluoxetine for now Obesity Class III - Aware, will encourage lifestyle changes. Hearing Loss right ear Chiari malformation Abnormal pap -ASCUS - will need follow up post- Addendum - Attending - Attending Attestation Date/Time: 08/09/18 2159 I personally evaluated the patient and discussed the management with Dr. Mendez. I agree with the History, Examination, Assessment and Plan documented above with any addition or exceptions noted below. Mag. PRN antihypertensives. Neurochecks/seizure precautions. Strict I&O's. No change, but previously inadequate MVUS. 6 hours without vs 4 hours with for indications of primary . Discuss with patient.
--- NOTE | 2018-08-09 15:54 | PDOC.EVN ---
Event Note - Event Note Event Note: Magnesium check @1530 Denies HEAD, vision changes, chest pain, issues breathing VS: BPs ranging in 130-140, no severe range pressures, high of 150 other vital signs stable UO: uncollected, discussed starting hourly collection to monitor for adequate UO (>30cc/hr) with nurse PE: CV-RRR Resp-CTAB [id number] Plan: Continue with magnesium for seizure prophylaxis
[2018-08-09] MEDS ORDERED: Ondansetron PF 4 MG/2 ML Vial ONE ×2 (16:57→19:03)
[2018-08-09] MEDS ORDERED: Lidocaine 2% PF 5 ML VIAL ONE (16:57)
--- NOTE | 2018-08-09 17:24 | PDOC.LDPN ---
Labor & Delivery Progress Note - Subjective Subjective: comfortable - Objective Vital signs reviewed and normal: yes (intermittent severe BP, came down immediately w/o treatment) General: resting Uterine fundus: non tender Dilation: 7 Effacement: 90% Station: -1 FHT: category 1 [place] contractions every: 2-4 minutes Other exam findings: Brachioradialis reflex 1+ on R, lungs CTAB - Assessment (1) Maternal diabetes mellitus in third trimester Code(s): O24.913 - UNSPECIFIED DIABETES MELLITUS IN , THIRD TRIMESTER Status: Acute (2) Obesity affecting in third trimester Code(s): O99.213 - OBESITY COMPLICATING , THIRD TRIMESTER Status: Acute (3) IDDM (insulin dependent diabetes mellitus) Code(s): E11.9 - TYPE 2 DIABETES MELLITUS WITHOUT COMPLICATIONS; Z79.4 - ASSISTED (CURRENT) USE OF INSULIN Status: Chronic (4) Chronic hypertension with superimposed pre-eclampsia Code(s): O11.9 - PRE-EXISTING HYPERTENSION WITH PRE-ECLAMPSIA, UNSP TRIMESTER Status: Ruled-out Plan: pitocin for augmentation -: 33yo @ 37.1 wks by 6.2 wk sono with White class F DM on insulin, cHTN (now with superimposed preE), and class III obesity presents for DENIS IOL. Term sIUP High risk , active labor - U/S showed an EFW of 3600g - SROM at 0540, FSE and IUPC placed - Epidural placed - Cat 1 strip at this time - SVE 7/90/-1 unchanged from last with adequate CTX - CTX 2-5 min, recheck in 1-2 hours A2GDM class F - s/p 4 units lantus with admission POC 160s - Most recent accuchecks <120, >80, insulin drip off - continue q1hr accuchecks, titrate insulin gtt to parameters discussed with nurse - contine home lantus at half dose while in labor Pre-e superimposed on cHTN - Pre-e labwork revealed a protein to creatinine ratio of 0.32, 0.44 at admission in early June and 0.5 on clinic last week - has received 15mg hydralazine, 100mg labetalol, continue PRNs for parameters > 160/110 - continue magnesium - UOP adequate, Mg checks q4 Anxiety/Depression - Hold home fluoxetine for now Obesity Class III - Aware Hearing Loss right ear Chiari malformation Abnormal pap -ASCUS - will need follow up post- Suspect cephalopelvic disproportion. Bedside sono revealed OT position. Discussed possibility of C/S with patient and she is agreeable if indicated. Will plan to recheck in approx 1 hour and make decision at that time. Addendum - Attending - Attending Attestation Date/Time: 08/10/18 5826 I personally evaluated the patient and discussed the management with Dr. Clarke at time of note creation. I agree with the History, Examination, Assessment and Plan documented above with any addition or exceptions noted below.
[2018-08-09] MEDS ORDERED: Azithromycin 500 MG in Sodium Chloride 0.9% 250 ML 250 ML IVPB SCH (18:30)
[2018-08-09] MEDS ORDERED: CEFAZOLIN 3 GM in Premix Bag 1 BAG IVPB SCH (18:30)
[2018-08-09] MEDS ORDERED: Bicitra 30 ML UDCUP PO SCH (18:30)
--- NOTE | 2018-08-09 18:42 | PDOC.EVN ---
Event Note - Event Note Event Note: Labor Progress Note S: Patient resting comfortable in bed without complaints. Epidural in place and effective. SROM occurred at approximately 0500 this morning. O: Vitals BP <140/90 with one severe range pressure since starting magnesium. SVE: 6/90/-1, markedly narrow pelvic outlet including abundant soft tissue in the distal portion of the vaginal canal. FHT: Category 1, Adequate MVU since 1330 today. I personally reviewed the FHT strip. A: 1. IOL for cHTN and type F DM2, uncontrolled 2. Failure to dilate with adequate MVU 3. cephalopelvic disproportion. P: After an extensive conversation with the patient regarding further management of her labor, the patient has elected to proceed with . I discussed risks of continued labor augmentation including distress and need for urgent/emergent . Risks of were also discussed including hemorrhage, need for blood products, and post operative pain/ infections. Will give preoperative antibiotics of ancef 3g and azithromycin 500 mg. Anesthesia notified. Case discussed with Dr. Larry present in the room.
[2018-08-09] MEDS ORDERED: Lidocaine 2% 10 ML INJ ONE ×2 (19:03)
[2018-08-09] MEDS ORDERED: Oxytocin 10 UNITS/ML VIAL ONE (19:03)
[2018-08-09] MEDS ORDERED: Misoprostol 200 MCG TAB ONE (19:42)
[2018-08-09] MEDS ORDERED: Carboprost 250 MCG/ML AMP ONE (19:42)
[2018-08-09] MEDS ORDERED: MORPHINE 5 MG/10 ML PF VIAL ONE (19:55)
[2018-08-09] MEDS ORDERED: Bupivacaine/Epinephrine 0.5% 10 ML VIAL ONE (20:07)
[2018-08-09 20:13] LABS: Base Excess (BEa) -4.2 mEq/L (-2.0 to +3.0)
[2018-08-09 20:16] LABS: Actual Bicarbonate (HCO3v) 23 mEq/L (22-28); Base Excess -4.6 mEq/L (-2.0 to +3.0); pH (Cord, venous) 7.28 (7.32-7.43)
[2018-08-09] MEDS ORDERED: Promethazine HCl 25 MG SUPP PR PRN (20:21)
[2018-08-09] MEDS ORDERED: Ketorolac Tromethamine 30 MG/ML VIAL IVP PRN (20:21)
[2018-08-09] MEDS ORDERED: Naloxone HCl 0.4 mg/ml Vial IV PRN (20:21)
[2018-08-09] MEDS ORDERED: Ondansetron HCl/PF 4 MG/2 ML Vial IVP PRN (20:22)
[2018-08-09] MEDS ORDERED: L&D-Morphine 4 MG/ML VIAL SLOW IVP PRN (20:22)
[2018-08-09] MEDS ORDERED: HYDROmorphone 2 MG/ML VIAL SLOW IVP PRN (20:22)
[2018-08-09] MEDS ORDERED: Ketorolac Tromethamine 30 MG/ML VIAL IVP SCH (20:30)
[2018-08-09] MEDS ORDERED: Insulin Glargine 30 UNITS in Pre-Filled Syringe 1 EACH SC SCH (21:00)
[2018-08-09] MEDS ORDERED: Misoprostol 200 MCG TAB PR PRN (21:52)
[2018-08-09] MEDS: Magnesium Sulfate 20 gm/500 ml 20 GM/500 ML BAG IVPB SCH (21:54)
[2018-08-09] MEDS ORDERED: Carboprost 250 MCG/ML AMP IM PRN (21:58)
[2018-08-09] MEDS ORDERED: Melatonin 3 MG TAB PO PRN (21:58)
[2018-08-09] MEDS ORDERED: Insulin Glargine 15 UNITS in Pre-Filled Syringe 1 EACH SC SCH (22:30)
[2018-08-09] MEDS ORDERED: Meperidine HCl/PF 25 MG/ML VIAL ONE (22:44)
[2018-08-09] MEDS: Meperidine HCl/PF 25 MG/ML VIAL SLOW IVP PRN (23:05)
[2018-08-10] MEDS ORDERED: Meperidine HCl/PF 25 MG/ML VIAL ONE (00:44)
--- NOTE | 2018-08-10 00:44 | OP ---
DATE OF PROCEDURE: 08/09/2018 RESIDENT SURGEON: Storm Gibson DO SHIRT LINE OPERATOR SURGEON: Mal Vargas MD ATTENDING SURGEON: Jaime Larry MD PROCEDURE PERFORMED: Primary low-transverse section. PREOPERATIVE DIAGNOSES: 1. Term intrauterine . 2. Chronic hypertension with superimposed preeclampsia. 3. White class F diabetes mellitus. 4. Morbid obesity. 5. Chronic migraines. 6. Chiari 1 malformation. 7. Asthma. 8. Remote history of seizures. 9. Arrest of labor. POSTOPERATIVE DIAGNOSES: 1. Term intrauterine , delivered. 2. hemorrhage, hemodynamically stable. 3. Chronic hypertension with superimposed preeclampsia. 4. White class F diabetes mellitus. 5. Morbid obesity. 6. Chronic migraines. 7. Chiari 1 malformation. 8. Asthma. 9. Remote history of seizures. 10. Arrest of Labor. ANESTHESIA: Epidural. QUANTITATIVE BLOOD LOSS: 1550 mL. COUNTS: Correct x3. INDICATIONS: Ms. Sheriff is a pleasant 33-year-old 1, para 0, at 37.1 weeks, who presented for induction of labor indicated for chronic hypertension and White class F diabetes mellitus requiring insulin. Approximately 12 hours into her induction, her blood pressures became persistently elevated in the severe range, prompting the diagnosis of superimposed preeclampsia and requiring IV magnesium. The patient had internal monitors placed at approximately 11:00 a.m. on the date of the procedure. She had adequate intrauterine pressure for approximately 5 hours, however, she failed to make any further cervical change. On exam, she was noted to have a narrow pelvic outlet and considerable amount of tissue in the distal portion of her vaginal canal. There was also concern for malpositioning of the head. Given the fact that the patient had not made any significant cervical change for over 4 hours, it was felt that she would not likely have a successful vaginal delivery. Long discussion was had with the patient regarding options to proceed forward. After counseling her on the risks and benefits of continued augmentation of labor versus proceeding with primary section, she elected to proceed with primary section. PROCEDURE IN DETAIL: The patient provided an informed consent after risks, benefits, and alternatives were explained. She was taken to the operating room and her epidural was bolused. She received preoperative antibiotics of Ancef 3 g IV push and azithromycin 500 mg IV piggyback. She was placed on the operating table in the supine position with left lateral tilt and prepped and draped in the usual sterile fashion. A Pfannenstiel incision was made with a scalpel, which was carried down in the midline both sharply and bluntly. The fascia was identified and sharply nicked on both sides of the midline. Subcutaneous fat was dissected away from the fascia and the fascial incision was extended both bluntly and sharply in the superolateral curvilinear fashion. Belinda clamps were used to elevate the superior and inferior edges of the fascia from the underlying rectus muscle, which were sharply and bluntly dissected away from the fascia. The rectus muscles were divided digitally and retracted manually. The peritoneum was entered bluntly and manually retracted. At this time, a large amount of omentum was noted to be blocking the surgical field. Two wet laparotomy sponges were placed to internally retract the omentum and bowel. Keny O retractor was then placed into the abdomen, providing optimal visualization of the lower uterine segment. Again, the bowel and omentum were noted to be encroaching on the view of the lower segment, so 2 additional wet laparotomy sponges were placed to internally retract the bowel and omentum. The lower uterine segment was palpated and identified and a clean scalpel was used to make a low-transverse hysterotomy. Hysterotomy was carried down sharply in the midline and the [employer] suction tip was used to bluntly enter the uterine cavity. The hysterotomy was then extended in the caudocranial fashion. The infant was initially noted to be in the left occiput transverse position and was then rotated into the occiput posterior position before the head was elevated to the level of hysterotomy and the infant was delivered through with fundal pressure. The infant was noted to not be vigorously crying, so the cord was immediately cut and clamped and the infant was taken to the awaiting resuscitative team. Cord gas segment was obtained at this time and showed an arterial pH of 7.205 with a base excess of -4.2 at the time of delivery. Cord blood was also collected and sent for analysis. The placenta was then manually extracted using fundal pressure and the apices and lower uterine segment were identified with ring forceps. Two dry laparotomy sponges were used to curette the uterine fundus and lower uterine segment. A 0 Monocryl suture was used for the primary hysterotomy closure in the running locking fashion. A 2nd imbricating layer was run in the running locking fashion as well. Both apices were noted to have bleeding and several [id number] sutures were applied to both apices to provide adequate hemostasis using 0 monocryl and 3-O Chromic. Bovie cautery was utilized to address any bleeding serosal edges. Hysterotomy was inspected and noted to be hemostatic. Keny O retractor was removed and a bladder blade and [place] retractor were used to visualize the lower uterine segment one final time. It was noted to be hemostatic. All laparotomy sponges were removed from the abdomen at this time. The perineum was closed using a 3-0 chromic in the running nonlocking fashion. The rectus muscles were inspected one final time and noted to be hemostatic. The fascia was reapproximated using a 0 PDS suture in the running nonlocking fashion. Subcutaneous tissue was irrigated and all bleeding vessels were addressed with the Bovie cautery. Subcutaneous tissue was reapproximated using a 2-0 plain gut suture in a running nonlocking fashion. Skin was reapproximated with saeid and a Prevena wound management system was placed over the skin incision. Counts were correct x3. The patient was taken back to labor and delivery unit for routine recovery and care and magnesium, which will need to be run for at least 24 hours pending the patient's blood pressures. The infant was taken to the regular nursery for routine observation and transition to life. FINDINGS: 1. Grossly normal placenta with three-vessel cord, sent to Pathology. 2. Grossly normal-appearing female born at 1930 hours with Apgars of 6 and 8 at 1 and 5 minutes respectively. 3. Gilliam catheter draining blood-tinged urine preoperatively and postoperatively. Dr. Larry was present for the entire procedure. Job ID: [id number] [facility]
[2018-08-10] MEDS: Meperidine HCl/PF 25 MG/ML VIAL SLOW IVP PRN (00:50)
--- NOTE | 2018-08-10 01:20 | PDOC.EVN ---
Event Note - Event Note Event Note: Mg Check:
--- NOTE | 2018-08-10 01:24 | PDOC.EVN ---
Event Note - Event Note Event Note: 4 hour post-op note and Mg check @ 0115 Subjective: Patient resting in bed with no complaints other than some mild pain around her incision site now that her anesthesia is starting to wear off. Denies any fever/chills, HEAD, vision changes, chest pain, SOB. lightheadedness, or heavy vaginal bleeding. Also states she has been tolerating liquids well since delivery. Objective: VS: BPs ranging in 150s-110s, no severe range pressures, high of 151, slightly tachycardic @ 108, other vitals stable UO: 600, 250, & 300cc over the last 3 hours. Will continue to monitor for adequate UO (>30cc/hr). PE: CV-slightly tachycardic but regular rhythm Resp-CTAB Reflexes- 2+ in B/L upper and lower extremities Abdomen- appropriately tender with wound vac in place over incision site - moderate amount of blood on jim pad but no large clots or active, brisk bleeding noted Assessment: 33yo G1 now P1 day #1 s/p primary LTCS @ 37.1 wks for failure of dilation. Plan: day #1 s/p primary LTCS - Will continue routine PP care including DENIS ibuprofen & PRN [place] for pain control. - Will consult business sales consultant since patient is a first-time mom wanting to breastfeed. - Will not advance beyond clear liquids overnight as patient is on Mg. PPH: - QBL of 1500mL s/p C/S with post-section blood loss of ~400 since being on the floor. BPs no lower than 100s systolic with highest HR of 108 & patient remains asymptomatic. - Will check an AM hemagram but have low threshold for getting one sooner should patient become symptomatic. Will continue to monitor vitals closely. A2GDM class F - Will continue q2hr accuchecks & start on moderate SSI for coverage overnight with goal to keep BG levels <150. Want tight glucose control 2/2 increased risk of post-op wound infection given DMII and obesity. - Will likely resume full DENIS lantus tomorrow HS once patient is able to eat following discontinuation of Mg. Pre-e superimposed on cHTN - Pre-e labwork revealed a protein to creatinine ratio of 0.32, 0.44 at admission in early June and 0.5 on clinic last week. However, patient continued to have persistent severe range pressures yesterday afternoon so the decision was made to start on Mg therapy for suspected pre-e superimposed on cHTN. - Will continue magnesium for 24 hours post delivery & continue to monitor for severe range pressures. - UOP adequate, Mg checks q4. Anxiety/Depression - Hold home fluoxetine for now. Obesity Class III - Aware, will encourage lifestyle changes. Hearing Loss right ear Chiari malformation Abnormal pap -ASCUS - will need follow up post- Will start on moderate SSI for BG coverage overnight & continue Q4H Mg checks until ~19:30 today.
[2018-08-10] MEDS ORDERED: HumaLOG 300 UNITS/3 ML VIAL SC SCH (01:30)
[2018-08-10] MEDS ORDERED: Dextrose 50% Abboject 50 ML SYRINGE SLOW IVP PRN (02:59)
[2018-08-10] MEDS ORDERED: Dextrose 5% in Water 1,000 ML IV PRN (02:59)
[2018-08-10] MEDS: HumaLOG 300 UNITS/3 ML VIAL SC PRN ×2 (03:13→11:40)
--- NOTE | 2018-08-10 03:45 | PDOC.EVN ---
Event Note - Event Note Event Note: Magnesium check @ 0500 Denies HEAD, vision changes, chest pain, issues breathing VS: BPs ranging in 130-140, no severe range pressures, high of 150 other vital signs stable UO: uncollected, discussed starting hourly collection to monitor for adequate UO (>30cc/hr) with nurse PE: CV-RRR Resp-CTAB [id number] Plan: Continue with magnesium for seizure prophylaxis
[2018-08-10 06:45] LABS: Hemoglobin 10.6 g/dL (12.0-16.0); Mean Corpuscular HGB CONC 33.4 g/dL (32.0-36.0); Mean Corpuscular Hemoglobin 26.5 pg (27.0-31.0); Mean Corpuscular Volume 79.4 fL (78.0-98.0); Mean Platelet Volume 8.5 fL (7.4-10.4); Platelet Count 236 thou/uL (130-400); RBC Distribution Width 14.7 % (11.5-14.5); White Blood Cell (WBC) Count 20.5 thou/uL (4.8-10.8)
[2018-08-10] MEDS ORDERED: Ketorolac Tromethamine 30 MG/ML VIAL ONE (07:07)
--- NOTE | 2018-08-10 07:39 | PDOC.PP ---
Post Progress Note Post Day #: 1 Subjective: Resting in bed comfortably. No concerns. States she has some moderate pain with movement but otherwise pain is controlled. No narcotics used at this point. Urine output 150-200 mL/hr. PO intake tolerated: yes Flatus: no Ambulation: no Weight Weight 128.367 kg - Physical Examination General: NAD Cardiovascular: no m/r/g, RRR Respiratory: clear to auscultation bilaterally, non-labored breathing Abdominal: lochia, no distention, appropriately TTP Fundus firm & at: below umbilicus Extremities: negative homans (B) Skin: CS incision dry & intact, no rash Neurological: no gross focal deficits Psychiatric: A&Ox3, normal affect Result Diagrams: 08/10/18 06:28 08/08/18 20:47 Additional Labs: Post Labs Blood Type O POSITIVE 08/08/18 20:47 Hep Bs Antigen Non-Reactive S/CO (NonReactive) 08/08/18 20:47 (1) Anxiety Code(s): F41.9 - ANXIETY DISORDER, UNSPECIFIED Status: Acute (2) Depression Code(s): F32.9 - MAJOR DEPRESSIVE DISORDER, SINGLE EPISODE, UNSPECIFIED Status : Acute Qualifiers: Depression Type: unspecified Qualified Code(s): F32.9 - Major depressive disorder, single episode, unspecified (3) Intrauterine normal Code(s): Z34.90 - ENCNTR FOR SUPRVSN OF NORMAL , UNSP, UNSP TRIMESTER Status: Acute (4) Migraine Code(s): G43.909 - MIGRAINE, UNSP, NOT INTRACTABLE, WITHOUT STATUS MIGRAINOSUS Status: Acute Qualifiers: Migraine type: unspecified Status migrainosus presence: without status migrainosus Intractability: not intractable Qualified Code(s): G43.909 - Migraine, unspecified, not intractable, without status migrainosus (5) Obesity Code(s): E66.9 - OBESITY, UNSPECIFIED Status: Acute (6) Hypertension Code(s): I10 - ESSENTIAL (PRIMARY) HYPERTENSION Status: Chronic Qualifiers: Hypertension type: essential hypertension Qualified Code(s): I10 - Essential (primary) hypertension (7) IDDM (insulin dependent diabetes mellitus) Code(s): E11.9 - TYPE 2 DIABETES MELLITUS WITHOUT COMPLICATIONS; Z79.4 - SKILLED NURSING (CURRENT) USE OF INSULIN Status: Chronic (8) Chronic hypertension with superimposed pre-eclampsia Code(s): O11.9 - PRE-EXISTING HYPERTENSION WITH PRE-ECLAMPSIA, UNSP TRIMESTER Status: Ruled-out - Assessment/Plan 1. Postparutm care: post op day 1: pain controlled. Will advance to clear liquid diet while still on magnesium. DENIS NSAIDs with PRN opiates. Will need to start on prophylactic lovenox 12 hr after epidural removed for DVT PPx. Check anti 10a level to titrate appropriate dosing. Breast feeding well. 2. cHTN with superimposed Preeclampsia: continue IV mag until 1930 today. q4hr checks. BP well controlled. No severe range pressures since yesterday afternoon. 3. IDDM: restart metformin. continue lantus and SSI will space out accuchecks to q4hr. Once eating again and switch to ACHS. 4. Anxiety: restarted prozac last night. 5. Hx migraine: no headaches at this time. 6. Hx Sinus tachycardia: pulse WNL. consider restarting beta herman. PP contraception: will discuss tomorrow. Addendum - Attending - Attending Attestation Date/Time: 08/10/18 1102 I personally evaluated the patient and discussed the management with Dr. Vargas. I agree with the History, Examination, Assessment and Plan documented above with any addition or exceptions noted below. Patient doing wonderfully, no severe symptoms, exam continues to be unremarkable. BP's improved, adequate UOP. Continue mag/seizure prec/ neurochecks x 24h pp then d/c. Strong consideration for dvt ppx in light of RF.
[2018-08-10] MEDS ORDERED: HYDROcodone/Acetaminophen 5/325 mg Tablet PO PRN (08:00)
[2018-08-10] MEDS: metFORMIN 500 MG TAB PO SCH ×2 (08:12→23:18)
[2018-08-10] MEDS: Ferrous Sulfate 325 MG TAB PO SCH ×2 (08:12→23:17)
[2018-08-10] MEDS: Lactated Ringer's 1,000 ML IV SCH ×3 (08:13→23:26)
[2018-08-10] MEDS: Docusate Calcium (SURFAK) 240 MG CAP PO SCH ×2 (08:13→23:26)
[2018-08-10] MEDS: Magnesium Sulfate 20 gm/500 ml 20 GM/500 ML BAG IVPB SCH ×2 (08:31→18:46)
[2018-08-10] MEDS: Famotidine 20 MG TAB PO SCH (11:25)
[2018-08-10] MEDS ORDERED: Insulin Regular 300 UNITS/3 ML VIAL ONE (11:38)
--- NOTE | 2018-08-10 12:47 | PDOC.EVN ---
Event Note - Event Note Event Note: Magnesium check: S: Pt denies HEAD, breathing problems, lower extremity swellling VS: BPs- all within normal range <140/<90, no requirement of PRN antihypertensives UO: >30cc/hr, diuresing well PE: CV: RRR Resp: CTAB Neuro: Awake, alert, A&O x3, reflexes 2+ A/P 1. Continue magnesium at 2mg for seizure prophlaxis until 1929 2. Continue monitoring BPs, PRN antihypertensives on board 3. Continue monitoring UO, adequate diuresing
--- NOTE | 2018-08-10 18:18 | PDOC.EVN ---
Event Note - Event Note Event Note: Magnesium check @ 1700 S: Pt denies HEAD, breathing problems, lower extremity swellling VS: BPs- all within normal range <140/<90, no requirement of PRN antihypertensives UO: >30cc/hr per nurse report PE: CV: RRR Resp: CTAB Neuro: Awake, alert, A&O x3, reflexes 2+ A/P 1. Continue magnesium at 2mg for seizure prophlaxis until 193 2. Continue monitoring BPs, PRN antihypertensives on board 3. Continue monitoring UO, adequate diuresing Addendum - Attending - Attending Attestation Date/Time: 08/11/18 0818 I personally evaluated the patient and discussed the management with Dr. Mendez on 08/10. I agree with the History, Examination, Assessment and Plan documented above with any addition or exceptions noted below.
[2018-08-10] MEDS: HYDROcodone/Acetaminophen 5/325 mg Tablet PO PRN (18:36)
--- NOTE | 2018-08-10 19:48 | PDOC.EVN ---
Event Note - Event Note Event Note: Patient reports pain under wound site. Reviewed vitals: afebrile but recently tachycardic. WBC this morning is up to 20K. No fever noted, but in light of internal monitors in the intrapartum care with arrest of labor, I suspect post- endometritis is developing. Will start empiric antibiotic therapy. CBC in AM.
[2018-08-10] MEDS ORDERED: Enoxaparin Sodium 40 MG/0.4 ML SYRINGE SC SCH (21:00)
[2018-08-10] MEDS ORDERED: Insulin Glargine 15 UNITS in Pre-Filled Syringe 1 EACH SC SCH (21:00)
[2018-08-10] MEDS: FLUoxetine HCl 20 MG CAP PO SCH (21:39)
[2018-08-10] MEDS: Enoxaparin Sodium 40 MG/0.4 ML SYRINGE SC SCH (21:39)
[2018-08-10] MEDS: Prenatal Vitamin 1 TAB PO SCH (23:17)
[2018-08-10] MEDS: diphenhydrAMINE 50 MG/ML VIAL IVP SCH (23:32)
[2018-08-11] MEDS: Ampicillin/Sulbactam 3 GM in Sodium Chloride 0.9% 100 ML IVPB SCH ×5 (00:24→23:02)
[2018-08-11] MEDS: Simethicone Chewable 80 MG TAB PO PRN ×2 (00:29→11:21)
[2018-08-11] MEDS: HYDROcodone/Acetaminophen 5/325 mg Tablet PO PRN ×5 (00:29→23:02)
[2018-08-11] MEDS: HumaLOG 300 UNITS/3 ML VIAL SC PRN (04:35)
[2018-08-11] MEDS: Lactated Ringer's 1,000 ML IV SCH (04:42)
[2018-08-11] MEDS: Ibuprofen 800 MG TAB PO SCH ×3 (05:19→21:05)
[2018-08-11 06:16] LABS: Mean Corpuscular HGB CONC 31.9 g/dL (32.0-36.0); Mean Corpuscular Hemoglobin 25.6 pg (27.0-31.0); Mean Corpuscular Volume 80.1 fL (78.0-98.0); Mean Platelet Volume 8.2 fL (7.4-10.4); Platelet Count 225 thou/uL (130-400); RBC Distribution Width 14.5 % (11.5-14.5); Red Blood Cell (RBC) Count 3.52 mill/uL (4.20-5.40); White Blood Cell (WBC) Count 14.5 thou/uL (4.8-10.8)
--- NOTE | 2018-08-11 07:25 | PDOC.PP ---
Post Progress Note Post Day #: 2 Subjective: Pain controlled. well. Feels she is not making enough milk. Discussed normal progression of . PO intake tolerated: yes Flatus: yes Ambulation: yes Vital Signs (12 hours) Temp Pulse Resp BP Pulse Ox 08/11/18 04:20 98.6 F 113 H 20 136/78 08/10/18 23:15 98.2 F 108 H 24 H 141/71 H 98 Weight Weight 128.367 kg - Physical Examination General: NAD Cardiovascular: no m/r/g, RRR Respiratory: clear to auscultation bilaterally, non-labored breathing Abdominal: + bowel sounds, no distention, appropriately TTP Fundus firm & at: not palpable. Extremities: negative homans (B) Skin: CS incision dry & intact (no drainaged in vacuum container), no rash Neurological: no gross focal deficits Psychiatric: A&Ox3, normal affect Result Diagrams: 08/11/18 06:02 08/08/18 20:47 Additional Labs: Post Labs Blood Type O POSITIVE 08/08/18 20:47 Hep Bs Antigen Non-Reactive S/CO (NonReactive) 08/08/18 20:47 (1) Anxiety Code(s): F41.9 - ANXIETY DISORDER, UNSPECIFIED Status: Acute (2) Depression Code(s): F32.9 - MAJOR DEPRESSIVE DISORDER, SINGLE EPISODE, UNSPECIFIED Status : Acute Qualifiers: Depression Type: unspecified Qualified Code(s): F32.9 - Major depressive disorder, single episode, unspecified (3) Intrauterine normal Code(s): Z34.90 - ENCNTR FOR SUPRVSN OF NORMAL , UNSP, UNSP TRIMESTER Status: Acute (4) Migraine Code(s): G43.909 - MIGRAINE, UNSP, NOT INTRACTABLE, WITHOUT STATUS MIGRAINOSUS Status: Acute Qualifiers: Migraine type: unspecified Status migrainosus presence: without status migrainosus Intractability: not intractable Qualified Code(s): G43.909 - Migraine, unspecified, not intractable, without status migrainosus (5) Obesity Code(s): E66.9 - OBESITY, UNSPECIFIED Status: Acute (6) Hypertension Code(s): I10 - ESSENTIAL (PRIMARY) HYPERTENSION Status: Chronic Qualifiers: Hypertension type: essential hypertension Qualified Code(s): I10 - Essential (primary) hypertension (7) IDDM (insulin dependent diabetes mellitus) Code(s): E11.9 - TYPE 2 DIABETES MELLITUS WITHOUT COMPLICATIONS; Z79.4 - [facility] (CURRENT) USE OF INSULIN Status: Chronic - Assessment/Plan 1. Postparutm care: post op day 2: pain controlled. Lovenox for DVT PPx. Breast feeding well. 2. cHTN with superimposed Preeclampsia (resolved): s/p magnesium. Monitor BP. 3. IDDM: restart metformin. Increase lantus to 30 units HS. Accuchecks ACHS. Will increase metformin tomorrow. 4. Anxiety: continue prozac 5. Hx migraine: no headaches at this time. 6. Hx Sinus tachycardia: pulse elevated this morning. consider restarting beta herman. 7. endometritis: continue Ampicillin/sulbactam for 24 hours. If vitals WNL tomorrow morning, will d/c 8. Acute blood loss anemia: start supplemental iron therapy. dispo: likely d/c on Thursday. Addendum - Attending - Attending Attestation Date/Time: 08/11/18 0339 I personally evaluated the patient and discussed the management with Dr. Mendez/ Alicia. I agree with the History, Examination, Assessment and Plan documented above with any addition or exceptions noted below. Unasyn started o/n. AF. Encourage ambulation. Start labetalol. Hopeful d/c tomorrow.
[2018-08-11] MEDS ORDERED: Insulin Glargine 15 UNITS in Pre-Filled Syringe 1 EACH SC SCH (07:30)
[2018-08-11] MEDS: Prenatal Vitamin 1 TAB PO SCH (08:36)
[2018-08-11] MEDS: Famotidine 20 MG TAB PO SCH (08:36)
[2018-08-11] MEDS: Docusate Calcium (SURFAK) 240 MG CAP PO SCH ×2 (08:36→21:05)
[2018-08-11] MEDS: metFORMIN 500 MG TAB PO SCH ×2 (08:37→17:51)
[2018-08-11] MEDS: Ferrous Sulfate 325 MG TAB PO SCH ×2 (08:38→17:49)
[2018-08-11] MEDS ORDERED: Labetalol 100 MG TAB PO SCH (12:00)
[2018-08-11] MEDS ORDERED: Insulin Glargine 30 UNITS in Pre-Filled Syringe 1 EACH SC SCH (21:00)
[2018-08-11] MEDS: Enoxaparin Sodium 40 MG/0.4 ML SYRINGE SC SCH (21:05)
[2018-08-11] MEDS: FLUoxetine HCl 20 MG CAP PO SCH (21:05)
[2018-08-11] MEDS: Labetalol 100 MG TAB PO SCH (21:06)
[2018-08-12] MEDS: HYDROcodone/Acetaminophen 5/325 mg Tablet PO PRN ×3 (05:03→12:39)
[2018-08-12] MEDS: Ibuprofen 800 MG TAB PO SCH ×2 (05:03→14:03)
--- NOTE | 2018-08-12 07:16 | PDOC.PP ---
Post Progress Note Post Day #: 3 Subjective: Pain controlled with NSAIDs and [place]. Pumping well. States left breast not producing as expected. PO intake tolerated: yes Flatus: yes Ambulation: yes Vital Signs (12 hours) Temp Pulse Resp BP BP Pulse Ox 08/12/18 05:00 98.1 F 93 16 131/80 08/11/18 23:10 99.2 F 99 16 119/56 L 08/11/18 21:06 90 08/11/18 19:55 97.6 F 93 18 114/63 98 Weight Weight 128.367 kg - Physical Examination General: NAD Cardiovascular: no m/r/g, RRR Respiratory: clear to auscultation bilaterally, non-labored breathing Abdominal: + bowel sounds, lochia, no distention, appropriately TTP Fundus firm & at: non-palpable due to body habitus Extremities: negative homans (B) Skin: CS incision dry & intact (no drainage in wound vac.), no rash Neurological: no gross focal deficits Psychiatric: A&Ox3, normal affect Result Diagrams: 08/11/18 06:02 08/08/18 20:47 Additional Labs: Post Labs Blood Type O POSITIVE 08/08/18 20:47 Hep Bs Antigen Non-Reactive S/CO (NonReactive) 08/08/18 20:47 (1) Anxiety Code(s): F41.9 - ANXIETY DISORDER, UNSPECIFIED Status: Acute (2) Depression Code(s): F32.9 - MAJOR DEPRESSIVE DISORDER, SINGLE EPISODE, UNSPECIFIED Status : Acute Qualifiers: Depression Type: unspecified Qualified Code(s): F32.9 - Major depressive disorder, single episode, unspecified (3) Intrauterine normal Code(s): Z34.90 - ENCNTR FOR SUPRVSN OF NORMAL , UNSP, UNSP TRIMESTER Status: Acute (4) Migraine Code(s): G43.909 - MIGRAINE, UNSP, NOT INTRACTABLE, WITHOUT STATUS MIGRAINOSUS Status: Acute Qualifiers: Migraine type: unspecified Status migrainosus presence: without status migrainosus Intractability: not intractable Qualified Code(s): G43.909 - Migraine, unspecified, not intractable, without status migrainosus (5) Obesity Code(s): E66.9 - OBESITY, UNSPECIFIED Status: Acute (6) Hypertension Code(s): I10 - ESSENTIAL (PRIMARY) HYPERTENSION Status: Chronic Qualifiers: Hypertension type: essential hypertension Qualified Code(s): I10 - Essential (primary) hypertension (7) IDDM (insulin dependent diabetes mellitus) Code(s): E11.9 - TYPE 2 DIABETES MELLITUS WITHOUT COMPLICATIONS; Z79.4 - F[facility] (CURRENT) USE OF INSULIN Status: Chronic - Assessment/Plan 1. Postparutm care: post op day 3: pain controlled. Lovenox for DVT PPx. Breast feeding well. 2. cHTN with superimposed Preeclampsia (resolved): s/p magnesium. Monitor BP. BP improved with labetalol. 3. IDDM: adequate control with lantus and metformin. increased metformin to 1000 mg BID. 4. Anxiety: continue prozac 5. Hx migraine: no headaches at this time. 6. Hx Sinus tachycardia: better with beta herman. 7. endometritis: abx d/c. VSS for 24 hours. 8. Acute blood loss anemia: start supplemental iron therapy. repeat H&H outpatient. Dispo: infant required phototherapy yesterday. Dispo pending repeat bilirubin. patient lives 1.5 hrs from [facility]. If additional monitoring needed on , consider keeping until tomorrow morning. Needs f/u with me next week in clinic. Addendum - Attending - Attending Attestation Date/Time: 08/12/18 1424 I personally evaluated the patient and discussed the management with Dr. Mendez and Alicia. I agree with the History, Examination, Assessment and Plan documented above with any addition or exceptions noted below.
[2018-08-12] MEDS ORDERED: metFORMIN 500 MG TAB PO SCH (08:00)
[2018-08-12] MEDS: Docusate Calcium (SURFAK) 240 MG CAP PO SCH (08:20)
[2018-08-12] MEDS: Prenatal Vitamin 1 TAB PO SCH (08:20)
[2018-08-12] MEDS: Famotidine 20 MG TAB PO SCH (08:21)
[2018-08-12] MEDS: Ferrous Sulfate 325 MG TAB PO SCH (08:21)
[2018-08-12] MEDS: Labetalol 100 MG TAB PO SCH (08:22)
[2018-08-12] MEDS: Simethicone Chewable 80 MG TAB PO PRN (08:26)
--- NOTE | 2018-08-12 11:04 | ULT ---
EXAM: Right lower extremity venous Doppler US HISTORY: Right lower extremity edema and pain FINDINGS: Grayscale, color-flow, Doppler evaluation, spectral analysis of the right lower extremity venous stru ctures is performed with 2-D imaging. The right common femoral, superficial femoral, popliteal, posterior tibial, proximal greater saphenous and profunda femoral veins are imaged. There is normal luminal compressibility, flow, and augmentation the visualized deep venous structures of the right lower extremity. IMPRESSION: No evidence of a deep vein thrombosis in the right lower extremity.
[2018-08-12 12:32] VITALS: BP 145/81; TEMP 98.4
== END 2018-08-12 14:10 | disposition home or self-care (01) | DRG 786 ==
LOC: EEVIPCON 19:45 → L&D 19:45 → 3SW 08-10 23:21
PROVIDERS: ADMIT Family Medicine; ATTEND Family Medicine
PROC: 10D00Z1 Extraction of Products of Conception, Low, Open Approach (ICD-10-PCS; principal; 2018-08-09)
DX: O24.424 Gestational diabetes mellitus in childbirth, insulin controlled (principal); G93.5 Compression of brain; O10.92 Unspecified pre-existing hypertension complicating childbirth; O99.354 Diseases of the nervous system complicating childbirth; D62 Acute posthemorrhagic anemia; O11.4 Pre-existing hypertension with pre-eclampsia, complicating childbirth; O99.214 Obesity complicating childbirth; E66.01 Morbid (severe) obesity due to excess calories; O99.52 Diseases of the respiratory system complicating childbirth; G43.909 Migraine, unspecified, not intractable, without status migrainosus; O62.1 Secondary uterine inertia; Z3A.37 37 weeks gestation of pregnancy; Z37.0 Single live birth; O99.02 Anemia complicating childbirth
CPT/HCPCS: 36415; 36416; 51702; 76815; 80053; 81001; 82570; 82805; 84156; 84550; 85027; 85520; 86780; 86850; 86900; 86901; 87340; 88307; C1726; J0295; J0360; J0456; J0595; J0690; J1200; J1650; J1815; J1825; J1885; J2001; J2175; J2270; J2405; J2590; J3475; J3490; J7050; S0020